=== PATIENT | male | born 1955 | race American Indian/Alaskan Native ===

== ENCOUNTER 2024-08-01 15:32 | Emergency (ER) | payer MEDICARE, MEDICAID, SELFPAY ==
--- NOTE | 2024-08-01 15:38 | EDNOTE_ITS ---
ED General RME/HPI General Chief complaint: General Adult/Misc Complain Stated complaint: CATHETER ISSUES Time Seen by Provider: 08/01/24 15:37 Arrival date/time: 08/01/24 15:32 CC: Clogged Arevalo catheter onset yesterday, patient has no sensation, patient presents the ER via EMS who reports stable vital signs from assisted care facility for catheter not draining. Patient has no specific complaints Related Data Home Medications ?Medication ?Instructions ?Recorded ?Confirmed tamsulosin 0.4 mg capsule 0.4 mg PO QDAY 12/28/20 03/15/24 atorvastatin 10 mg tablet 1 tab PO HS 03/14/22 03/15/24 oxybutynin chloride 5 mg tablet 5 mg PO QDAY 12/10/22 03/15/24 ascorbic acid (vitamin C) 500 mg 500 mg PO QDAY 07/02/23 03/15/24 tablet bisacodyl 10 mg rectal suppository 10 mg NJ QDAY PRN Constipation 07/02/23 03/15/24 (Dulcolax (bisacodyl)) hydrocodone 10 mg-acetaminophen 1 tab PO Q8H PRN Pain (Scale Score 07/02/23 03/15/24 325 mg tablet 4-6) ibuprofen 200 mg tablet 200 mg PO Q6H PRN Pain (Scale 07/02/23 03/15/24 Score 1-3) sodium phosphates 19 gram-7 118 ml NJ QDAY PRN Constipation 07/02/23 03/15/24 gram/118 mL enema (Fleet Enema) Previous Rx's ?Medication ?Instructions ?Recorded ciprofloxacin HCl 500 mg tablet 500 mg PO BID #14 tabs 01/03/24 (Cipro) sulfamethoxazole 800 1 tab PO BID 7 days #14 tabs 08/01/24 mg-trimethoprim 160 mg tablet (Bactrim DS) Allergies Allergy/AdvReac Type Severity Reaction Status Date / Time No Known Allergies Allergy Verified 03/15/24 10:00 Review of Systems Review of Systems Narrative Review of Systems: GEN: No fever, no chills, no weight loss EYES: No discharge, no visual changes, no pain HEENT: No ear pain, no congestion, no sore throat PULM: No shortness of breath, no cough, no congestion CV: No chest pain, no dyspnea on exertion, no palpitations GI: No nausea, no vomiting, no diarrhea, no pain, no constipation : No frequency, no urgency, no dysuria MUSC/SKEL: No joint pain, no back pain SKIN: No rash PSYCH: No hallucinations, no depression HEME/LYMPH: No easy bleeding or bruising tendencies NEURO: No weakness, no headache Past Medical History Past Medical History NEUROLOGIC: Positive Cerebrovascular Accident; Negative Neurological Disorders or Seizures CARDIAC: Positive Cardiac Disorders, Peripheral Vascular Disease and Hypertension; Negative Congestive Heart Failure RESPIRATORY: Negative Chronic Obstructive Pulmonary Disease (COPD) or Asthma GASTROINTESTINAL: Negative Gastrointestinal Disorders or Hepatitis GENITOURINARY: Positive Genitourinary Disorders, Renal Disease and Benign Prostatic Hyperplasia MUSCULOSKELETAL: Positive Musculoskeletal Disorders; Negative Rheumatoid Arthritis, Gout or Osteomyelitis ENT: Negative Cataracts ENDOCRINE: Negative Diabetes Mellitus Type 1 or Diabetes Mellitus Type 2 HEMATOLOGIC: Negative Blood Disorders or Sickle Cell Disease OTHER HISTORY: Positive Hospitalization and Falls; Negative Autoimmune Disease, Shingles, Blood Transfusions, Anesthesia Reactions, MRSA, Human Immunodeficiency Virus (HIV), Measles or Cancer Family History FAMILY HISTORY: Negative Family Psychiatric Problems, Family Respiratory Disorders, Family Cardiac Disorders, Family Gastrointestinal Problems, Family Cancer, Family Surgery or Family Anesthesia Reaction Surgical History SURGICAL: Negative Cardiac Surgery, Endocrine Surgery, Thyroidectomy, Ear Surgery or Abdominal Surgery Social History SMOKING STATUS: Never smoker SECOND HAND EXPOSURE: No SUBSTANCE USE: marijuana ED Exam Narrative Physical exam: [General: Deconditioned but not in any acute distress Head normocephalic HEENT: Within acceptable limits Neck is supple nontender Chest equal chest rise nontender to palpation Respiratory: Clear to auscultation no wheezes crackles or rubs CV: Rate rhythm is regular no murmurs rubs or clicks Abdomen is distended secondary to body habitus soft nontender no masses positive bowel sounds all 4 quadrants Back: No CVA tenderness no spinous process tenderness from cervical spine thoracic and lumbar spine Skin: Intact no petechiae rash induration ulceration or crepitus Extremities: Moving all extremity against resistance cap refill less than 2 seconds neurosensory intact Neuro: Awake alert oriented x3 Glascow coma 15 no focal deficits] Course Course Course Narrative: Review of old urine culture and sensitivity, the most recent, shows that it is Proteus Mirabelli, is a bacterium and it is sensitive to ceftriaxone and Bactrim. Quality Measures none Orders Category Date Time Status Arevalo [Urinary Catheter] Care 08/01/24 15:37 Completed Urinalysis Stat Lab 08/01/24 18:42 Completed Urine Culture Stat Lab 08/01/24 18:42 Received cefTRIAXone [Rocephin] 1,000 mg Med 08/01/24 19:33 Discontinued Lidocaine 1% 20 ml [Xylocaine 1% 20 ML] 2.1 ml IM X1 Vital Signs Vital signs: Vital Signs Temperature 98.4 F 08/01/24 15:59 Pulse Rate 55 L 08/01/24 15:59 Respiratory Rate 18 08/01/24 15:59 Blood Pressure 110/67 08/01/24 15:59 Pulse Oximetry (%) 96 08/01/24 15:59 Oxygen Delivery Method Room Air 08/01/24 15:59 [facility] Patient data External records reviewed:: [facility] previous records and EMS form Clinical information provided by:: patient and EMS Social determinants that could affect healthcare access:: none Patient has the following chronic illnesses:: Paraplegia How is presenting disease/condition affected by chronic disease/condition?: uneffected by Evaluation data The following diagnostics were reviewed and interpreted by me:: lab results Lab and/or radiology exams considered but not ordered:: Urine is positive for UTI Interpretation Summary: UTI Arevalo change Medications Medications considered but not ordered:: Negative Medication administrations:: Medication Administration History Discontinued Medications Ceftriaxone Sodium 1,000 mg/ (Lidocaine HCl 2.1 ml) 0 mg IM X1 ONE Stop: 08/01/24 19:34 Last Admin: 08/01/24 20:42 Dose: 1,000 mg Documented By: DB None Consultations Consultation(s) initiated? (list below): No Diagnosis Differential Diagnosis ED Complaint MDM: UTI Arevalo change Arevalo obstruction Most likely diagnosis given after review of the tests above:: UTI Arevalo change Admission Indicated Admission indicated?: not indicated Explain why admission is indicated or not indicated:: Stable for discharge Admission Request Was there a request for admission?: No Disposition Plan Disposition Plan: Discharge Discharge Attestation Discharge Attestation: The patient and all family members were given an opportunity to ask questions and understood the discharge instructions. Discharge instructions specifically effects, indications for sooner follow up or return to the emergency department, and the expected course of current diagnosis. Patient condition: Stable Medical Decision Making Differential Diagnosis Differential Diagnosis: UTI Arevalo change Arevalo obstruction Lab Data Labs: Lab Results 08/01/24 Range/Units 18:42 Ur Collection Type Catheter Urine Color Yellow (Lt Yel-Yel) Urine Clarity Turbid A (Clear/Hazy) Urine pH 7.5 H (5.0-7.0) Ur Specific [place] 1.019 (1.001-1.035) Urine Protein 3+ A (Neg - Trace) Urine Glucose (UA) Negative (Negative) Urine Ketones Negative (Negative) Urine Blood 2+ A (Negative) Urine Nitrite Positive (Negative) Urine Bilirubin Negative (Negative) Urine Urobilinogen (Auto) Negative (0.0-1.0) mg/dL Ur Leukocyte Esterase Positive (Negative) Urine RBC 175 H (0-3) /hpf Urine WBC 631 H (0-5) /hpf Ur Squamous Epith Cells 5 (0-5) /hpf Urine Bacteria 3+ A (None) Urine Yeast (Budding) Present A (None) Discharge Plan Plan Patient Disposition: HOME (Self Care) Patient condition on transfer: Stable Prescriptions/Referrals Prescriptions/Med Rec: New sulfamethoxazole-trimethoprim [Bactrim DS] 800-160 mg tablet 1 tab PO BID 7 Days Qty: 14 0RF No Action tamsulosin 0.4 mg Capsule 0.4 mg PO QDAY atorvastatin 10 mg tablet 1 tab PO HS Patient Comments: TAKE 1 TABLET BY MOUTH EVERYDAY AT BEDTIME oxybutynin chloride 5 mg Tablet 5 mg PO QDAY hydrocodone-acetaminophen 10-325 mg Tablet 1 tab PO Q8H PRN (Reason: Pain (Scale Score 4-6)) ascorbic acid (vitamin C) 500 mg Tablet 500 mg PO QDAY bisacodyl [Dulcolax (bisacodyl)] 10 mg Suppository 10 mg NJ QDAY PRN (Reason: Constipation) Fleet Enema 19-7 gram/118 mL Enema 118 ml NJ QDAY PRN (Reason: Constipation) ibuprofen 200 mg Tablet 200 mg PO Q6H PRN (Reason: Pain (Scale Score 1-3)) ciprofloxacin HCl [Cipro] 500 mg tablet 500 mg PO BID Qty: 14 0RF Referrals: No Primary/Family,Physician [Primary Care Provider] - In 1 week Problem List Clinical Impression: Urinary tract infection, Obstructed Arevalo catheter Patient/Caregiver Discharge Instructions Education Materials: ED Bladder Infection, Male (Adult) Additional Instructions: Take the medications until complete and return the emergency room if there is worsening of symptoms. Print Language: Macedonian Stand Alone Forms: [employer] Patient Portal Info Letter MD Attestation MD Attestation The patient was seen by the midlevel practitioner. I, the co-signing physician, was present during the entire ER visit. While I did not physically examine the patient, I was available for consultation as needed.
[2024-08-01 15:59] VITALS: BP 110/67; PULSE 55; PULSE 78; RESP 18; RESP 20; TEMP 36.9; O2SAT 96; O2SAT 98; BMI 26.7
[2024-08-01 18:04] VITALS: BP 109/62; PULSE 49; RESP 13; TEMP 36.6; O2SAT 97
[2024-08-01 18:57] LABS: Collection Type, Urine Catheter
[2024-08-01 19:13] LABS: Bacteria,Urine 3+; Bilirubin,Urine Negative (Negative); Blood,Urine 2+ (Negative); Budding Yeast,Urine Present; Glucose, Urine Negative (Negative); Ketones,Urine Negative (Negative); Leukocyte Esterase,Urine Positive (Negative); Nitrite,Urine Positive (Negative); PH,Urine 7.5 (5.0-7.0); Protein,Urine 3+ (Neg - Trace); RBC,Urine 175 /hpf (0-3); Specific Gravity,Urine 1.019 (1.001-1.035); Squamous Epithelial Cell,Urine 5 /hpf (0-5); Urobilinogen,Urine Negative mg/dL (0.0-1.0); WBC,Urine 631 /hpf (0-5)
[2024-08-01 19:17] LABS: Clarity,Urine Turbid (Clear/Hazy); Color,Urine Yellow (Lt Yel-Yel)
[2024-08-01] MEDS: cefTRIAXone 1,000 MG, LIDOCAINE 1% 20 ML 2.1 ML IM (20:42)
--- NOTE | 2024-08-01 20:53 | PC.NURSE ---
Called [facility] and spoke to Maegan SAUCEDO, to whom i gave full report
== END 2024-08-01 21:15 | disposition home or self-care (01) ==
PROVIDERS: Registered Nurse General Practice; Emergency Provider Emergency Medicine
DX: T83.091A Other mechanical complication of indwelling urethral catheter, initial encounter (principal); N39.0 Urinary tract infection, site not specified
CPT/HCPCS: 51702; 81001; 87077; 87086; 87186; 96372; 99283; J0696; J3490

== ENCOUNTER 2024-09-14 07:58 | Emergency (ER) | payer MEDICARE, MEDICAID, SELFPAY ==
[2024-09-14 08:23] VITALS: PULSE 79; RESP 16; O2SAT 98; BMI 28.3
--- NOTE | 2024-09-14 08:36 | PD.EDADULT ---
ED General RME/HPI General Chief complaint: General Adult/Misc Complain Stated complaint: CATHETER CHANGE Time Seen by Provider: 09/14/24 08:31 Arrival date/time: 09/14/24 07:58 RME / HPI RME / HPI narrative: DR. FREEMAN MAIN ED EVALUATION: 69 year old male presents to the Emergency Department [facility] from [facility] with complaint of catheter leaking. Otherwise denies any other symptoms. Related Data Home Medications ?Medication ?Instructions ?Recorded ?Confirmed tamsulosin 0.4 mg capsule 0.4 mg PO QDAY 12/28/20 03/15/24 atorvastatin 10 mg tablet 1 tab PO HS 03/14/22 03/15/24 oxybutynin chloride 5 mg tablet 5 mg PO QDAY 12/10/22 03/15/24 ascorbic acid (vitamin C) 500 mg 500 mg PO QDAY 07/02/23 03/15/24 tablet bisacodyl 10 mg rectal suppository 10 mg [place] QDAY PRN Constipation 07/02/23 03/15/24 (Dulcolax (bisacodyl)) hydrocodone 10 mg-acetaminophen 1 tab PO Q8H PRN Pain (Scale Score 07/02/23 03/15/24 325 mg tablet 4-6) ibuprofen 200 mg tablet 200 mg PO Q6H PRN Pain (Scale 07/02/23 03/15/24 Score 1-3) sodium phosphates 19 gram-7 118 ml MI QDAY PRN Constipation 07/02/23 03/15/24 gram/118 mL enema (Fleet Enema) Previous Rx's ?Medication ?Instructions ?Recorded ciprofloxacin HCl 500 mg tablet 500 mg PO BID #14 tabs 01/03/24 (Cipro) cephalexin 500 mg capsule 500 mg PO QID #28 caps 09/14/24 Allergies Allergy/AdvReac Type Severity Reaction Status Date / Time No Known Allergies Allergy Verified 03/15/24 10:00 Review of Systems Review of Systems Systems Reviewed: All systems reviewed, normal except as documented Narrative Review of Systems: GEN: No fever, no chills, no weight loss EYES: No discharge, no visual changes, no pain HEENT: No ear pain, no congestion, no sore throat PULM: No shortness of breath, no cough, no congestion CV: No chest pain, no dyspnea on exertion, no palpitations GI: No nausea, no vomiting, no diarrhea, no pain, no constipation : No frequency, no urgency and no dysuria MUSC/SKEL: No joint pain, no back pain SKIN: No rash PSYCH: No hallucinations, no depression HEME/LYMPH: No easy bleeding or bruising tendencies NEURO: No weakness, no headache Past Medical History Past Medical History NEUROLOGIC: Positive Cerebrovascular Accident; Negative Neurological Disorders or Seizures CARDIAC: Positive Cardiac Disorders, Peripheral Vascular Disease and Hypertension; Negative Congestive Heart Failure RESPIRATORY: Negative Chronic Obstructive Pulmonary Disease (COPD) or Asthma GASTROINTESTINAL: Negative Gastrointestinal Disorders or Hepatitis GENITOURINARY: Positive Genitourinary Disorders, Renal Disease and Benign Prostatic Hyperplasia MUSCULOSKELETAL: Positive Musculoskeletal Disorders; Negative Rheumatoid Arthritis, Gout or Osteomyelitis ENT: Negative Cataracts ENDOCRINE: Negative Diabetes Mellitus Type 1 or Diabetes Mellitus Type 2 HEMATOLOGIC: Negative Blood Disorders or Sickle Cell Disease OTHER HISTORY: Positive Hospitalization and Falls; Negative Autoimmune Disease, Shingles, Blood Transfusions, Anesthesia Reactions, MRSA, Human Immunodeficiency Virus (HIV), Measles or Cancer Family History FAMILY HISTORY: Negative Family Psychiatric Problems, Family Respiratory Disorders, Family Cardiac Disorders, Family Gastrointestinal Problems, Family Cancer, Family Surgery or Family Anesthesia Reaction Surgical History SURGICAL: Negative Cardiac Surgery, Endocrine Surgery, Thyroidectomy, Ear Surgery or Abdominal Surgery Social History SMOKING STATUS: Never smoker SECOND HAND EXPOSURE: No SUBSTANCE USE: marijuana ED Exam Narrative Physical exam: GENERAL APPEARANCE: alert and oriented x 4, well-developed, well-nourished, no acute distress VITALS: All vitals were reviewed and the pulse ox is 98% on room air, which is normal according to my interpretation. HEENT: Normocephalic, atraumatic; pupils equal, round, reactive to light; EOMI; mucous membranes pink, moist; oropharynx clear NECK: Supple LUNGS: CTABL; no wheezes, no rales, no rhonchi HEART: Regular rate, regular rhythm; normal S1, S2; no murmurs ABDOMEN: non distended; normal BS; soft, no tenderness, no guarding, no rebound; no masses, no organomegaly, no hernia BACK: no CVA tenderness EXTREMITIES: atraumatic; no edema NEUROLOGIC: at baseline PSYCHIATRIC: at baseline SKIN: warm, dry, normal color; no rashes Course Quality Measures none Orders Category Date Time Status Arevalo [Urinary Catheter, Remove] ONCE Care 09/14/24 08:48 Completed Arevalo [Urinary Catheter] QS Care 09/14/24 08:48 Active UA, C/S IF [Urinalysis, C/S if Indicated] Stat Lab 09/14/24 09:00 Completed Urine Culture Stat Lab 09/14/24 09:00 Received cephALEXin [Keflex] Med 09/14/24 11:30 Discontinued 500 mg PO X1 ONE Vital Signs Vital signs: Vital Signs Temperature 98.4 F 09/14/24 08:50 Pulse Rate 57 L 09/14/24 08:50 Respiratory Rate 16 09/14/24 08:50 Blood Pressure 144/94 H 09/14/24 08:50 Pulse Oximetry (%) 97 09/14/24 08:50 Oxygen Delivery Method Room Air 09/14/24 08:50 [facility] Patient data External records reviewed:: [facility] previous records (Reviewed last ED visit dated 08/01/24, discharged with the following: Obstructed Arevalo catheter.) Clinical information provided by:: patient and EMS Social determinants that could affect healthcare access:: housing Patient has the following chronic illnesses:: Paraplegia How is presenting disease/condition affected by chronic disease/condition?: uneffected by Evaluation data The following diagnostics were reviewed and interpreted by me:: lab results Lab and/or radiology exams considered but not ordered:: none Interpretation Summary: UTI Medications Medications considered but not ordered:: none Medication administrations:: Medication Administration History Discontinued Medications Cephalexin HCl (Cephalexin 250 Mg Capsule) 500 mg PO X1 ONE Stop: 09/14/24 11:31 Last Admin: 09/14/24 12:44 Dose: 500 mg Documented By: SELYWN see above Consultations Consultation(s) initiated? (list below): No Diagnosis Differential Diagnosis ED Complaint MDM: UTI, pylonephritis, complication of Arevalo catheter, Arevalo catheter obstruct Most likely diagnosis given after review of the tests above:: Complication of Arevalo catheter UTI Admission Indicated Admission indicated?: not indicated Explain why admission is indicated or not indicated:: Patient has no emergent abnormalities on his studies and can be managed on an outpatient basis. Admission Request Was there a request for admission?: No Disposition Plan Disposition Plan: Discharge Discharge Attestation Discharge Attestation: The patient and all family members were given an opportunity to ask questions and understood the discharge instructions. Discharge instructions specifically effects, indications for sooner follow up or return to the emergency department, and the expected course of current diagnosis. Patient condition: Stable Medical Decision Making Differential Diagnosis Differential Diagnosis: UTI, pylonephritis, complication of Arevalo catheter, Arevalo catheter obstruct Lab Data Labs: Lab Results 09/14/24 Range/Units 09:00 Ur Collection Type Catheter Urine Color Lt-Yellow (Lt Yel-Yel) Urine Clarity Cloudy A (Clear/Hazy) Urine pH 7.5 H (5.0-7.0) Ur Specific [place] 1.012 (1.001-1.035) Urine Protein 2+ A (Neg - Trace) Urine Glucose (UA) Negative (Negative) Urine Ketones Negative (Negative) Urine Blood 3+ A (Negative) Urine Nitrite Positive (Negative) Urine Bilirubin Negative (Negative) Urine Urobilinogen (Auto) Negative (0.0-1.0) mg/dL Ur Leukocyte Esterase Positive (Negative) Urine RBC 291 H (0-3) /hpf Urine WBC 574 H (0-5) /hpf Ur Squamous Epith Cells 5 (0-5) /hpf Urine Bacteria 3+ A (None) Ur Culture Indicated? Yes Discharge Plan Plan Patient Disposition: Xfer Skilled Nsg Fac (SNF) Prescriptions/Referrals Prescriptions/Med Rec: New cephalexin 500 mg capsule 500 mg PO QID Qty: 28 0RF No Action tamsulosin 0.4 mg Capsule 0.4 mg PO QDAY atorvastatin 10 mg tablet 1 tab PO HS Patient Comments: TAKE 1 TABLET BY MOUTH EVERYDAY AT BEDTIME oxybutynin chloride 5 mg Tablet 5 mg PO QDAY hydrocodone-acetaminophen 10-325 mg Tablet 1 tab PO Q8H PRN (Reason: Pain (Scale Score 4-6)) ascorbic acid (vitamin C) 500 mg Tablet 500 mg PO QDAY bisacodyl [Dulcolax (bisacodyl)] 10 mg Suppository 10 mg MI QDAY PRN (Reason: Constipation) Fleet Enema 19-7 gram/118 mL Enema 118 ml MI QDAY PRN (Reason: Constipation) ibuprofen 200 mg Tablet 200 mg PO Q6H PRN (Reason: Pain (Scale Score 1-3)) ciprofloxacin HCl [Cipro] 500 mg tablet 500 mg PO BID Qty: 14 0RF Problem List Clinical Impression: Complication of Arevalo catheter, UTI (urinary tract infection) Patient/Caregiver Discharge Instructions Education Materials: Urinary Tract Infections in Men, ED Arevalo Catheter, Care Print Language: [place]araguan Stand Alone Forms: [employer] Patient Portal Info Letter
[2024-09-14 08:50] VITALS: BP 144/94; PULSE 57; RESP 16; TEMP 36.9; O2SAT 97
[2024-09-14 09:18] LABS: Collection Type, Urine Catheter
[2024-09-14 09:29] LABS: Bacteria,Urine 3+; Bilirubin,Urine Negative (Negative); Blood,Urine 3+ (Negative); Glucose, Urine Negative (Negative); Ketones,Urine Negative (Negative); Leukocyte Esterase,Urine Positive (Negative); Nitrite,Urine Positive (Negative); PH,Urine 7.5 (5.0-7.0); Protein,Urine 2+ (Neg - Trace); RBC,Urine 291 /hpf (0-3); Specific Gravity,Urine 1.012 (1.001-1.035); Squamous Epithelial Cell,Urine 5 /hpf (0-5); Urobilinogen,Urine Negative mg/dL (0.0-1.0); WBC,Urine 574 /hpf (0-5)
[2024-09-14 09:30] LABS: Clarity,Urine Cloudy (Clear/Hazy); Color,Urine Lt-Yellow (Lt Yel-Yel); Culture Indicated,Urine Yes
[2024-09-14 11:03] VITALS: BP 130/75; PULSE 70; RESP 18; TEMP 36.7; O2SAT 98
--- NOTE | 2024-09-14 12:05 | PC.CC ---
ASElisa Watson was consulted by frog farmer Kristina for transportation back to [facility] for patient. Patient confirmed information on facesheet. ASW arranged transportation with [facility] and [facility].
[2024-09-14] MEDS: cephALEXin 250 MG CAPSULE 500 MG PO (12:44)
[2024-09-14 12:46] VITALS: BP 150/87; PULSE 60; RESP 18; O2SAT 97
--- NOTE | 2024-09-14 12:57 | PC.NURSE ---
TELEPHONE REPORT CALLED TO DON AT [facility] AT THIS TIME, PATIENT PENDING TRANSPORTATION BACK TO NURSING FACILITY.
[2024-09-14 14:33] VITALS: BP 142/83; PULSE 57; RESP 17; TEMP 36.6; O2SAT 98
[2024-09-14 16:50] VITALS: BP 127/96; PULSE 88; RESP 16; O2SAT 97
== END 2024-09-14 16:51 | disposition skilled nursing facility (03) ==
LOC: SERX 18:30
PROVIDERS: Emergency Provider Emergency Medicine
DX: T83.038A Leakage of other urinary catheter, initial encounter (principal); N39.0 Urinary tract infection, site not specified; Y84.6 Urinary catheterization as the cause of abnormal reaction of the patient, or of later complication, without mention of misadventure at the time of the procedure
CPT/HCPCS: 51702; 81001; 87077; 87086; 87186; 99283; A9270

== ENCOUNTER 2024-10-24 22:20 | Emergency (ER) | payer MEDICARE, MEDICAID, SELFPAY ==
[2024-10-24 22:27] VITALS: PULSE 96; RESP 18; O2SAT 98; BMI 27.4
[2024-10-24 22:30] VITALS: BP 133/88; PULSE 94; RESP 18; TEMP 38.3; O2SAT 98
[2024-10-24 22:52] LABS: Collection Type, Urine Catheter
[2024-10-24 23:08] LABS: Bilirubin,Urine Negative (Negative); Blood,Urine 3+ (Negative); Budding Yeast,Urine Present; Glucose, Urine Negative (Negative); Ketones,Urine Negative (Negative); Leukocyte Esterase,Urine Positive (Negative); Nitrite,Urine Positive (Negative); Protein,Urine 2+ (Neg - Trace); RBC,Urine 566 /hpf (0-3); Specific Gravity,Urine 1.023 (1.001-1.035); Squamous Epithelial Cell,Urine 26 /hpf (0-5); Urobilinogen,Urine Negative mg/dL (0.0-1.0); WBC,Urine 553 /hpf (0-5)
[2024-10-24 23:09] LABS: Clarity,Urine Turbid (Clear/Hazy); Color,Urine Yellow (Lt Yel-Yel)
--- NOTE | 2024-10-24 23:15 | EKG_ITS ---
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
--- NOTE | 2024-10-24 23:15 | XR_ITS ---
Examination: AP chest single view Technique one AP portable semiupright chest single view Exam date and time: October 24, 2024 11:40 PM Comparison October 28, 2021 Indications: Sepsis alert today Findings: Normal heart size No pneumonia or pulmonary edema Prominent osteopenia The patient's head overlies the right chest Impression: No pneumonia identified
--- NOTE | 2024-10-24 23:17 | EDNOTE_ITS ---
ED Male Genitalurinary RME/HPI General Chief complaint: Urogenital-Male Stated complaint: ABD PAIN Time Seen by Provider: 10/24/24 22:46 Arrival date/time: 10/24/24 22:20 RME / HPI RME / HPI Narrative: Dr. Dejesus?s Main ED Evaluation: 69yo male LYNDON from [facility] presents to the ED due to his coronel catheter being clogged. Per EMS, patient states his coronel catheter has been clogged since Thursday. Patient states his lower abdomen has been hurting today, so he was sent over for evaluation. He states he has been drinking fluids. He denies any fever, chills, chest pain or any other associated symptoms. No known allergies. PMHx: indwelling coronel catheter, hemiplegia s/p CVA, PVD, seizures Related Data Home Medications ?Medication ?Instructions ?Recorded ?Confirmed tamsulosin 0.4 mg capsule 0.4 mg PO QDAY 12/28/2011/07 atorvastatin 10 mg tablet 1 tab PO HS 03/14/22 4 oxybutynin chloride 5 mg tablet 5 mg PO QDAY 12/10/22 03/15/24 ascorbic acid (vitamin C) 500 mg 500 mg PO QDAY 03/15/24 tablet bisacodyl 10 mg rectal suppository 10 mg KS QDAY PRN C onstipation 07/02/23 03/15/24 (Dulcolax (bisacodyl)) hydrocodone 10 mg-acetaminophen 1 tab PO Q8H PRN Pain (Scale Score 07/02/23 03/15/24 325 mg tablet 4-6) ibuprofen 200 mg tablet 200 mg PO Q6H PRN Pain (Scal e 07/02/23 03/15/24 Score 1-3) sodium phosphates 19 gram-7 118 ml KS QDAY PRN Constip ation 07/02/23 03/15/24 gram/118 mL enema (Fleet Enema) Previous Rx's ?Medication ?Instructions ?Recorded ciprofloxacin HCl 500 mg tablet 500 mg PO BID #14 tabs 01/03/24 (Cipro) cephalexin 500 mg capsule 500 mg PO QID #28 caps 09/14 Allergies Allergy/AdvReac Type Severity Reaction Status Date / Time No Known Allergies Allergy Verified 03/15/24 10:00 Review of Systems Review of Systems Systems Reviewed: All systems reviewed, normal except as documented Past Medical History Past Medical History NEUROLOGIC: Positive Cerebrovascular Accident; Negative Neurological Disorders or Seizures CARDIAC: Positive Cardiac Disorders, Peripheral Vascular Disease and Hypertension; Negative Congestive Heart Failure RESPIRATORY: Negative Chronic Obstructive Pulmonary Disease (COPD) or Asthma GASTROINTESTINAL: Negative Gastrointestinal Disorders or Hepatitis GENITOURINARY: Positive Genitourinary Disorders, Renal Disease and Benign Prostatic Hyperplasia MUSCULOSKELETAL: Positive Musculoskeletal Disorders; Negative Rheumatoid Arthritis, Gout or Osteomyelitis ENT: Negative Cataracts ENDOCRINE: Negative Diabetes Mellitus Type 1 or Diabetes Mellitus Type 2 HEMATOLOGIC: Negative Blood Disorders or Sickle Cell Disease OTHER HISTORY: Positive Hospitalization and Falls; Negative Autoimmune Disease, Shingles, Blood Transfusions, Anesthesia Reactions, MRSA, Human Immunodeficiency Virus (HIV), Measles or Cancer Family History FAMILY HISTORY: Negative Family Psychiatric Problems, Family Respiratory Disorders, Family Cardiac Disorders, Family Gastrointestinal Problems, Family Cancer, Family Surgery or Family Anesthesia Reaction Surgical History SURGICAL: Negative Cardiac Surgery, Endocrine Surgery, Thyroidectomy, Ear Surgery or Abdominal Surgery Social History SMOKING STATUS: Never smoker SECOND HAND EXPOSURE: No SUBSTANCE USE: marijuana ED Exam Narrative Physical exam: GENERAL APPEARANCE: alert and oriented x 4, well-developed, well-nourished, no acute distress VITALS: All vitals were reviewed and the pulse ox is 98% on room air, which is normal according to my interpretation. HEENT: Normocephalic, atraumatic; pupils equal, round, reactive to light; EOMI; mucous membranes pink, moist; oropharynx clear NECK: Supple LUNGS: CTABL; no wheezes, no rales, no rhonchi HEART: Regular rate, regular rhythm; normal S1, S2; no murmurs ABDOMEN: distended; normal BS; firm, no tenderness, no guarding, no rebound; no masses, no organomegaly, no hernia BACK: no CVA tenderness : indwelling coronel catheter in place with a small amount of dark urine EXTREMITIES: atraumatic; no edema; spastic right-sided hemiparalysis NEUROLOGIC: awake; alert and oriented x4; cranial nerves II-XII grossly intact; no focal sensory or motor deficits PSYCHIATRIC: appropriate mood and affect SKIN: warm, dry, normal color; no rashes Course Course Course Narrative: 2317: Sepsis alert initiated. Orders made at this time are congruent with ED Adult Sepsis Order List. Re-evaluation is to be completed. CXR is ordered for determining the etiology of fever. 2331: NS IVF started. Patient is still receiving IVF at the time of admission. Quality Measures none Orders Category Date Time Status Turner Machine Operator STAT Care 10/24/24 23:15 Active Continuous Pulse Oximetry STAT Care 10/24/24 23:15 Completed EKG (ED ONLY) *Do not use* NOW Care 10/24/24 23:15 Completed Coronel [Urinary Catheter] QS Care 10/24/24 22:33 Active Insert IV NOW Care 10/24/24 23:15 Active NPO STAT Care 10/24/24 23:15 Active Strict Intake and Output Routine Care 10/24/24 23:15 Ordered EKG (ED Only) Stat Exams 10/24/24 23:15 Draft XR chest 1V portable Stat Exams 10/24/24 23:15 Completed B-Type Natriuretic Peptide Stat Lab 10/24/24 23:35 Completed Blood Culture (Lab) Stat Lab 10/24/24 23:35 Received CBC Stat Lab 10/24/24 23:35 Completed Comprehensive Metabolic Panel Stat Lab 10/24/24 23:35 Completed LDH (Lactate Dehydrogenase) Stat Lab 10/24/24 23:35 Completed Lactate (Lactic Acid) Stat Lab 10/24/24 23:35 Completed Lipase Stat Lab 10/24/24 23:35 Completed Magnesium Stat Lab 10/24/24 23:35 Completed Partial Thromboplastin Time Stat Lab 10/24/24 23:35 Completed Phosphorous Stat Lab 10/24/24 23:35 Completed Procalcitonin Stat Lab 10/24/24 23:35 Completed Prothrombin Time with INR Stat Lab 10/24/24 23:35 Completed Troponin I Stat Lab 10/24/24 23:35 Completed Urinalysis Stat Lab 10/24/24 22:38 Completed Urine Culture Stat Lab 10/24/24 22:38 Received Sodium Chloride 0.9% 1000 ml [Ns] 1,776 ml Med 10/24/24 23:15 Discontinued IV 1,776 mls/hr cefTRIAXone [Rocephin] 1,000 mg Med 10/24/24 23:15 Discontinued Sodium Chloride 0.9% (P) [Ns 0.9% (P)] 50 ml IV X1 Vital Signs Vital signs: Vital Signs Temperature 100.9 F H 10/24/24 22:30 Pulse Rate 94 10/24/24 22:30 Respiratory Rate 18 10/24/24 22:30 Blood Pressure 133/88 H 10/24/24 22:30 Pulse Oximetry (%) 98 10/24/24 22:30 Oxygen Delivery Method Room Air 10/24/24 22:30 Urogenital - Male MDM Narrative MDM Narrative:: Scribe Attestation: 10/24/24 - Rula Valdes am scribing for and in the presence of Dr. Dejesus. Patient data External records reviewed:: [facility] previous records (Per chart review, patient was seen here on 09/14/24 for complication of coronel catheter.) Clinical information provided by:: patient Social determinants that could affect healthcare access:: housing (SNF resident) Patient has the following chronic illnesses:: indwelling coronel catheter, hemiplegia s/p CVA, PVD, seizures How is presenting disease/condition affected by chronic disease/condition?: caused by Evaluation data The following diagnostics were reviewed and interpreted by me:: lab results, radiology exam(s) and EKG tracing(s) Lab and/or radiology exams considered but not ordered:: none Interpretation Summary: UA is positive for a UTI, CBC is normal, BUN is 26, Lactic Acid is normal, Procalcitonin is normal, according to my interpretation. CXR shows normal cardiac silhouette, normal sharp diaphragmatic edge, bilateral perihilar infiltrates, normal costophrenic angles, tortuous appearing trachea, according to my interpretation. EKG done at 2325, NSR, rate of 96, left axis deviation, no ectopy, no acute ischemia, according to my interpretation. Medications / Prescriptions Medications or Prescriptions considered but not ordered:: none Medication administrations:: Medication Administration History Discontinued Medications Sodium Chloride (Ns) 1,776 mls @ 1,776 mls/hr 30 ml/kg infuse over 60 min (1776 ml) IV .Q1H ONE Stop: 10/25/24 00:14 Last Admin: 10/24/24 23:31 Dose: 1,776 mls/hr Documented By: AIDA Ceftriaxone Sodium 1,000 mg/ (Sodium Chloride) 50 mls @ 100 mls/hr IV X1 ONE Stop: 10/24/24 23:44 Last Infusion: 10/25/24 00:01 Dose: Infused Documented By: Admin: 10/24/24 23:30 Dose: 100 mls/hr Documented By: CB see above Consultations Consultation(s) initiated? (list below): Yes Consultation #1 (Physician, Specialty, Details): Discussed case with [the resident physician, attending Dr. Lubin] from Hospitalist service regarding admission. Discussed patients ED course, exam findings, labs, and radiology results. The Hospitalist will evaluate the patient for admission. Time: 00:44 Consultation #2 (Physician, Specialty, Details): Spoke with Dr. Lubin, our hospitalist, who feels the patient can be discharged on outpatient antibiotics. Time: 01:31 Diagnosis Urogenital Male Differential Diagnosis: urinary tract infection and other (urosepsis, urinary retention, renal failure, septic shock) Most likely diagnosis given after review of the tests above:: see below Admission Indicated Admission indicated?: not indicated Admission Request Was there a request for admission?: No Disposition Plan Disposition Plan: Discharge Discharge Attestation Discharge Attestation: The patient and all family members were given an opportunity to ask questions an d understood the discharge instructions. Discharge instructions specifically effects, indications for sooner follow up or return to the emergency department, and the expected course of current diagnosis. Patient condition: Stable Critical Care Time Critical Care Time Critical Care Time: Yes Total Critical Care Time (min.): 45 Attestation: The high probability of sudden, clinically significant deterioration in the patient?s condition required the highest level of my preparedness to intervene urgently. The services I provided to this patient were to treat and/or prevent clinically significant deterioration. Services included the following: chart data review, reviewing nursing notes and/or old charts, documentation time, trousseau consultant collaboration regarding findings and treatment options, medication orders and management, direct patient care, vital sign assessments and ordering, interpreting and reviewing diagnostic studies and lab tests. Aggregate critical care time includes only time during which I was engaged in work directly related to the patient?s care, as described above, whether at bedside or elsewhere in the Emergency Department. It did not include time spent performing other reported procedures or the services of residents, students, nurses or physician assistants. Discharge Plan Plan Patient Disposition: Admit Acute Care w/in Hospital Prescriptions/Referrals Prescriptions/Med Rec: No Action tamsulosin 0.4 mg Capsule 0.4 mg PO QDAY atorvastatin 10 mg tablet 1 tab PO HS Patient Comments: TAKE 1 TABLET BY MOUTH EVERYDAY AT BEDTIME oxybutynin chloride 5 mg Tablet 5 mg PO QDAY hydrocodone-acetaminophen 10-325 mg Tablet 1 tab PO Q8H PRN (Reason: Pain (Scale Score 4-6)) ascorbic acid (vitamin C) 500 mg Tablet 500 mg PO QDAY bisacodyl [Dulcolax (bisacodyl)] 10 mg Suppository 10 mg KS QDAY PRN (Reason: Constipation) Fleet Enema 19-7 gram/118 mL Enema 118 ml KS QDAY PRN (Reason: Constipation) ibuprofen 200 mg Tablet 200 mg PO Q6H PRN (Reason: Pain (Scale Score 1-3)) ciprofloxacin HCl [Cipro] 500 mg tablet 500 mg PO BID Qty: 14 0RF cephalexin 500 mg capsule 500 mg PO QID Qty: 28 0RF Problem List Clinical Impression: Sepsis, UTI (urinary tract infection), Dehydration Patient/Caregiver Discharge Instructions Print Language: [place] Stand Alone Forms: [employer] Info., Patient Portal Info Letter
[2024-10-24 23:25] VITALS: PULSE 97
[2024-10-24] MEDS: cefTRIAXone 1,000 MG in SODIUM CHLORIDE 0.9% (P) 50 ML 100 MG IV (23:30)
[2024-10-24] MEDS: SODIUM CHLORIDE 0.9% 1000 ML 1,776 ML 1776 ML IV (23:31)
[2024-10-24 23:46] LABS: Basophils # (Auto) 0.1 Thou/mm3 (0.0-0.2); Basophils % (Auto) 1 % (0-2.5); Eosinophils # (Auto) 0.3 Thou/mm3 (0.0-0.5); Eosinophils % (Auto) 3 % (0-10); Hematocrit 38.5 % (41.0-53.0); Hemoglobin 12.7 g/dL (13.5-16.0); Immature Granulocytes % (Auto) 0 % (0-0); Immature Granulocytes Auto 0.03 Thou/mm3 (0.00-0.00); Lactate (Lactic Acid) 1.1 mMol/L (0.4-2.0); Lymphocytes # (Auto) 1.9 Thou/mm3 (1.0-4.8); Lymphocytes % (Auto) 18 % (10-50); Mean Corpuscular Hemoglobin 28.6 pg (25.0-35.0); Mean Corpuscular Volume 87 fL (80-100); Monocytes # (Auto) 0.8 Thou/mm3 (0.0-0.8); Monocytes % (Auto) 7 % (0-12); Neutrophils # (Auto) 7.4 Thou/mm3 (1.8-7.7); Neutrophils % (Auto) 71 % (37-80); Nucleated Red Blood Cell % 0 /100 WBC (0); Platelet Count 216 Thou/mm3 (140-440); RDW Standard Deviation 43.6 fL (35.1-43.9); Red Blood Count 4.44 Miln/mm3 (4.50-5.90); White Blood Count 10.4 Thou/mm3 (3.8-10.6)
[2024-10-25 00:04] LABS: INR 1.1 (0.9-1.3); Partial Thromboplastin Time 29.9 Seconds (22.0-36.0); Prothrombin Time 11.9 Seconds (9.0-12.2)
[2024-10-25 00:08] LABS: B-Type Natriuretic Peptide 30 pg/mL (0-100)
[2024-10-25 00:17] LABS: Alanine Aminotransferase 35 U/L (10-49); Albumin/Globulin Ratio 1.2 (1.2-2.2); Alkaline Phosphatase 138 U/L (46-116); Anion Gap 9 (7-16); Aspartate Amino Transferase 43 U/L (0-34); BUN/Creatinine Ratio 26 Ratio (12-20); Bilirubin,Total 0.5 mg/dL (0.3-1.2); Blood Urea Nitrogen 26 mg/dL (9-23); Calcium 9.2 mg/dL (8.3-10.6); Calcium (Corrected) 9.2 mg/dL (8.5-10.1); Carbon Dioxide 22.5 mMol/L (20.0-31.0); Chloride 113 mMol/L (98-107); Estimated Creatinine Clearance 63.7 mL/min (>60); Globulin 3.3 gm/dL (2.3-3.5); Glucose 117 mg/dL (74-106); LDH (Lactate Dehydrogenase) 208 U/L (120-246); Lipase 36 U/L (12-53); Osmolality,Calculated 292 (275-295); Phosphorous 2.7 mg/dL (2.4-5.1); Potassium 3.6 mMol/L (3.4-5.1); Procalcitonin 0.13 ng/ml (0.0-0.49); Sodium 144 mMol/L (136-145); Total Protein 7.3 gm/dL (5.7-8.2); Troponin I < 0.020 ng/mL (0.0-0.045); eGFR > 60 See Note
--- NOTE | 2024-10-25 01:41 | ESCONSULT_ITS ---
HPI Data of Consult Patient: new to practice Consult date: 10/25/24 Requesting Physician: Anam Dejesus Attending Provider: Blayne Lubin Consult Narrative Reason for consult: Urinary tract infection History of present illness: Mr. Pryor is a 69-year-old male with history of hemiplegia status post CVA, chronically bedbound, hypertension, BPH, hyperlipidemia and peripheral vascular disease who presented to [facility] emergency department on 10/24/2024 with a chief complaint of Arevalo catheter being clogged. Per patient his Arevalo had been clogged at the facility, patient at bedside reported that he is feeling fine, denies any fevers, chills and urinary discomfort. Patient has a chronic indwelling Arevalo catheter for about 2 years. Per patient's chart review patient had multiple ED visits for poor drainage/dislodged Arevalo was discharged on oral antibiotics for management of UTI. Of note patient was admitted and June 2023 for sepsis secondary to pyelonephritis. Patient met SIRS criteria 2/4, tachycardia heart rate more than 90, temp 100.9 on presentation, sepsis alert was called in ED. ED Course: ED Vitals: On presentation BP 106/76, P74, RR 18, temp 98.9, O2 sat 97 on room air ED Labs: ED labs significant for hemoglobin 12.7, RBC 4.44, chloride 113, BUN 26, glucose 117, AST 43, alk phos 138. UA significant for positive nitrite, positive leukocyte esterase, WBC 553, squamous epithelial cells 26, bacteria none ED Imaging:Chest x-ray in ED negative for pneumonia EKG shows sinus rhythm ED Treatment:Patient was given IV ceftriaxone and IV fluids per sepsis protocol cc:: cc: Review of Systems Review of Systems Narrative Review of Systems: ROS: -CONSTITUTIONAL: Denies weight loss, fever and chills. -HEENT: Denies changes in vision and hearing. -RESPIRATORY: Denies SOB and cough. -CV: Denies palpitations and Chest Pain. -GI: Denies abdominal pain, nausea, vomiting,constipation and diarrhea. -: Denies dysuria and urinary frequency. -MSK: Denies myalgia and joint pain. -SKIN: Denies rash and pruritus. -NEUROLOGICAL: Denies headache and syncope. -PSYCHIATRIC: Denies recent changes in mood. Denies anxiety and depression. Past Medical History Past Medical History NEUROLOGIC: Positive Cerebrovascular Accident; Negative Neurological Disorders or Seizures CARDIAC: Positive Cardiac Disorders, Peripheral Vascular Disease and Hypertension; Negative Congestive Heart Failure RESPIRATORY: Negative Chronic Obstructive Pulmonary Disease (COPD) or Asthma GASTROINTESTINAL: Negative Gastrointestinal Disorders or Hepatitis GENITOURINARY: Positive Genitourinary Disorders, Renal Disease and Benign Prostatic Hyperplasia MUSCULOSKELETAL: Positive Musculoskeletal Disorders; Negative Rheumatoid Arthritis, Gout or Osteomyelitis ENT: Negative Cataracts ENDOCRINE: Negative Diabetes Mellitus Type 1 or Diabetes Mellitus Type 2 HEMATOLOGIC: Negative Blood Disorders or Sickle Cell Disease OTHER HISTORY: Positive Hospitalization and Falls; Negative Autoimmune Disease, Shingles, Blood Transfusions, Anesthesia Reactions, MRSA, Human Immunodeficiency Virus (HIV), Measles or Cancer Family History FAMILY HISTORY: Negative Family Psychiatric Problems, Family Respiratory Disorders, Family Cardiac Disorders, Family Gastrointestinal Problems, Family Cancer, Family Surgery or Family Anesthesia Reaction Surgical History SURGICAL: Negative Cardiac Surgery, Endocrine Surgery, Thyroidectomy, Ear Surgery or Abdominal Surgery Social History SMOKING STATUS: Never smoker SECOND HAND EXPOSURE: No SUBSTANCE USE: marijuana Exam Vital Signs Temp Pulse Resp BP Pulse Ox O2 Del Method 100.9 F H 97 18 133/88 H 98 Room Air 10/24/24 22:30 10/24/24 23:25 10/24/24 22:30 10/24/24 22:30 10/24/24 22:30 10/24/24 22:30 Narrative Exam GENERAL: Comfortable adult seen resting comfortably in hospital bed, no acute distress, conversational. HEENT: Normocephalic, atraumatic. Pupils are equal and reactive. Oral mucosa is moist. NECK: Supple, nontender, no JVD CHEST: Symmetrical, atraumatic and with equal expansion ,Nontender on palpation CARDIOVASCULAR: Heart regular rhythm & rate. S1/S2. no murmur or gallop rub or extra beats. LUNGS: Clear to auscultation bilaterally with symmetrical chest rise. No laboring tachypnea or wheezing. No intercostal subcostal retraction. No rales and no rhonchi. ABDOMEN: Soft, flat, nontender to palpation, no guarding or rebound tenderness. Active and normal bowel sounds. SKIN: Warm and dry, no jaundice or rashes noted, foleys catheter in place NEURO: Patient is AO x 3. PSYCHIATRIC: Patient is in normal mood, cooperative, no SI or HI or hallucinations. Results Labs 10/24/24 23:35 10/24/24 23:35 Labs: Short CBC 10/24/24 Range/Units 23:35 WBC 10.4 (3.8-10.6) Thou/mm3 Hgb 12.7 L (13.5-16.0) g/dL Hct 38.5 L (41.0-53.0) % Plt Count 216 (140-440) Thou/mm3 BMP 10/24/24 23:35 Sodium 144 Potassium 3.6 Chloride 113 H Carbon Dioxide 22.5 BUN 26 H Creatinine 1.0 Glucose 117 H Calcium 9.2 Cardiac Enzymes 10/24/24 Range/Units 23:35 Troponin I < 0.020 (0.0-0.045) ng/mL Liver Function 10/24/24 Range/Units 23:35 Total Bilirubin 0.5 (0.3-1.2) mg/dL AST 43 H (0-34) U/L ALT 35 (10-49) U/L Alkaline Phosphatase 138 H (46-116) U/L Albumin 4.0 (3.4-4.8) gm/dL Urine 10/24/24 Range/Units 22:38 Urine Color Yellow (Lt Yel-Yel) Urine Clarity Turbid A (Clear/Hazy) Urine pH 7.0 (5.0-7.0) Ur Specific [place] 1.023 (1.001-1.035) Urine Protein 2+ A (Neg - Trace) Urine Glucose (UA) Negative (Negative) Quality Measures Quality Measures none Advance care planning discussed with:: patient Medications Home Medications and Allergies Home Medications ?Medication ?Instructions ?Recorded ?Confirmed ?Type tamsulosin 0.4 mg capsule 0.4 mg PO QDAY 12/28/20 07/0 11/07 History atorvastatin 10 mg tablet 1 tab PO HS 03/14/22 4 History oxybutynin chloride 5 mg tablet 5 mg PO QDAY 12/10/22 03/15/24 History ascorbic acid (vitamin C) 500 mg 500 mg PO QDAY 03/15/24 History tablet bisacodyl 10 mg rectal suppository 10 mg WI QDAY PRN C onstipation 07/02/23 03/15/24 History (Dulcolax (bisacodyl)) hydrocodone 10 mg-acetaminophen 1 tab PO Q8H PRN Pain (Scale Score 07/02/23 03/15/24 History 325 mg tablet 4-6) ibuprofen 200 mg tablet 200 mg PO Q6H PRN Pain (Scal e 07/02/23 03/15/24 History Score 1-3) sodium phosphates 19 gram-7 118 ml WI QDAY PRN Constip ation 07/02/23 03/15/24 History gram/118 mL enema (Fleet Enema) Allergies Allergy/AdvReac Type Severity Reaction Status Date / Time No Known Allergies Allergy Verified 03/15/24 10:00 Visit Medications Discontinued Medications Sodium Chloride (Ns) 1,776 mls @ 1,776 mls/hr 30 ml/kg infuse over 60 min (1776 ml) IV .Q1H ONE Stop: 10/25/24 00:14 Last Admin: 10/24/24 23:31 Dose: 1,776 mls/hr Ceftriaxone Sodium 1,000 mg/ (Sodium Chloride) 50 mls @ 100 mls/hr IV X1 ONE Stop: 10/24/24 23:44 Last Infusion: 10/25/24 00:01 Dose: Infused Assessment & Plan Plan Assessment and plan: Summary: Mr. Pryor is a 69-year-old male with history of hemiplegia status post CVA, chronically bedbound, hypertension, BPH, hyperlipidemia and peripheral vascular disease who presented to [facility] emergency department on 10/24/2024 with a chief complaint of Arevalo catheter being clogged. Hospitalist team consulted for possible admission for sepsis secondary to UTI. #Urinary tract infection #Dislodged chronic indwelling catheter status post exchange Patient did meet SIRS criteria (HR> 90, Temp > 100.4) on presentation, received fluid resuscitation per sepsis protocol. Patient has mild fever, 100.9, heart rate in 90s, not more than 100. Did improve with fluid resuscitation and IV ceftriaxone. UA significant for positive nitrite, positive leukocyte esterase, WBC 553, squamous epithelial cells 26, bacteria none., Possible contamination of the sample, has high squamous epithelial cells, patient has no suprapubic tenderness on examination, no abdominal discomfort, no costovertebral angle tenderness, denies any urinary discomfort, burning pain, burning sensation, increased frequency. No white cell count on CBC, physical exam benign otherwise. Plan: -Patient's catheter was exchanged in the ED, patient does not meet criteria for inpatient admission, patient's urinary tract infection can be treated outpatient, per review of cultures recommendation is to discharge patient back to facility on Augmentin and follow urine culture and blood culture results outpatient with primary care physician #Neurological deficits status post CVA #Chronically bedbound #Hypertension #Benign prostate hypertrophy #Hyperlipidemia Continue other home medications. Case discussed with Attending Dr. Lubin. Hope Grace PGY1 Disclaimer: This note was dictated by speech recognition. Minor errors in electric blasting cap assembler may be present due to voice recognition software. Attending Provider Attestation/Addendum I have examined the patient, reviewed labs and imaging findings, discussed the case with the resident(s), and reviewed entered orders. I agree with the plan of care as outlined in this note, with these additional summaries/recommendations: Patient is a 69-year-old male with a medical history of CVA, hyperlipidemia, BPH, chronic indwelling Arevalo catheter, and hepatitis C who presented to [facility] emergency department on 10/24/2024 for chief complaint of dislodged Arevalo catheter. Arevalo catheter was exchanged in the emergency room. 1 of 4 SIRS criteria positive with heart rate greater than 90. Patient does have low-grade fever 100.3 that resolved. No leukocytosis present. Procalcitonin within normal limits. No evidence of end organ damage. Urinalysis consistently shows nitrite and leukocyte esterase positive as well as pyuria although no bacteria seen this time. Patient can be discharged home with oral antibiotic and recommend Augmentin. Patient was updated on the plan and in agreement. Please feel free to contact us with any further questions or concerns. Thank you for allowing us to participate in this patient's care. Dr. Lubin
[2024-10-25 01:46] VITALS: BP 133/88; PULSE 68; RESP 18; O2SAT 97
[2024-10-25 02:02] VITALS: BP 106/76; PULSE 74; RESP 18; TEMP 37.2; O2SAT 97
--- NOTE | 2024-10-25 02:43 | PC.NURSE ---
REPORT GIVEN TO DELMY AT [facility]
[2024-10-25 02:44] VITALS: RESP 18
== END 2024-10-25 02:45 | disposition skilled nursing facility (03) ==
LOC: SERX 10-25 02:24
PROVIDERS: Emergency Provider Emergency Medicine; PCP Hospitalist
DX: N39.0 Urinary tract infection, site not specified (principal); T83.021A Displacement of indwelling urethral catheter, initial encounter; E86.0 Dehydration; I69.351 Hemiplegia and hemiparesis following cerebral infarction affecting right dominant side; I73.9 Peripheral vascular disease, unspecified; R56.9 Unspecified convulsions; I10 Essential (primary) hypertension; E78.5 Hyperlipidemia, unspecified; N40.0 Benign prostatic hyperplasia without lower urinary tract symptoms; Z74.01 Bed confinement status; Z79.899 Other long term (current) drug therapy; Y73.2 Prosthetic and other implants, materials and accessory gastroenterology and urology devices associated with adverse incidents; Y92.129 Unspecified place in nursing home as the place of occurrence of the external cause; Y84.6 Urinary catheterization as the cause of abnormal reaction of the patient, or of later complication, without mention of misadventure at the time of the procedure
CPT/HCPCS: 51702; 36415; 71045; 80053; 81001; 83605; 83615; 83690; 83735; 83880; 84100; 84145; 84484; 85025; 85610; 85730; 87040; 87077; 87086; 87186; 93005; 96361; 96365; 99291; J0696; J7030; J7050

== ENCOUNTER 2024-10-30 16:24 | Emergency (ER) | payer MEDICARE, MEDICAID, SELFPAY ==
[2024-10-30 16:27] VITALS: BP 128/78; PULSE 106; RESP 17; TEMP 37.7; O2SAT 95
[2024-10-30 16:29] VITALS: PULSE 95; RESP 18; O2SAT 97; BMI 25.0
--- NOTE | 2024-10-30 16:34 | EDNOTE_ITS ---
ED General RME/HPI General Chief complaint: Nausea/Vomiting/Diarrhea Stated complaint: VOMITING Time Seen by Provider: 10/30/24 16:33 Arrival date/time: 10/30/24 16:24 CC: Nausea vomiting HPI patient presents to the ER via EMS report from [facility] where the patient resides at [facility], the patient started vomiting at 7 AM this morning and continued vomit all day. When asked the patient states that he ate too many peanut butter M&Ms almost a whole bag and that he had done this before. Patient denies any diarrhea. EMS report heart rate of 95, was given 1 round of 4 mg of Zofran with minimal effect. At the time of the exam the patient has no active vomiting. Related Data Home Medications ?Medication ?Instructions ?Recorded ?Confirmed tamsulosin 0.4 mg capsule 0.4 mg PO QDAY 12/28/2011/07 atorvastatin 10 mg tablet 1 tab PO HS 03/14/22 4 oxybutynin chloride 5 mg tablet 5 mg PO QDAY 12/10/22 03/15/24 ascorbic acid (vitamin C) 500 mg 500 mg PO QDAY 03/15/24 tablet bisacodyl 10 mg rectal suppository 10 mg AR QDAY PRN C onstipation 07/02/23 03/15/24 (Dulcolax (bisacodyl)) hydrocodone 10 mg-acetaminophen 1 tab PO Q8H PRN Pain (Scale Score 07/02/23 03/15/24 325 mg tablet 4-6) ibuprofen 200 mg tablet 200 mg PO Q6H PRN Pain (Scal e 07/02/23 03/15/24 Score 1-3) sodium phosphates 19 gram-7 118 ml AR QDAY PRN Constip ation 07/02/23 03/15/24 gram/118 mL enema (Fleet Enema) Previous Rx's ?Medication ?Instructions ?Recorded ciprofloxacin HCl 500 mg tablet 500 mg PO BID #14 tabs 01/03/24 (Cipro) cephalexin 500 mg capsule 500 mg PO QID #28 caps 09/14 doxycycline monohydrate 100 mg 100 mg PO BID Urinary t ract 10/25/24 capsule infection 10 days #20 caps ondansetron 4 mg disintegrating 4 mg PO Q8H #10 tabs 0 10/30/24 tablet Allergies Allergy/AdvReac Type Severity Reaction Status Date / Time No Known Allergies Allergy Verified 03/15/24 10:00 Review of Systems Review of Systems Narrative Review of Systems: GEN: No fever, no chills, no weight loss EYES: No discharge, no visual changes, no pain HEENT: No ear pain, no congestion, no sore throat PULM: No shortness of breath, no cough, no congestion CV: No chest pain, no dyspnea on exertion, no palpitations GI: + nausea, + vomiting, no diarrhea, no pain, no constipation : No frequency, no urgency, no dysuria MUSC/SKEL: No joint pain, no back pain SKIN: No rash PSYCH: No hallucinations, no depression HEME/LYMPH: No easy bleeding or bruising tendencies NEURO: No weakness, no headache Past Medical History Past Medical History NEUROLOGIC: Positive Cerebrovascular Accident; Negative Neurological Disorders or Seizures CARDIAC: Positive Cardiac Disorders, Peripheral Vascular Disease and Hypertension; Negative Congestive Heart Failure RESPIRATORY: Negative Chronic Obstructive Pulmonary Disease (COPD) or Asthma GASTROINTESTINAL: Negative Gastrointestinal Disorders or Hepatitis GENITOURINARY: Positive Genitourinary Disorders, Renal Disease and Benign Prostatic Hyperplasia MUSCULOSKELETAL: Positive Musculoskeletal Disorders; Negative Rheumatoid Arthritis, Gout or Osteomyelitis ENT: Negative Cataracts ENDOCRINE: Negative Diabetes Mellitus Type 1 or Diabetes Mellitus Type 2 HEMATOLOGIC: Negative Blood Disorders or Sickle Cell Disease OTHER HISTORY: Positive Hospitalization and Falls; Negative Autoimmune Disease, Shingles, Blood Transfusions, Anesthesia Reactions, MRSA, Human Immunodeficiency Virus (HIV), Measles or Cancer Family History FAMILY HISTORY: Negative Family Psychiatric Problems, Family Respiratory Disorders, Family Cardiac Disorders, Family Gastrointestinal Problems, Family Cancer, Family Surgery or Family Anesthesia Reaction Surgical History SURGICAL: Negative Cardiac Surgery, Endocrine Surgery, Thyroidectomy, Ear Surgery or Abdominal Surgery Social History SMOKING STATUS: Former smoker SECOND HAND EXPOSURE: No SUBSTANCE USE: marijuana ED Exam Narrative Physical exam: [General: Appears not in any acute distress Head normocephalic HEENT: Within acceptable limits Neck is supple nontender Chest equal chest rise nontender to palpation Respiratory: Clear to auscultation no wheezes crackles or rubs CV: Rate rhythm is regular no murmurs rubs or clicks Abdomen is soft nontender no masses positive bowel sounds all 4 quadrants Back: No CVA tenderness no spinous process tenderness from cervical spine thoracic and lumbar spine Skin: Intact no petechiae rash induration ulceration or crepitus Extremities: 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 He is requesting water and is tolerating it without complication. Quality Measures VTE prophylaxis Orders Category Date Time Status CBC Stat Lab 10/30/24 16:48 Completed CMP [Comprehensive Metabolic Panel] Stat Lab 10/30/24 16:48 Completed Urinalysis Stat Lab 10/30/24 16:34 Completed Vital Signs Vital signs: Vital Signs Temperature 99.9 F 10/30/24 16:27 Pulse Rate 106 H 10/30/24 16:27 Respiratory Rate 17 10/30/24 16:27 Blood Pressure 128/78 10/30/24 16:27 Pulse Oximetry (%) 95 10/30/24 16:27 Oxygen Delivery Method Room Air 10/30/24 16:27 [facility] Patient data External records reviewed:: [facility] previous records and EMS form Clinical information provided by:: patient and EMS Social determinants that could affect healthcare access:: none Patient has the following chronic illnesses:: Hemiaplasia How is presenting disease/condition affected by chronic disease/condition?: c aused by Evaluation data The following diagnostics were reviewed and interpreted by me:: other (specify) Lab and/or radiology exams considered but not ordered:: CBC shows a mild leukocytosis of 12.8 H&H of 12.8 and 39.1 platelets at 169 CMP shows no acute finding requires emergent or immediate intervention urine is positive for WBCs and bacteria but not as significant as prior urines I do not feel urinary tract infection is a source of this as the patient has a longstanding indwelling catheter. Patient will be discharged home with nausea vomiting nausea vomiting Interpretation Summary: Nausea vomiting Medications Medications considered but not ordered:: None Medication administrations:: None Consultations Consultation(s) initiated? (list below): No Diagnosis Differential Diagnosis ED Complaint MDM: Nausea vomiting UTI electrolyte imbalances renal failure Most likely diagnosis given after review of the tests above:: Nausea vomiting Admission Indicated Admission indicated?: not indicated Explain why admission is indicated or not indicated:: Stable for discharge Admission Request Was there a request for admission?: No Disposition Plan Disposition Plan: Discharge Discharge Attestation Discharge Attestation: The patient and all family members were given an opportunity to ask questions and understood the discharge instructions. Discharge instructions specifically effects, indications for sooner follow up or return to the emergency department, and the expected course of current diagnosis. Patient condition: Stable Medical Decision Making Differential Diagnosis Differential Diagnosis: Nausea vomiting UTI electrolyte imbalances renal failure Lab Data 10/30/24 16:48 10/30/24 16:48 Labs: Lab Results 10/30/24 10/30/24 Range/Units 16:34 16:48 WBC 12.8 H (3.8-10.6) Thou/mm3 RBC 4.47 L (4.50-5.90) Miln/mm3 Hgb 12.8 L (13.5-16.0) g/dL Hct 39.1 L (41.0-53.0) % MCV 88 (80-100) fL MCH 28.6 (25.0-35.0) pg MCHC 32.7 (31.0-37.0) g/dl RDW Std Deviation 42.7 (35.1-43.9) fL Plt Count 169 D (140-440) Thou/mm3 Neut % (Auto) 83 H (37-80) % Lymph % (Auto) 12 (10-50) % [place] % (Auto) 5 (0-12) % Eos % (Auto) 0 (0-10) % Baso % (Auto) 0 (0-2.5) % Neut # (Auto) 10.6 H (1.8-7.7) Thou/mm3 Lymph # (Auto) 1.5 (1.0-4.8) Thou/mm3 [place] # (Auto) 0.6 (0.0-0.8) Thou/mm3 Eos # (Auto) 0.0 (0.0-0.5) Thou/mm3 Baso # (Auto) 0.1 (0.0-0.2) Thou/mm3 Immature Gran # (Auto) 0.05 H (0.00-0.00) Thou/mm3 Absolute Nucleated RBC 0.00 (0.00-0.00) Thou/mm3 Immature Gran % 0 (0-0) % Nucleated RBC % 0 (0) /100 WBC Sodium 145 (136-145) mMol/L Potassium 4.0 (3.4-5.1) mMol/L Chloride 110 H (98-107) mMol/L Carbon Dioxide 23.6 (20.0-31.0) mMol/L Anion Gap 11 (7-16) BUN 31 H (9-23) mg/dL Creatinine 0.9 (0.6-1.3) mg/dL Estim Creat Clear Calc 69.9 (>60) mL/min eGFR > 60 (60 - ) See Note BUN/Creatinine Ratio 34 H (12-20) Ratio Glucose 114 H (74-106) mg/dL Calculated Osmolality 296 H (275-295) Calcium 9.0 (8.3-10.6) mg/dL Corrected Calcium 9.1 (8.5-10.1) mg/dL Total Bilirubin 0.5 (0.3-1.2) mg/dL AST 37 H (0-34) U/L ALT 33 (10-49) U/L Alkaline Phosphatase 153 H (46-116) U/L Total Protein 7.1 (5.7-8.2) gm/dL Albumin 3.9 (3.4-4.8) gm/dL Globulin 3.2 (2.3-3.5) gm/dL Albumin/Globulin Ratio 1.2 (1.2-2.2) Ur Collection Type Clean Catch Urine Color Lt-Yellow (Lt Yel-Yel) Urine Clarity Hazy (Clear/Hazy) Urine pH 6.5 (5.0-7.0) Ur Specific [place] 1.030 (1.001-1.035) Urine Protein 1+ A (Neg - Trace) Urine Glucose (UA) Negative (Negative) Urine Ketones 2+ A (Negative) Urine Blood Trace (Negative) Urine Nitrite Negative (Negative) Urine Bilirubin Negative (Negative) Urine Urobilinogen (Auto) Negative (0.0-1.0) mg/dL Ur Leukocyte Esterase Positive (Negative) Urine RBC 12 H (0-3) /hpf Urine WBC 34 H (0-5) /hpf Ur Squamous Epith Cells 9 H (0-5) /hpf Urine Bacteria Rare (None) Discharge Plan Plan Patient Disposition: HOME (Self Care) Patient condition on transfer: Stable Prescriptions/Referrals Prescriptions/Med Rec: New ondansetron 4 mg tablet,disintegrating 4 mg PO Q8H Qty: 10 0RF No Action tamsulosin 0.4 mg Capsule 0.4 mg PO QDAY atorvastatin 10 mg tablet 1 tab PO HS Patient Comments: TAKE 1 TABLET BY MOUTH EVERYDAY AT BEDTIME oxybutynin chloride 5 mg Tablet 5 mg PO QDAY hydrocodone-acetaminophen 10-325 mg Tablet 1 tab PO Q8H PRN (Reason: Pain (Scale Score 4-6)) ascorbic acid (vitamin C) 500 mg Tablet 500 mg PO QDAY bisacodyl [Dulcolax (bisacodyl)] 10 mg Suppository 10 mg AR QDAY PRN (Reason: Constipation) Fleet Enema 19-7 gram/118 mL Enema 118 ml AR QDAY PRN (Reason: Constipation) ibuprofen 200 mg Tablet 200 mg PO Q6H PRN (Reason: Pain (Scale Score 1-3)) ciprofloxacin HCl [Cipro] 500 mg tablet 500 mg PO BID Qty: 14 0RF cephalexin 500 mg capsule 500 mg PO QID Qty: 28 0RF doxycycline monohydrate 100 mg capsule 100 mg PO BID 10 Days Qty: 20 0RF Referrals: No Primary/Family,Physician [Primary Care Provider] - In 1 week Problem List Clinical Impression: Nausea & vomiting Patient/Caregiver Discharge Instructions Education Materials: ED Vomiting and Diarrhea ... Additional Instructions: Avoid the candies that you ate so much of. Always consider eating smaller quantities. Print Language: Malian Stand Alone Forms: [employer] Info., Patient Portal Info Letter, Work/School Release PA/RECREATION SUPERINTENDENT Supervising Physician PA/RECREATION SUPERINTENDENT Supervising Physician: Steven Omalley ENP
[2024-10-30 16:58] VITALS: BP 135/99; PULSE 108; RESP 18; TEMP 37.9; O2SAT 95
[2024-10-30 17:05] LABS: Basophils # (Auto) 0.1 Thou/mm3 (0.0-0.2); Basophils % (Auto) 0 % (0-2.5); Eosinophils % (Auto) 0 % (0-10); Hematocrit 39.1 % (41.0-53.0); Hemoglobin 12.8 g/dL (13.5-16.0); Immature Granulocytes % (Auto) 0 % (0-0); Immature Granulocytes Auto 0.05 Thou/mm3 (0.00-0.00); Lymphocytes # (Auto) 1.5 Thou/mm3 (1.0-4.8); Lymphocytes % (Auto) 12 % (10-50); Mean Corpuscular HGB Conc 32.7 g/dl (31.0-37.0); Mean Corpuscular Hemoglobin 28.6 pg (25.0-35.0); Mean Corpuscular Volume 88 fL (80-100); Monocytes # (Auto) 0.6 Thou/mm3 (0.0-0.8); Monocytes % (Auto) 5 % (0-12); Neutrophils # (Auto) 10.6 Thou/mm3 (1.8-7.7); Neutrophils % (Auto) 83 % (37-80); Nucleated Red Blood Cell % 0 /100 WBC (0); Platelet Count 169 Thou/mm3 (140-440); RDW Standard Deviation 42.7 fL (35.1-43.9); Red Blood Count 4.47 Miln/mm3 (4.50-5.90); White Blood Count 12.8 Thou/mm3 (3.8-10.6)
[2024-10-30 17:23] LABS: Bacteria,Urine Rare; Bilirubin,Urine Negative (Negative); Blood,Urine Trace (Negative); Collection Type, Urine Clean Catch; Color,Urine Lt-Yellow (Lt Yel-Yel); Glucose, Urine Negative (Negative); Ketones,Urine 2+ (Negative); Leukocyte Esterase,Urine Positive (Negative); Nitrite,Urine Negative (Negative); PH,Urine 6.5 (5.0-7.0); Protein,Urine 1+ (Neg - Trace); RBC,Urine 12 /hpf (0-3); Squamous Epithelial Cell,Urine 9 /hpf (0-5); Urobilinogen,Urine Negative mg/dL (0.0-1.0); WBC,Urine 34 /hpf (0-5)
[2024-10-30 17:23] LABS: Alanine Aminotransferase 33 U/L (10-49); Albumin, Serum 3.9 gm/dL (3.4-4.8); Albumin/Globulin Ratio 1.2 (1.2-2.2); Alkaline Phosphatase 153 U/L (46-116); Anion Gap 11 (7-16); Aspartate Amino Transferase 37 U/L (0-34); BUN/Creatinine Ratio 34 Ratio (12-20); Bilirubin,Total 0.5 mg/dL (0.3-1.2); Blood Urea Nitrogen 31 mg/dL (9-23); Calcium (Corrected) 9.1 mg/dL (8.5-10.1); Carbon Dioxide 23.6 mMol/L (20.0-31.0); Chloride 110 mMol/L (98-107); Creatinine (Component) 0.9 mg/dL (0.6-1.3); Estimated Creatinine Clearance 69.9 mL/min (>60); Globulin 3.2 gm/dL (2.3-3.5); Glucose 114 mg/dL (74-106); Osmolality,Calculated 296 (275-295); Sodium 145 mMol/L (136-145); Total Protein 7.1 gm/dL (5.7-8.2); eGFR > 60 See Note
[2024-10-30 17:40] LABS: Clarity,Urine Hazy (Clear/Hazy)
[2024-10-30 19:19] VITALS: BP 145/96; PULSE 93; RESP 18; O2SAT 93
[2024-10-30 20:45] VITALS: RESP 18
== END 2024-10-30 20:47 | disposition home or self-care (01) ==
PROVIDERS: Registered Nurse General Practice; Emergency Provider Emergency Medicine
DX: R11.2 Nausea with vomiting, unspecified (principal); R19.7 Diarrhea, unspecified
CPT/HCPCS: 36415; 80053; 81001; 85025; 99283

== ENCOUNTER 2024-11-20 07:43 | Emergency (ER) | payer MEDICARE, MEDICAID, SELFPAY ==
[2024-11-20 07:53] VITALS: BP 110/69; PULSE 72; PULSE 76; RESP 12; RESP 18; TEMP 37.2; O2SAT 94; O2SAT 96; BMI 30.7
--- NOTE | 2024-11-20 08:19 | PD.EDMALE ---
ED Male Genitalurinary RME/HPI General Chief complaint: Urogenital-Male Stated complaint: CATHETER PROBLEMS Time Seen by Provider: 11/20/24 07:45 Arrival date/time: 11/20/24 07:43 RME / HPI RME / HPI Narrative: DR. ALBRECHT MAIN ED EVALUATION: 69 year old male with past medical history significant for CVA, hyperlipidemia, hypertension, neuropathy, hepatitis C, and seizures presents to the Emergency Department [facility] from [facility] with complaints of Arevalo catheter blockage. Patient had diffuse mild abdominal pain from feeling like his Arevalo catheter is plugged up. Per EMS, patient had an output of 1350 ml yesterday, last time staff emptied it out and now only 750 ml noted in the Arevalo catheter bag. Related Data Home Medications ?Medication ?Instructions ?Recorded ?Confirmed tamsulosin 0.4 mg capsule 0.4 mg PO QDAY 12/28/20 03/15/24 atorvastatin 10 mg tablet 1 tab PO HS 03/14/22 03/15/24 oxybutynin chloride 5 mg tablet 5 mg PO QDAY 12/10/22 03/15/24 ascorbic acid (vitamin C) 500 mg 500 mg PO QDAY 07/02/23 03/15/24 tablet bisacodyl 10 mg rectal suppository 10 mg DE QDAY PRN Constipation 07/02/23 03/15/24 (Dulcolax (bisacodyl)) hydrocodone 10 mg-acetaminophen 1 tab PO Q8H PRN Pain (Scale Score 07/02/23 03/15/24 325 mg tablet 4-6) ibuprofen 200 mg tablet 200 mg PO Q6H PRN Pain (Scale 07/02/23 03/15/24 Score 1-3) sodium phosphates 19 gram-7 118 ml DE QDAY PRN Constipation 07/02/23 03/15/24 gram/118 mL enema (Fleet Enema) Previous Rx's ?Medication ?Instructions ?Recorded ciprofloxacin HCl 500 mg tablet 500 mg PO BID #14 tabs 01/03/24 (Cipro) cephalexin 500 mg capsule 500 mg PO QID #28 caps 09/14/24 ondansetron 4 mg disintegrating 4 mg PO Q8H #10 tabs 10/30/24 tablet cefdinir 300 mg capsule 300 mg PO BID #20 caps 11/20/24 Allergies Allergy/AdvReac Type Severity Reaction Status Date / Time No Known Allergies Allergy Verified 03/15/24 10:00 Review of Systems Review of Systems Systems Reviewed: All systems reviewed, normal except as documented Narrative Review of Systems: GEN: No fever, no chills, no weight loss EYES: No discharge, no visual changes, no pain HEENT: No ear pain, no congestion, no sore throat PULM: No shortness of breath, no cough, no congestion CV: No chest pain, no dyspnea on exertion, no palpitations GI: No nausea, no vomiting, no diarrhea, + diffuse mild abdominal pain (Arevalo catheter plugged see HPI), no constipation : No frequency, no dysuria MUSC/SKEL: No joint pain, no back pain SKIN: No rash PSYCH: No hallucinations, no depression HEME/LYMPH: No easy bleeding or bruising tendencies NEURO: No weakness, no headache Past Medical History Past Medical History NEUROLOGIC: Positive Cerebrovascular Accident; Negative Neurological Disorders or Seizures CARDIAC: Positive Cardiac Disorders, Peripheral Vascular Disease, Hypercholesterolemia and Hypertension; Negative Congestive Heart Failure RESPIRATORY: Negative Chronic Obstructive Pulmonary Disease (COPD) or Asthma GASTROINTESTINAL: Negative Gastrointestinal Disorders or Hepatitis GENITOURINARY: Positive Genitourinary Disorders, Renal Disease and Benign Prostatic Hyperplasia MUSCULOSKELETAL: Positive Musculoskeletal Disorders; Negative Rheumatoid Arthritis, Gout or Osteomyelitis ENT: Negative Cataracts ENDOCRINE: Negative Diabetes Mellitus Type 1 or Diabetes Mellitus Type 2 HEMATOLOGIC: Negative Blood Disorders or Sickle Cell Disease OTHER HISTORY: Positive Hospitalization and Falls Social History SMOKING STATUS: Never smoker SECOND HAND EXPOSURE: No SUBSTANCE USE: marijuana ALCOHOL: Never ED Exam Narrative Physical exam: GENERAL APPEARANCE: alert and oriented x 4, well-developed, well-nourished, no acute distress VITALS: All vitals were reviewed and the pulse ox is 95% on room air, which is normal according to my interpretation. HEENT: Normocephalic, atraumatic; pupils equal, round, reactive to light; EOMI; mucous membranes pink, moist; oropharynx clear NECK: Supple LUNGS: CTABL; no wheezes, no rales, no rhonchi HEART: Regular rate, regular rhythm; normal S1, S2; no murmurs ABDOMEN: non distended; normal BS; soft, no tenderness, no guarding, no rebound; no masses, no organomegaly, no hernia BACK: no CVA tenderness EXTREMITIES: atraumatic; no edema NEUROLOGIC: awake; alert and oriented x4; cranial nerves II-XII grossly intact; no focal sensory or motor deficits PSYCHIATRIC: appropriate mood and affect SKIN: warm, dry, normal color; no rashes Course Quality Measures none Orders Category Date Time Status Arevalo [Urinary Catheter, Remove] ONCE Care 11/20/24 09:36 Completed Arevalo [Urinary Catheter] QS Care 11/20/24 09:37 Active Arevalo to [place] Routine Care 11/20/24 09:36 Ordered UA, C/S IF [Urinalysis, C/S if Indicated] Stat Lab 11/20/24 09:31 Completed Urine Culture Stat Lab 11/20/24 09:31 Received Reevaluation(s) Reevaluation #1: Patient remains clinically stable throughout the emergency department visit. Re-assessment at the time of disposition demonstrates that the patient is in no acute distress. states he is feeling better. Strict return precautions were outlined. Patient was discharged in stable condition. Time: 10:04 Vital Signs Vital signs: Vital Signs Temperature 98.9 F 11/20/24 07:53 Pulse Rate 76 11/20/24 07:53 Respiratory Rate 12 11/20/24 07:53 Blood Pressure 110/69 11/20/24 07:53 Pulse Oximetry (%) 94 L 11/20/24 07:53 Oxygen Delivery Method Room Air 11/20/24 07:53 Urogenital - Male MDM Narrative MDM Narrative:: IDiamond am scribing for and in the presence of Dr. Albrecht. Patient data External records reviewed:: EMS form and [facility] records Clinical information provided by:: patient and EMS Social determinants that could affect healthcare access:: housing ([facility]) Patient has the following chronic illnesses:: CVA, hyperlipidemia, hypertension, neuropathy, hepatitis C, and seizures How is presenting disease/condition affected by chronic disease/condition?: exacerbated by Evaluation data The following diagnostics were reviewed and interpreted by me:: lab results Lab and/or radiology exams considered but not ordered:: none Interpretation Summary: UTI Medications / Prescriptions Medications or Prescriptions considered but not ordered:: none Medication administrations:: none Consultations Consultation(s) initiated? (list below): No Diagnosis Urogenital Male Differential Diagnosis: urinary tract infection, acute retention of urine and other (blocked Arevalo catheter, UTI due to urinary indwelling Arevalo catheter) Most likely diagnosis given after review of the tests above:: Complication, blocked Arevalo catheter UTI due to urinary indwelling Arevalo catheter Admission Indicated Admission indicated?: not indicated Admission Request Was there a request for admission?: No Disposition Plan Disposition Plan: Discharge Discharge Attestation Discharge Attestation: The patient and all family members were given an opportunity to ask questions and understood the discharge instructions. Discharge instructions specifically effects, indications for sooner follow up or return to the emergency department, and the expected course of current diagnosis. Patient condition: Stable Discharge Plan Plan Patient Disposition: HOME (Self Care) Prescriptions/Referrals Prescriptions/Med Rec: New cefdinir 300 mg capsule 300 mg PO BID Qty: 20 0RF No Action tamsulosin 0.4 mg Capsule 0.4 mg PO QDAY atorvastatin 10 mg tablet 1 tab PO HS Patient Comments: TAKE 1 TABLET BY MOUTH EVERYDAY AT BEDTIME oxybutynin chloride 5 mg Tablet 5 mg PO QDAY hydrocodone-acetaminophen 10-325 mg Tablet 1 tab PO Q8H PRN (Reason: Pain (Scale Score 4-6)) ascorbic acid (vitamin C) 500 mg Tablet 500 mg PO QDAY bisacodyl [Dulcolax (bisacodyl)] 10 mg Suppository 10 mg DE QDAY PRN (Reason: Constipation) Fleet Enema 19-7 gram/118 mL Enema 118 ml DE QDAY PRN (Reason: Constipation) ibuprofen 200 mg Tablet 200 mg PO Q6H PRN (Reason: Pain (Scale Score 1-3)) ciprofloxacin HCl [Cipro] 500 mg tablet 500 mg PO BID Qty: 14 0RF ondansetron 4 mg tablet,disintegrating 4 mg PO Q8H Qty: 10 0RF cephalexin 500 mg capsule 500 mg PO QID Qty: 28 0RF Referrals: Thang Zarate MD [Primary Care Provider] - In 1 week Problem List Clinical Impression: Complication, blocked Arevalo catheter, UTI (urinary tract infection) due to urinary indwelling Arevalo catheter Patient/Caregiver Discharge Instructions Education Materials: Catheter-Linked Urinary Tract ... Print Language: Kinyarwanda Stand Alone Forms: [employer] Info., Patient Portal Info Letter
[2024-11-20 09:55] LABS: Collection Type, Urine Catheter; Squamous Epithelial Cell,Urine 0 /hpf (0-5)
[2024-11-20 09:58] VITALS: BP 129/78; PULSE 67; RESP 21; TEMP 36.8; O2SAT 95
[2024-11-20 10:10] LABS: Amorphous Crystals,Urine Present (Absent); Bacteria,Urine 4+; Bilirubin,Urine Negative (Negative); Blood,Urine 1+ (Negative); Color,Urine Orange (Lt Yel-Yel); Glucose, Urine Negative (Negative); Ketones,Urine Negative (Negative); Leukocyte Esterase,Urine Positive (Negative); Nitrite,Urine Positive (Negative); Protein,Urine 2+ (Neg - Trace); RBC,Urine 38 /hpf (0-3); Specific Gravity,Urine 1.016 (1.001-1.035); Urobilinogen,Urine Negative mg/dL (0.0-1.0); WBC,Urine 1135 /hpf (0-5)
[2024-11-20 10:26] LABS: Clarity,Urine Turbid (Clear/Hazy); Culture Indicated,Urine Yes
--- NOTE | 2024-11-20 10:55 | PC.NURSE ---
SPOKE TO PAIGE SAUCEDO FROM [facility] FOR SBAR REPORT; PAIGE SAUCEDO INFORMED THAT [facility] ED [employer]ER TO SET UP TRANSPORTATION FOR PT BACK TO [facility].
--- NOTE | 2024-11-20 11:00 | PC.CC ---
ASWElisa was consulted by facing baster Kathy for transportation back to [facility]. ASW attempted to make multiple calls for [facility] with no response. ASW obtained an GINA from transfer RN Casimiro. ASW arranged transportation with [facility] back to [facility].
[2024-11-20 11:02] VITALS: BP 129/72; PULSE 67; RESP 19; TEMP 36.8; O2SAT 97
[2024-11-20 12:35] VITALS: BP 125/76; PULSE 68; RESP 12; TEMP 36.7; O2SAT 96
[2024-11-20 13:17] VITALS: BP 118/77; PULSE 52; RESP 13; TEMP 36.6; O2SAT 96
== END 2024-11-20 13:38 | disposition home or self-care (01) ==
PROVIDERS: Emergency Provider Emergency Medicine; PCP Hospitalist
DX: T83.511A Infection and inflammatory reaction due to indwelling urethral catheter, initial encounter (principal); E78.5 Hyperlipidemia, unspecified; I10 Essential (primary) hypertension
CPT/HCPCS: 51702; 81001; 87077; 87086; 87186; 99283

== ENCOUNTER 2025-01-15 10:44 | Emergency (ER) | payer MEDICARE, MEDICAID, SELFPAY ==
[2025-01-15 10:55] VITALS: PULSE 64; RESP 18; O2SAT 97; BMI 24.0
--- NOTE | 2025-01-15 11:01 | PC.NURSE ---
BIBA due f/c leaking, supra pubic catheter dislodged yesterday at [facility]. Patient is A&O X4 denies pain at this time. Patient has appointment with his urologist tomorrow per patient and EMS. HERON Omalley at bedside assessing patient at this time.
[2025-01-15 11:05] VITALS: BP 112/66; PULSE 58; RESP 18; TEMP 37.1; O2SAT 95
--- NOTE | 2025-01-15 11:08 | PD.EDADULT ---
ED General RME/HPI General Chief complaint: Urogenital-Male Stated complaint: CATHETER PROBLEMS Time Seen by Provider: 01/15/25 11:01 Arrival date/time: 01/15/25 10:44 CC: Suprapubic catheter dislodged, leaking Arevalo catheter HPI patient presents to the ER via EMS who reports stable vital signs with the 2 complaints listed. 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 Patient is awake alert oriented nontoxic-appearing not in any acute distress. He is deconditioned, but clean. Related Data Home Medications ?Medication ?Instructions ?Recorded ?Confirmed tamsulosin 0.4 mg capsule 0.4 mg PO QDAY 12/28/20 03/15/24 atorvastatin 10 mg tablet 1 tab PO HS 03/14/22 03/15/24 oxybutynin chloride 5 mg tablet 5 mg PO QDAY 12/10/22 03/15/24 ascorbic acid (vitamin C) 500 mg 500 mg PO QDAY 07/02/23 03/15/24 tablet bisacodyl 10 mg rectal suppository 10 mg [place] QDAY PRN Constipation 07/02/23 03/15/24 (Dulcolax (bisacodyl)) hydrocodone 10 mg-acetaminophen 1 tab PO Q8H PRN Pain (Scale Score 07/02/23 03/15/24 325 mg tablet 4-6) ibuprofen 200 mg tablet 200 mg PO Q6H PRN Pain (Scale 07/02/23 03/15/24 Score 1-3) sodium phosphates 19 gram-7 118 ml AK QDAY PRN Constipation 07/02/23 03/15/24 gram/118 mL enema (Fleet Enema) Previous Rx's ?Medication ?Instructions ?Recorded ciprofloxacin HCl 500 mg tablet 500 mg PO BID #14 tabs 01/03/24 (Cipro) cephalexin 500 mg capsule 500 mg PO QID #28 caps 09/14/24 ondansetron 4 mg disintegrating 4 mg PO Q8H #10 tabs 10/30/24 tablet cefdinir 300 mg capsule 300 mg PO BID #20 caps 11/20/24 ciprofloxacin HCl 500 mg tablet 500 mg PO BID #14 tabs 05/04/25 (Cipro) Allergies Allergy/AdvReac Type Severity Reaction Status Date / Time No Known Allergies Allergy Verified 03/15/24 10:00 Review of Systems Review of Systems Narrative Review of Systems: GEN: No fever, no chills, no weight loss EYES: No discharge, no visual changes, no pain HEENT: No ear pain, no congestion, no sore throat PULM: No shortness of breath, no cough, no congestion CV: No chest pain, no dyspnea on exertion, no palpitations GI: No nausea, no vomiting, no diarrhea, no pain, no constipation : No frequency, no urgency, no dysuria MUSC/SKEL: No joint pain, no back pain SKIN: No rash PSYCH: No hallucinations, no depression HEME/LYMPH: No easy bleeding or bruising tendencies NEURO: No weakness, no headache Past Medical History Past Medical History NEUROLOGIC: Positive Cerebrovascular Accident; Negative Neurological Disorders or Seizures CARDIAC: Positive Cardiac Disorders, Peripheral Vascular Disease, Hypercholesterolemia and Hypertension; Negative Congestive Heart Failure RESPIRATORY: Negative Chronic Obstructive Pulmonary Disease (COPD) or Asthma GASTROINTESTINAL: Negative Gastrointestinal Disorders or Hepatitis GENITOURINARY: Positive Genitourinary Disorders, Renal Disease and Benign Prostatic Hyperplasia MUSCULOSKELETAL: Positive Musculoskeletal Disorders; Negative Rheumatoid Arthritis, Gout or Osteomyelitis ENT: Negative Cataracts ENDOCRINE: Negative Diabetes Mellitus Type 1 or Diabetes Mellitus Type 2 HEMATOLOGIC: Negative Blood Disorders or Sickle Cell Disease OTHER HISTORY: Positive Hospitalization and Falls; Negative Autoimmune Disease, Shingles, Blood Transfusions, Anesthesia Reactions, MRSA, Human Immunodeficiency Virus (HIV), Measles or Cancer Family History FAMILY HISTORY: Negative Family Psychiatric Problems, Family Respiratory Disorders, Family Cardiac Disorders, Family Gastrointestinal Problems, Family Cancer, Family Surgery or Family Anesthesia Reaction Surgical History SURGICAL: Negative Cardiac Surgery, Endocrine Surgery, Thyroidectomy, Ear Surgery or Abdominal Surgery Social History SMOKING STATUS: Never smoker SECOND HAND EXPOSURE: No SUBSTANCE USE: marijuana ED Exam Narrative Physical exam: [General: Appears not in any acute distress Head normocephalic HEENT: Within acceptable limits Neck is supple nontender Chest equal chest rise nontender to palpation Respiratory: Clear to auscultation no wheezes crackles or rubs CV: Rate rhythm is regular no murmurs rubs or clicks Abdomen is soft, nontender, low center suprapubic catheter site stoma is closed, sutures are still protruding from the skin. No surrounding erythema or edema. No oozing of exudate urine or bleeding. : Penis: The posterior region of the penis is completely open as the ureter has been eroded open clear down to the base of the penis. Patient now has a stoma at the base of the penis there is no surrounding erythema edema, the posterior surface of this penis is nonerythematous nonedematous. Scrotum is normal in appearance testes are distended. Back: No CVA tenderness no spinous process tenderness from cervical spine thoracic and lumbar spine Skin: See ostomy site description above. Otherwise skin is intact no petechiae rash induration ulceration or crepitus Extremities: Lower extremities and the right upper extremity contracted and deconditioned. Cap refill in the digits less than 2 seconds gross motor movement of the left upper extremity. Neuro: Awake alert oriented x2, person and place, Glascow coma 15 no focal deficits] Course Quality Measures none Orders Category Date Time Status CBC Stat Lab 01/15/25 12:14 Completed CMP [Comprehensive Metabolic Panel] Stat Lab 01/15/25 12:14 Completed Urinalysis, C/S if Indicated Stat Lab 01/15/25 11:40 Completed Urine Culture Stat Lab 01/15/25 11:40 Received 400 mg IV @ 200 MLS/HR(200ml) Med 01/15/25 13:49 Ordered CIPROFLOXACIN/D5w 400 MG IVPB [Cipro Ivpb] 400 mg in 200 ml IV X1 cefTRIAXone/D5w 1gm IV premix [Rocephin/D5w 1gm IV Med 01/15/25 13:47 Discontinued premix] 50 ml IV X1 Vital Signs Vital signs: Vital Signs Temperature 98.7 F 01/15/25 11:05 Pulse Rate 58 L 01/15/25 11:05 Respiratory Rate 18 01/15/25 11:05 Blood Pressure 112/66 01/15/25 11:05 Pulse Oximetry (%) 95 01/15/25 11:05 Oxygen Delivery Method Room Air 01/15/25 11:05 Procedures -ED Procedure Comment The Arevalo replacement, the Arevalo last placed a #18 [place] was promptly removed, immediately an 18 was reinserted without complication. Cloudy foul-smelling urine was immediately drained. Patient tolerated the procedure well. Discharge Plan Plan Patient Disposition: HOME (Self Care) Patient condition on transfer: Stable Prescriptions/Referrals Prescriptions/Med Rec: New ciprofloxacin HCl [Cipro] 500 mg tablet 500 mg PO BID Qty: 14 0RF No Action tamsulosin 0.4 mg Capsule 0.4 mg PO QDAY atorvastatin 10 mg tablet 1 tab PO HS Patient Comments: TAKE 1 TABLET BY MOUTH EVERYDAY AT BEDTIME oxybutynin chloride 5 mg Tablet 5 mg PO QDAY hydrocodone-acetaminophen 10-325 mg Tablet 1 tab PO Q8H PRN (Reason: Pain (Scale Score 4-6)) ascorbic acid (vitamin C) 500 mg Tablet 500 mg PO QDAY bisacodyl [Dulcolax (bisacodyl)] 10 mg Suppository 10 mg AK QDAY PRN (Reason: Constipation) Fleet Enema 19-7 gram/118 mL Enema 118 ml AK QDAY PRN (Reason: Constipation) ibuprofen 200 mg Tablet 200 mg PO Q6H PRN (Reason: Pain (Scale Score 1-3)) ciprofloxacin HCl [Cipro] 500 mg tablet 500 mg PO BID Qty: 14 0RF ondansetron 4 mg tablet,disintegrating 4 mg PO Q8H Qty: 10 0RF cephalexin 500 mg capsule 500 mg PO QID Qty: 28 0RF cefdinir 300 mg capsule 300 mg PO BID Qty: 20 0RF Referrals: No Primary/Family,Physician [Primary Care Provider] - In 1 week Problem List Clinical Impression: UTI (urinary tract infection) Patient/Caregiver Discharge Instructions Education Materials: ED Bladder Infection, Male (Adult) Additional Instructions: Take the medications as prescribed. Watch the suprapubic catheter stoma for infection. Follow-up with urology if there is worsening of symptoms return the emergency room immediately for further evaluation. Print Language: Belgian Stand Alone Forms: [employer] Award Info., Patient Portal Info Letter PA/REIMBURSEMENT COUNSELOR Supervising Physician PA/REIMBURSEMENT COUNSELOR Supervising Physician: Steven Omalley ENP [facility] Clinical Information Provided by: patient and EMS Medical Records reviewed [facility] and EMS Medical Records additional comments: Review the medical record show the patient had a blocked Arevalo catheter and was replaced on 11/20/2024. At that time the patient voided 1300 cc urine was positive for UTI and the patient was discharged home. There is no record of the suprapubic catheter I am not sure where this was placed. When asked the patient states he was either in [place] or [place]. Labs Lab(s) Interpretation(s): CBC shows no leukocytosis and anemia of 11.1 and 35.2 respectively for hemoglobin and hematocrit. CMP shows no significant electrolyte imbalances renal impairment transaminitis or T. bili elevation Urine is turbid 3+ blood positive leukocyte Estrace WBCs at 1438 3+ bacteria. Imaging Imaging Interpretation(s): No imaging review of the microbiology shows that the urine last time was positive for Pseudomonas, patient started on Cipro which it is susceptible to. Medication Administration(s) Medication Administration History Discontinued Medications Ceftriaxone Sodium/Dextrose (Rocephin/D5w 1gm Iv Premix) 50 mls @ 100 mls/hr IV X1 ONE Stop: 01/15/25 14:16
[2025-01-15 12:23] LABS: Collection Type, Urine Catheter; Squamous Epithelial Cell,Urine 0 /hpf (0-5)
[2025-01-15 12:41] LABS: Basophils % (Auto) 1 % (0-2.5); Eosinophils # (Auto) 0.4 Thou/mm3 (0.0-0.5); Eosinophils % (Auto) 6 % (0-10); Hematocrit 35.2 % (41.0-53.0); Hemoglobin 11.1 g/dL (13.5-16.0); Immature Granulocytes % (Auto) 0 % (0-0); Immature Granulocytes Auto 0.02 Thou/mm3 (0.00-0.00); Lymphocytes # (Auto) 1.9 Thou/mm3 (1.0-4.8); Lymphocytes % (Auto) 30 % (10-50); Mean Corpuscular HGB Conc 31.5 g/dl (31.0-37.0); Mean Corpuscular Hemoglobin 27.1 pg (25.0-35.0); Mean Corpuscular Volume 86 fL (80-100); Monocytes # (Auto) 0.5 Thou/mm3 (0.0-0.8); Monocytes % (Auto) 8 % (0-12); Neutrophils # (Auto) 3.5 Thou/mm3 (1.8-7.7); Neutrophils % (Auto) 55 % (37-80); Nucleated Red Blood Cell % 0 /100 WBC (0); Platelet Count 220 Thou/mm3 (140-440); RDW Standard Deviation 44.4 fL (35.1-43.9); Red Blood Count 4.09 Miln/mm3 (4.50-5.90); White Blood Count 6.4 Thou/mm3 (3.8-10.6)
[2025-01-15 12:42] LABS: Alanine Aminotransferase 28 U/L (10-49); Albumin, Serum 3.5 gm/dL (3.4-4.8); Albumin/Globulin Ratio 1.3 (1.2-2.2); Alkaline Phosphatase 146 U/L (46-116); Anion Gap 9 (7-16); Aspartate Amino Transferase 40 U/L (0-34); BUN/Creatinine Ratio 21 Ratio (12-20); Bilirubin,Total 0.3 mg/dL (0.3-1.2); Blood Urea Nitrogen 17 mg/dL (9-23); Calcium 8.1 mg/dL (8.3-10.6); Calcium (Corrected) 8.5 mg/dL (8.5-10.1); Carbon Dioxide 23.6 mMol/L (20.0-31.0); Chloride 112 mMol/L (98-107); Creatinine (Component) 0.8 mg/dL (0.6-1.3); Globulin 2.7 gm/dL (2.3-3.5); Glucose 104 mg/dL (74-106); Osmolality,Calculated 290 (275-295); Potassium 3.5 mMol/L (3.4-5.1); Sodium 145 mMol/L (136-145); Total Protein 6.2 gm/dL (5.7-8.2); eGFR > 60 See Note
[2025-01-15 13:02] LABS: Bacteria,Urine 3+; Bilirubin,Urine Negative (Negative); Blood,Urine 3+ (Negative); Glucose, Urine Negative (Negative); Ketones,Urine Negative (Negative); Leukocyte Esterase,Urine Positive (Negative); Nitrite,Urine Negative (Negative); Protein,Urine 2+ (Neg - Trace); RBC,Urine 595 /hpf (0-3); Specific Gravity,Urine 1.013 (1.001-1.035); Urobilinogen,Urine Negative mg/dL (0.0-1.0); WBC,Urine 1438 /hpf (0-5)
[2025-01-15 13:20] LABS: Clarity,Urine Turbid (Clear/Hazy); Color,Urine Yellow (Lt Yel-Yel); Culture Indicated,Urine Yes
[2025-01-15 15:06] VITALS: BP 120/66; PULSE 50; RESP 18; TEMP 36.9; O2SAT 96
[2025-01-15] MEDS: CIPROFLOXACIN HCL 250 MG TABLET 500 MG PO (16:01)
--- NOTE | 2025-01-15 17:30 | PC.CC ---
[employer] coordinated transport for Pt. GINA was received by Juventino Mathew. Real confirmation of ETA for 1914.
[2025-01-15 18:00] VITALS: BP 120/74; PULSE 57; RESP 18; TEMP 36.7; O2SAT 97
[2025-01-15 18:40] VITALS: BP 123/79; PULSE 54; RESP 16; TEMP 37.1; O2SAT 95
== END 2025-01-15 18:44 | disposition home or self-care (01) ==
PROVIDERS: Registered Nurse General Practice; Emergency Provider Emergency Medicine
DX: N39.0 Urinary tract infection, site not specified (principal); I69.359 Hemiplegia and hemiparesis following cerebral infarction affecting unspecified side
CPT/HCPCS: 51702; 36415; 80053; 81001; 85025; 87077; 87086; 87186; 99283; A9270

== ENCOUNTER 2025-01-25 21:29 | Emergency (ER) | payer MEDICARE, MEDICAID, SELFPAY ==
[2025-01-25 21:39] VITALS: BP 116/74; PULSE 61; RESP 18; TEMP 36.8; O2SAT 98
--- NOTE | 2025-01-25 21:44 | PD.EDMALE ---
ED Male Genitalurinary RME/HPI General Chief complaint: General Adult/Misc Complain Stated complaint: GARAY ISSUES Time Seen by Provider: 01/25/25 21:41 Arrival date/time: 01/25/25 21:29 RME / HPI RME / HPI Narrative: The patient is a 69-year-old male with significant past medical history of hemiplegia s/p CVA, hypertension, BPH, hyperlipidemia and peripheral vascular disease presented to ED on 01/25/2025 after being clogged Garay catheter. EMS also reported that in his facility, he was unable to pass urine via Garay catheter, but there was a leak beside Garay catheter. Patient reported doing well, and denied any complaints. He denied any headache, lightheadedness, sore throat, chest pain abdominal pain, any changes in bowel habit or leg swelling. He denied any fever, chills, nausea or vomiting. Related Data Home Medications ?Medication ?Instructions ?Recorded ?Confirmed tamsulosin 0.4 mg capsule 0.4 mg PO QDAY 12/28/20 03/15/24 atorvastatin 10 mg tablet 1 tab PO HS 03/14/22 03/15/24 oxybutynin chloride 5 mg tablet 5 mg PO QDAY 12/10/22 03/15/24 ascorbic acid (vitamin C) 500 mg 500 mg PO QDAY 07/02/23 03/15/24 tablet bisacodyl 10 mg rectal suppository 10 mg [place] QDAY PRN Constipation 07/02/23 03/15/24 (Dulcolax (bisacodyl)) hydrocodone 10 mg-acetaminophen 1 tab PO Q8H PRN Pain (Scale Score 07/02/23 03/15/24 325 mg tablet 4-6) ibuprofen 200 mg tablet 200 mg PO Q6H PRN Pain (Scale 07/02/23 03/15/24 Score 1-3) sodium phosphates 19 gram-7 118 ml [place] QDAY PRN Constipation 07/02/23 03/15/24 gram/118 mL enema (Fleet Enema) Previous Rx's ?Medication ?Instructions ?Recorded ciprofloxacin HCl 500 mg tablet 500 mg PO BID #14 tabs 01/03/24 (Cipro) cephalexin 500 mg capsule 500 mg PO QID #28 caps 09/14/24 ondansetron 4 mg disintegrating 4 mg PO Q8H #10 tabs 10/30/24 tablet cefdinir 300 mg capsule 300 mg PO BID #20 caps 11/20/24 ciprofloxacin HCl 500 mg tablet 500 mg PO BID #14 tabs 01/15/25 (Cipro) Allergies Allergy/AdvReac Type Severity Reaction Status Date / Time No Known Allergies Allergy Verified 03/15/24 10:00 Review of Systems Review of Systems Systems Reviewed: All systems reviewed, normal except as documented Past Medical History Past Medical History NEUROLOGIC: Positive Cerebrovascular Accident; Negative Neurological Disorders or Seizures CARDIAC: Positive Cardiac Disorders, Peripheral Vascular Disease, Hypercholesterolemia and Hypertension; Negative Congestive Heart Failure RESPIRATORY: Negative Chronic Obstructive Pulmonary Disease (COPD) or Asthma GASTROINTESTINAL: Negative Gastrointestinal Disorders or Hepatitis GENITOURINARY: Positive Genitourinary Disorders, Renal Disease and Benign Prostatic Hyperplasia MUSCULOSKELETAL: Positive Musculoskeletal Disorders; Negative Rheumatoid Arthritis, Gout or Osteomyelitis ENT: Negative Cataracts ENDOCRINE: Negative Diabetes Mellitus Type 1 or Diabetes Mellitus Type 2 HEMATOLOGIC: Negative Blood Disorders or Sickle Cell Disease OTHER HISTORY: Positive Hospitalization and Falls; Negative Autoimmune Disease, Shingles, Blood Transfusions, Anesthesia Reactions, MRSA, Human Immunodeficiency Virus (HIV), Measles or Cancer Family History FAMILY HISTORY: Negative Family Psychiatric Problems, Family Respiratory Disorders, Family Cardiac Disorders, Family Gastrointestinal Problems, Family Cancer, Family Surgery or Family Anesthesia Reaction Surgical History SURGICAL: Negative Cardiac Surgery, Endocrine Surgery, Thyroidectomy, Ear Surgery or Abdominal Surgery Social History SMOKING STATUS: Never smoker SECOND HAND EXPOSURE: No SUBSTANCE USE: marijuana ED Exam Narrative Physical exam: General: No acute distress, Alert and Oriented x 3 HEENT: Moist mucous membranes, oropharynx clear Neck: Supple, No masses, No JVD CVS: S1S2 Regular rate and rhythm, No murmurs, rubs or gallops Lungs: Clear to auscultation with no accessory use, no wheeze no rhonchi Abd: Soft, mildly distended and tender over lower quadrant, +BS, no organomegaly Ext: No edema, warm and well perfused Skin: No rash Psych: Appropriate mood and affect Course Quality Measures none Orders Category Date Time Status Bladder Scan NEEDED Care 01/25/25 21:43 Active Garay [Urinary Catheter, Remove] ONCE Care 01/25/25 22:24 Completed Garay [Urinary Catheter] QS Care 01/25/25 22:25 Active US bladder Stat Exams 01/25/25 21:51 Completed CBC Stat Lab 01/25/25 21:59 Completed CMP [Comprehensive Metabolic Panel] Stat Lab 01/25/25 21:59 Completed CRP [C-Reactive Protein] Stat Lab 01/25/25 21:59 Completed ESR [Sed Rate (ESR)] Stat Lab 01/25/25 21:59 Completed Procalcitonin Stat Lab 01/25/25 21:59 Completed UA [Urinalysis] Stat Lab 01/25/25 22:38 Completed Vital Signs Vital signs: Vital Signs Temperature 98.2 F 01/25/25 21:39 Pulse Rate 61 01/25/25 21:39 Respiratory Rate 18 01/25/25 21:39 Blood Pressure 116/74 01/25/25 21:39 Pulse Oximetry (%) 98 01/25/25 21:39 Urogenital - Male MDM Narrative MDM Narrative:: The patient is a 69-year-old male with significant past medical history of hemiplegia s/p CVA, hypertension, BPH, hyperlipidemia and peripheral vascular disease presented to ED on 01/25/2025 after being clogged Garay catheter. EMS also reported that in his facility, he was unable to pass urine via Garay catheter, but there was a leak beside Garay catheter. However, patient denied any urinary frequency, urgency or pain with patient reported doing well, and denied any complaints. He denied any headache, lightheadedness, sore throat, chest pain abdominal pain, any changes in bowel habit or leg swelling. He denied any fever, chills, nausea or vomiting. His vitals BP 116/74, temperature 98.2, pulse 61, RR 18, saturating 98% on room air. Labs revealed white count 7.3, hemoglobin 11.7, ESR 33, chemistry panel revealed chloride 110, AST 45 ALT 188, Pro-Scout 0.06. US bladder revealed marked prostate to megaly with prostate size 8.1 x 6.0 x 6.9 cm with irregular counter. UA revealed turbid urine, RBCs 63, WBC 242 with no bacteria. Patient's Garay catheter was removed and was found to have clogged with crystals; and placed a new Garay catheter. Patient data External records reviewed:: [facility] previous records Clinical information provided by:: patient and EMS Social determinants that could affect healthcare access:: none Patient has the following chronic illnesses:: See above How is presenting disease/condition affected by chronic disease/condition?: caused by Evaluation data The following diagnostics were reviewed and interpreted by me:: lab results and radiology exam(s) Lab and/or radiology exams considered but not ordered:: None Interpretation Summary: See above Medications / Prescriptions Medications or Prescriptions considered but not ordered:: None Medication administrations:: None Consultations Consultation(s) initiated? (list below): No Diagnosis Urogenital Male Differential Diagnosis: urinary tract infection, urethritis, prostatitis and acute retention of urine Most likely diagnosis given after review of the tests above:: Urinary retention 2/2 clogged Garay catheter Admission Indicated Admission indicated?: not indicated Admission Request Was there a request for admission?: No Disposition Plan Disposition Plan: Discharge Discharge Attestation Discharge Attestation: The patient and all family members were given an opportunity to ask questions and understood the discharge instructions. Discharge instructions specifically effects, indications for sooner follow up or return to the emergency department, and the expected course of current diagnosis. Patient condition: Stable Discharge Plan Plan Patient Disposition: Xfer Skilled Nsg Fac (SNF) Prescriptions/Referrals Prescriptions/Med Rec: No Action tamsulosin 0.4 mg Capsule 0.4 mg PO QDAY atorvastatin 10 mg tablet 1 tab PO HS Patient Comments: TAKE 1 TABLET BY MOUTH EVERYDAY AT BEDTIME oxybutynin chloride 5 mg Tablet 5 mg PO QDAY hydrocodone-acetaminophen 10-325 mg Tablet 1 tab PO Q8H PRN (Reason: Pain (Scale Score 4-6)) ascorbic acid (vitamin C) 500 mg Tablet 500 mg PO QDAY bisacodyl [Dulcolax (bisacodyl)] 10 mg Suppository 10 mg [place] QDAY PRN (Reason: Constipation) Fleet Enema 19-7 gram/118 mL Enema 118 ml [place] QDAY PRN (Reason: Constipation) ibuprofen 200 mg Tablet 200 mg PO Q6H PRN (Reason: Pain (Scale Score 1-3)) ciprofloxacin HCl [Cipro] 500 mg tablet 500 mg PO BID Qty: 14 0RF ondansetron 4 mg tablet,disintegrating 4 mg PO Q8H Qty: 10 0RF ciprofloxacin HCl [Cipro] 500 mg tablet 500 mg PO BID Qty: 14 0RF cephalexin 500 mg capsule 500 mg PO QID Qty: 28 0RF cefdinir 300 mg capsule 300 mg PO BID Qty: 20 0RF Referrals: No Primary/Family,Physician [Primary Care Provider] - In 1 week Problem List Clinical Impression: Chronic indwelling Garay catheter, Obstruction of urinary catheter Patient/Caregiver Discharge Instructions Discharge Activity: activity as tolerated Education Materials: ED Garay Catheter, Care Additional Instructions: You were discharged to your facility by Dr. Ferguson with following recommendations: Please follow-up with your PCP within 1 week of discharge Your Garay catheter was replaced by new Garay catheter -Recommended to get biweekly flushing of Garay catheter with normal saline. Continue taking all other medicines as prescribed -Recommended to return back to emergency department if your symptoms persists or worsens Print Language: [place] Island[place] Stand Alone Forms: [employer] Info., Patient Portal Info Letter
--- NOTE | 2025-01-25 21:51 | XR_ITS ---
Examination: Urinary bladder sonography TECHNIQUE: [place] scale sonographic images urinary bladder. Examination time: January 25, 2025 10:44 PM INDICATIONS: Urinary obstruction this week difficulty inserting urinary Arevalo catheter FINDINGS: Prostate 8.1 x 6.0 x 6.9 cm with irregular contour Prostate is indenting urinary bladder versus mass in the base of the bladder 4.6 x 2.8 cm IMPRESSION: Marked prostatomegaly Recommend CT scan abdomen and pelvis including delayed bladder images post intravenous contrast to exclude bladder mass
[2025-01-25 22:10] LABS: Basophils # (Auto) 0.1 Thou/mm3 (0.0-0.2); Basophils % (Auto) 1 % (0-2.5); Eosinophils # (Auto) 0.5 Thou/mm3 (0.0-0.5); Eosinophils % (Auto) 7 % (0-10); Hematocrit 36.5 % (41.0-53.0); Hemoglobin 11.7 g/dL (13.5-16.0); Immature Granulocytes % (Auto) 0 % (0-0); Immature Granulocytes Auto 0.02 Thou/mm3 (0.00-0.00); Lymphocytes # (Auto) 2.8 Thou/mm3 (1.0-4.8); Lymphocytes % (Auto) 39 % (10-50); Mean Corpuscular HGB Conc 32.1 g/dl (31.0-37.0); Mean Corpuscular Hemoglobin 27.5 pg (25.0-35.0); Mean Corpuscular Volume 86 fL (80-100); Monocytes # (Auto) 0.5 Thou/mm3 (0.0-0.8); Monocytes % (Auto) 6 % (0-12); Neutrophils # (Auto) 3.5 Thou/mm3 (1.8-7.7); Neutrophils % (Auto) 47 % (37-80); Nucleated Red Blood Cell % 0 /100 WBC (0); Platelet Count 218 Thou/mm3 (140-440); RDW Standard Deviation 44.8 fL (35.1-43.9); Red Blood Count 4.26 Miln/mm3 (4.50-5.90); White Blood Count 7.3 Thou/mm3 (3.8-10.6)
[2025-01-25 22:27] LABS: Sed Rate (ESR) 33 mm/hr (0-20)
[2025-01-25 22:31] LABS: Alanine Aminotransferase 39 U/L (10-49); Albumin, Serum 3.5 gm/dL (3.4-4.8); Albumin/Globulin Ratio 1.2 (1.2-2.2); Alkaline Phosphatase 188 U/L (46-116); Anion Gap 8 (7-16); Aspartate Amino Transferase 45 U/L (0-34); BUN/Creatinine Ratio 16 Ratio (12-20); Bilirubin,Total 0.3 mg/dL (0.3-1.2); Blood Urea Nitrogen 16 mg/dL (9-23); C-Reactive Protein 0.5 mg/dL (0.0-0.9); Calcium 8.5 mg/dL (8.3-10.6); Calcium (Corrected) 8.9 mg/dL (8.5-10.1); Carbon Dioxide 25.2 mMol/L (20.0-31.0); Chloride 110 mMol/L (98-107); Glucose 103 mg/dL (74-106); Osmolality,Calculated 286 (275-295); Potassium 3.9 mMol/L (3.4-5.1); Procalcitonin 0.06 ng/ml (0.0-0.49); Sodium 143 mMol/L (136-145); Total Protein 6.5 gm/dL (5.7-8.2); eGFR > 60 See Note
[2025-01-25 22:40] VITALS: BP 136/86; PULSE 68; RESP 18; O2SAT 97
[2025-01-25 22:53] VITALS: PULSE 76; RESP 18; O2SAT 97
[2025-01-25 23:00] VITALS: BP 108/76; PULSE 67; RESP 16; O2SAT 97
[2025-01-25 23:14] LABS: Collection Type, Urine Catheter
[2025-01-25 23:49] LABS: Bilirubin,Urine Negative (Negative); Blood,Urine 3+ (Negative); Clarity,Urine Turbid (Clear/Hazy); Color,Urine Yellow (Lt Yel-Yel); Glucose, Urine Negative (Negative); Ketones,Urine Negative (Negative); Leukocyte Esterase,Urine Positive (Negative); Nitrite,Urine Negative (Negative); PH,Urine 6.5 (5.0-7.0); Protein,Urine Trace (Neg - Trace); RBC,Urine 63 /hpf (0-3); Squamous Epithelial Cell,Urine 1 /hpf (0-5); Urobilinogen,Urine Negative mg/dL (0.0-1.0); WBC,Urine 242 /hpf (0-5)
[2025-01-26 00:01] VITALS: BP 125/94; PULSE 70; RESP 16; O2SAT 96
--- NOTE | 2025-01-26 00:36 | PC.NURSE ---
GARAY CATH IS PATENT. URINE OUTPUT 400CC
[2025-01-26 01:00] VITALS: BP 121/89; O2SAT 84
[2025-01-26 01:50] VITALS: BP 133/78; PULSE 80; RESP 16; TEMP 36.7; O2SAT 96
== END 2025-01-26 02:05 | disposition skilled nursing facility (03) ==
PROVIDERS: Emergency Provider Student in an Organized Health Care Education/Training Program
DX: T83.091A Other mechanical complication of indwelling urethral catheter, initial encounter (principal); I69.359 Hemiplegia and hemiparesis following cerebral infarction affecting unspecified side; E78.5 Hyperlipidemia, unspecified; I10 Essential (primary) hypertension; I73.9 Peripheral vascular disease, unspecified
CPT/HCPCS: 51702; 36415; 76857; 80053; 81001; 84145; 85025; 85652; 86140; 99284

== ENCOUNTER 2025-02-07 10:05 | Emergency (ER) | payer MEDICARE, MEDICAID, SELFPAY ==
[2025-02-07] VITALS (20 sets, daily range): BP systolic 106–145; BP diastolic 68–89; PULSE 47–79; RESP 13–21; TEMP 36.6–36.9; O2SAT 96–100; BMI 28.3
--- NOTE | 2025-02-07 12:07 | PD.EDADULT ---
ED General RME/HPI General Chief complaint: Urogenital-Male Stated complaint: CATHETER PROBLEMS Time Seen by Provider: 02/07/25 10:56 Arrival date/time: 02/07/25 10:05 RME / HPI RME / HPI narrative: DR. FREEMAN MAIN ED EVALUATION: 69 year old male presents to the Emergency Department [facility] with complaint of Arevalo catheter not draining well onset yesterday. Other than that, the patient is asymptomatic. PMHx: Hemiplegia s/p CVA, hypertension, BPH, hyperlipidemia and peripheral vascular disease, Arevalo catheter in place with frequent visits for clogged Arevalo catheter. Social Hx: Marijuana use. No tobacco or alcohol use. Related Data Home Medications ?Medication ?Instructions ?Recorded ?Confirmed tamsulosin 0.4 mg capsule 0.4 mg PO QDAY 12/28/20 03/15/24 atorvastatin 10 mg tablet 1 tab PO HS 03/14/22 03/15/24 oxybutynin chloride 5 mg tablet 5 mg PO QDAY 12/10/22 03/15/24 ascorbic acid (vitamin C) 500 mg 500 mg PO QDAY 07/02/23 03/15/24 tablet bisacodyl 10 mg rectal suppository 10 mg AL QDAY PRN Constipation 07/02/23 03/15/24 (Dulcolax (bisacodyl)) hydrocodone 10 mg-acetaminophen 1 tab PO Q8H PRN Pain (Scale Score 07/02/23 03/15/24 325 mg tablet 4-6) ibuprofen 200 mg tablet 200 mg PO Q6H PRN Pain (Scale 07/02/23 03/15/24 Score 1-3) sodium phosphates 19 gram-7 118 ml AL QDAY PRN Constipation 07/02/23 03/15/24 gram/118 mL enema (Fleet Enema) Previous Rx's ?Medication ?Instructions ?Recorded ciprofloxacin HCl 500 mg tablet 500 mg PO BID #14 tabs 01/03/24 (Cipro) cephalexin 500 mg capsule 500 mg PO QID #28 caps 09/14/24 ondansetron 4 mg disintegrating 4 mg PO Q8H #10 tabs 10/30/24 tablet cefdinir 300 mg capsule 300 mg PO BID #20 caps 11/20/24 ciprofloxacin HCl 500 mg tablet 500 mg PO BID #14 tabs 05/04/25 (Cipro) Allergies Allergy/AdvReac Type Severity Reaction Status Date / Time No Known Allergies Allergy Verified 03/15/24 10:00 Review of Systems Review of Systems Systems Reviewed: All systems reviewed, normal except as documented Narrative Review of Systems: GEN: No fever, no chills, no weight loss EYES: No discharge, no visual changes, no pain HEENT: No ear pain, no congestion, no sore throat PULM: No shortness of breath, no cough, no congestion CV: No chest pain, no dyspnea on exertion, no palpitations GI: No nausea, no vomiting, no diarrhea, no pain, no constipation : No frequency, no urgency and no dysuria MUSC/SKEL: No joint pain, no back pain SKIN: No rash PSYCH: No hallucinations, no depression HEME/LYMPH: No easy bleeding or bruising tendencies NEURO: No weakness, no headache Past Medical History Past Medical History NEUROLOGIC: Positive Cerebrovascular Accident CARDIAC: Positive Peripheral Vascular Disease, Hypercholesterolemia and Hypertension GENITOURINARY: Positive Genitourinary Disorders, Renal Disease and Benign Prostatic Hyperplasia MUSCULOSKELETAL: Positive Musculoskeletal Disorders OTHER HISTORY: Positive Hospitalization and Falls Social History SMOKING STATUS: Former smoker SECOND HAND EXPOSURE: No SUBSTANCE USE: marijuana ALCOHOL: Never ED Exam Narrative Physical exam: GENERAL APPEARANCE: alert and oriented x 4, well-developed, well-nourished, no acute distress VITALS: All vitals were reviewed and the pulse ox is 96% on room air, which is normal according to my interpretation. HEENT: Normocephalic, atraumatic; pupils equal, round, reactive to light; EOMI; mucous membranes pink, moist; oropharynx clear NECK: Supple LUNGS: CTABL; no wheezes, no rales, no rhonchi HEART: Regular rate, regular rhythm; normal S1, S2; no murmurs ABDOMEN: non distended; normal BS; soft, no tenderness, no guarding, no rebound; no masses, no organomegaly, no hernia BACK: no CVA tenderness EXTREMITIES: atraumatic; no edema NEUROLOGIC: awake; alert and oriented x4; cranial nerves II-XII grossly intact; no focal sensory or motor deficits PSYCHIATRIC: appropriate mood and affect SKIN: warm, dry, normal color; no rashes Course Quality Measures none Reevaluation(s) Reevaluation #1: Patient had his Arevalo changed and states he is better. Asymptomatic. His new Arevalo is draining well. Patient will be discharged home. Time: 12:07 Vital Signs Vital signs: Vital Signs Pulse Rate 64 02/07/25 10:18 Respiratory Rate 16 02/07/25 10:18 Pulse Oximetry (%) 97 02/07/25 10:18 Discharge Plan Plan Patient Disposition: Xfer Skilled Nsg Fac (SNF) Discharge Disposition comment: [facility] Prescriptions/Referrals Prescriptions/Med Rec: No Action tamsulosin 0.4 mg Capsule 0.4 mg PO QDAY atorvastatin 10 mg tablet 1 tab PO HS Patient Comments: TAKE 1 TABLET BY MOUTH EVERYDAY AT BEDTIME oxybutynin chloride 5 mg Tablet 5 mg PO QDAY hydrocodone-acetaminophen 10-325 mg Tablet 1 tab PO Q8H PRN (Reason: Pain (Scale Score 4-6)) ascorbic acid (vitamin C) 500 mg Tablet 500 mg PO QDAY bisacodyl [Dulcolax (bisacodyl)] 10 mg Suppository 10 mg AL QDAY PRN (Reason: Constipation) Fleet Enema 19-7 gram/118 mL Enema 118 ml AL QDAY PRN (Reason: Constipation) ibuprofen 200 mg Tablet 200 mg PO Q6H PRN (Reason: Pain (Scale Score 1-3)) ciprofloxacin HCl [Cipro] 500 mg tablet 500 mg PO BID Qty: 14 0RF ondansetron 4 mg tablet,disintegrating 4 mg PO Q8H Qty: 10 0RF ciprofloxacin HCl [Cipro] 500 mg tablet 500 mg PO BID Qty: 14 0RF cephalexin 500 mg capsule 500 mg PO QID Qty: 28 0RF cefdinir 300 mg capsule 300 mg PO BID Qty: 20 0RF Referrals: No Primary/Family,Physician [Primary Care Provider] - In 1 week Problem List Clinical Impression: Complication, blocked Arevalo catheter Patient/Caregiver Discharge Instructions Education Materials: ED Arevalo Catheter, Care Print Language: Slovenian Stand Alone Forms: [employer] Info., Patient Portal Info Letter MDM Narrative [facility] hospital course: Diamond Valdes am scribing for and in the presence of Dr. Freeman. Clinical Information Provided by patient and EMS Medical Records Reviewed EMS Meds/Rx Considered, not Ordered None Labs/Rad/Tests considered, not Ordered None Chronic Illness/Social Conditions Add or document further as needed: PMHx: Hemiplegia s/p CVA, hypertension, BPH, hyperlipidemia and peripheral vascular disease, Arevalo catheter in place with frequent visits for clogged Arevalo catheter. Social Hx: Marijuana use. EKG EKG not done Lab Interpretation Labs: none Imaging Imaging interpretation: none Medication Administration(s) none Diagnosis Differential diagnosis: blocked Arevalo catheter, UTI due to urinary indwelling Arevalo catheter Most likely dx, and/or detailed dx discussion: Complication, blocked Arevalo catheter Dispositon Disposition: Discharge Home
--- NOTE | 2025-02-07 14:04 | PC.CC ---
Addendum entered by Lily Chen 02/07/25 16:12: ASW contacted [employer] [facility] and no p/u ETA has been assigned. If pt is still here after 0, call [email or web address] . [phone] and provide them with Trip Reservation #[id number] and ask for an p/u ETA. ASW contacted [employer] and asked if they have received the request from [employer] and Gema confirmed that they have not received a call yet. Addendum entered by Lily Chen 02/07/25 16:09: [email or web address] Trip Reservation #[id number]. [phone] Original Note: BRIAN Chen called [employer] [facility] to arrange transportation for this pt, as RN stated the pt was ready for d/c and needed transportation.
== END 2025-02-07 17:29 | disposition skilled nursing facility (03) ==
PROVIDERS: Emergency Provider Emergency Medicine
DX: T83.091A Other mechanical complication of indwelling urethral catheter, initial encounter (principal); Y73.8 Miscellaneous gastroenterology and urology devices associated with adverse incidents, not elsewhere classified; E78.5 Hyperlipidemia, unspecified; Z86.73 Personal history of transient ischemic attack (TIA), and cerebral infarction without residual deficits; I73.9 Peripheral vascular disease, unspecified; I10 Essential (primary) hypertension
CPT/HCPCS: 51702; 99283

== ENCOUNTER 2025-02-13 23:20 | Emergency (ER) | payer MEDICARE, MEDICAID, SELFPAY ==
[2025-02-13 23:24] VITALS: PULSE 64; RESP 20; BMI 27.4
[2025-02-13 23:30] VITALS: BP 109/67; PULSE 59; RESP 18; TEMP 36.7; O2SAT 98
--- NOTE | 2025-02-13 23:41 | EDNOTE_ITS ---
ED Male Genitalurinary RME/HPI General Chief complaint: Urogenital-Male Stated complaint: BLOOD IN CORONEL Time Seen by Provider: 02/13/25 23:34 Arrival date/time: 02/13/25 23:20 RME / HPI RME / HPI Narrative: Dr. Dejesus?s Main ED Evaluation: 59yo male with a history of CVA with right-sided hemiplegia, BPH, indwelling coronel catheter BIBA from [facility] presents to the ED for a chief complaint of hematuria. Patient states he does not know when he started having hematuria, but reports [facility] staff were concerned, so they sent him over for evaluation. Patient denies any fever, chills, nausea, vomiting, sweating, abdominal pain, back pain or any other associated symptoms. NKA. Related Data Home Medications ?Medication ?Instructions ?Recorded ?Confirmed tamsulosin 0.4 mg capsule 0.4 mg PO QDAY 12/28/2011/07 atorvastatin 10 mg tablet 1 tab PO HS 03/14/22 4 oxybutynin chloride 5 mg tablet 5 mg PO QDAY 12/10/22 03/15/24 ascorbic acid (vitamin C) 500 mg 500 mg PO QDAY 03/15/24 tablet bisacodyl 10 mg rectal suppository 10 mg MA QDAY PRN C onstipation 07/02/23 03/15/24 (Dulcolax (bisacodyl)) hydrocodone 10 mg-acetaminophen 1 tab PO Q8H PRN Pain (Scale Score 07/02/23 03/15/24 325 mg tablet 4-6) ibuprofen 200 mg tablet 200 mg PO Q6H PRN Pain (Scal e 07/02/23 03/15/24 Score 1-3) sodium phosphates 19 gram-7 118 ml MA QDAY PRN Constip ation 07/02/23 03/15/24 gram/118 mL enema (Fleet Enema) Previous Rx's ?Medication ?Instructions ?Recorded ciprofloxacin HCl 500 mg tablet 500 mg PO BID #14 tabs 01/03/24 (Cipro) cephalexin 500 mg capsule 500 mg PO QID #28 caps 09/14 ondansetron 4 mg disintegrating 4 mg PO Q8H #10 tabs 0 10/30/24 tablet cefdinir 300 mg capsule 300 mg PO BID #20 caps 11/20 ciprofloxacin HCl 500 mg tablet 500 mg PO BID #14 tabs 01/15/25 (Cipro) cefuroxime axetil 500 mg tablet 500 mg PO BID Urinary tract 02/14/25 infection 7 days #14 tabs Allergies Allergy/AdvReac Type Severity Reaction Status Date / Time No Known Allergies Allergy Verified 03/15/24 10:00 Review of Systems Review of Systems Systems Reviewed: All systems reviewed, normal except as documented Past Medical History Past Medical History NEUROLOGIC: Positive Cerebrovascular Accident; Negative Neurological Disorders or Seizures CARDIAC: Positive Cardiac Disorders, Peripheral Vascular Disease, Hypercholesterolemia and Hypertension; Negative Congestive Heart Failure RESPIRATORY: Negative Chronic Obstructive Pulmonary Disease (COPD) or Asthma GASTROINTESTINAL: Negative Gastrointestinal Disorders or Hepatitis GENITOURINARY: Positive Genitourinary Disorders, Renal Disease and Benign Prostatic Hyperplasia MUSCULOSKELETAL: Positive Musculoskeletal Disorders; Negative Rheumatoid Arthritis, Gout or Osteomyelitis ENT: Negative Cataracts ENDOCRINE: Negative Diabetes Mellitus Type 1 or Diabetes Mellitus Type 2 HEMATOLOGIC: Negative Blood Disorders or Sickle Cell Disease OTHER HISTORY: Positive Hospitalization and Falls; Negative Autoimmune Disease, Shingles, Blood Transfusions, Anesthesia Reactions, MRSA, Human Immunodeficiency Virus (HIV), Measles or Cancer Family History FAMILY HISTORY: Negative Family Psychiatric Problems, Family Respiratory Disorders, Family Cardiac Disorders, Family Gastrointestinal Problems, Family Cancer, Family Surgery or Family Anesthesia Reaction Surgical History SURGICAL: Negative Cardiac Surgery, Endocrine Surgery, Thyroidectomy, Ear Surgery or Abdominal Surgery Social History SMOKING STATUS: Never smoker SECOND HAND EXPOSURE: No SUBSTANCE USE: marijuana ED Exam Narrative Physical exam: GENERAL APPEARANCE: alert and oriented x 4, well-developed, well-nourished, no acute distress VITALS: All vitals were reviewed and the pulse ox is 98% on room air, which is normal according to my interpretation. HEENT: Normocephalic, atraumatic; pupils equal, round, reactive to light; EOMI; mucous membranes pink, moist; oropharynx clear NECK: Supple LUNGS: CTABL; no wheezes, no rales, no rhonchi HEART: Regular rate, regular rhythm; normal S1, S2; no murmurs ABDOMEN: non distended; normal BS; soft, no tenderness, no guarding, no rebound; no masses, no organomegaly, no hernia BACK: no CVA tenderness : coronel catheter in place with dark sediment noted EXTREMITIES: spastic paralysis of the right upper and lower extremities; atraumatic; no edema NEUROLOGIC: awake; alert and oriented x4; cranial nerves II-XII grossly intact PSYCHIATRIC: appropriate mood and affect SKIN: warm, dry, normal color; no rashes Course Quality Measures none Orders Category Date Time Status Urinalysis Stat Lab 02/14/25 00:45 Completed cefTRIAXone [Rocephin] 1,000 mg Med 02/14/25 01:15 Ordered Lidocaine 1% 20 ml [Xylocaine 1% 20 ML] 2.1 ml IM X1 Vital Signs Vital signs: Vital Signs Temperature 98.1 F 02/13/25 23:30 Pulse Rate 59 L 02/13/25 23:30 Respiratory Rate 18 02/13/25 23:30 Blood Pressure 109/67 02/13/25 23:30 Pulse Oximetry (%) 98 02/13/25 23:30 Oxygen Delivery Method Room Air 02/13/25 23:30 Urogenital - Male MDM Narrative MDM Narrative:: Scribe Attestation: 02/13/25 - Rula Valdes am scribing for and in the presence of Dr. Dejesus. Patient data External records reviewed:: [facility] [place] previous records (Per chart review, patient was seen here on 02/07/25 for a blocked coronel catheter.) Clinical information provided by:: patient Social determinants that could affect healthcare access:: housing (SNF resident) Patient has the following chronic illnesses:: HTN, HLD, BPH How is presenting disease/condition affected by chronic disease/condition?: caused by Evaluation data The following diagnostics were reviewed and interpreted by me:: lab results Lab and/or radiology exams considered but not ordered:: none Interpretation Summary: UA is positive for a UTI. Medications / Prescriptions Medications or Prescriptions considered but not ordered:: none Medication administrations:: Medication Administration History Ceftriaxone Sodium 1,000 mg/ (Lidocaine HCl 2.1 ml) 0 mg IM X1 ONE Stop: 02/14/25 01:16 see above Consultations Consultation(s) initiated? (list below): No Diagnosis Urogenital Male Differential Diagnosis: urinary tract infection and other (sepsis, severe sepsis, septic shock, pyelonephritis) Most likely diagnosis given after review of the tests above:: UTI Admission Indicated Admission indicated?: not indicated Explain why admission is indicated or not indicated:: Patient does not meet SIRS criteria and is stable for outpatient antibiotic management. Admission Request Was there a request for admission?: No Disposition Plan Disposition Plan: Discharge Discharge Attestation Discharge Attestation: The patient and all family members were given an opportunity to ask questions and understood the discharge instructions. Discharge instructions specifically effects, indications for sooner follow up or return to the emergency department, and the expected course of current diagnosis. Patient condition: Stable Discharge Plan Plan Patient Disposition: Xfer Skilled Nsg Fac (SNF) Discharge Disposition comment: Stable for discharge to the SNF Patient condition on transfer: Stable Prescriptions/Referrals Prescriptions/Med Rec: New cefuroxime axetil 500 mg tablet 500 mg PO BID 7 Days Qty: 14 0RF No Action tamsulosin 0.4 mg Capsule 0.4 mg PO QDAY atorvastatin 10 mg tablet 1 tab PO HS Patient Comments: TAKE 1 TABLET BY MOUTH EVERYDAY AT BEDTIME oxybutynin chloride 5 mg Tablet 5 mg PO QDAY hydrocodone-acetaminophen 10-325 mg Tablet 1 tab PO Q8H PRN (Reason: Pain (Scale Score 4-6)) ascorbic acid (vitamin C) 500 mg Tablet 500 mg PO QDAY bisacodyl [Dulcolax (bisacodyl)] 10 mg Suppository 10 mg MA QDAY PRN (Reason: Constipation) Fleet Enema 19-7 gram/118 mL Enema 118 ml MA QDAY PRN (Reason: Constipation) ibuprofen 200 mg Tablet 200 mg PO Q6H PRN (Reason: Pain (Scale Score 1-3)) ciprofloxacin HCl [Cipro] 500 mg tablet 500 mg PO BID Qty: 14 0RF ondansetron 4 mg tablet,disintegrating 4 mg PO Q8H Qty: 10 0RF ciprofloxacin HCl [Cipro] 500 mg tablet 500 mg PO BID Qty: 14 0RF cephalexin 500 mg capsule 500 mg PO QID Qty: 28 0RF cefdinir 300 mg capsule 300 mg PO BID Qty: 20 0RF Referrals: [facility] [Provider Group] - In 1 week Problem List Clinical Impression: Urinary tract infectious disease Patient/Caregiver Discharge Instructions Discharge Activity: activity as tolerated Education Materials: ED Bladder Infection, Male (Adult) Additional Instructions: Please return to the emergency department if you have any worsening or any further medical problems we will help you. Otherwise you should follow-up with your primary care doctor or in the family [facility] care clinic within the next several days I have written a prescription for an antibiotic called cefuroxime. You should take 1 tab twice per day for the full 7 days. If you develop back pain, chills, shakes, sweats or fevers please return to the ER right away Print Language: Sierra Leonean Stand Alone Forms: [employer] Info., Patient Portal Info Letter
[2025-02-14 00:51] LABS: Collection Type, Urine Catheter
[2025-02-14 00:54] LABS: Bilirubin,Urine Negative (Negative); Blood,Urine 3+ (Negative); Clarity,Urine Clear (Clear/Hazy); Color,Urine Yellow (Lt Yel-Yel); Glucose, Urine Negative (Negative); Ketones,Urine Trace (Negative); Leukocyte Esterase,Urine 3+ (Negative); Nitrite,Urine Positive (Negative); Protein,Urine 2+ (Neg - Trace); Specific Gravity,Urine 1.015 (1.001-1.035)
[2025-02-14 01:00] LABS: Bacteria,Urine 4+; RBC,Urine 10 /hpf (0-3); Squamous Epithelial Cell,Urine 5 /hpf (0-5); WBC,Urine 20 /hpf (0-5)
[2025-02-14 01:01] LABS: Calcium Oxalate Crystals,Urine 2+; Granular Casts,Urine 5 /hpf (0-1); Uric Acid Crystals,Urine 1+
[2025-02-14] MEDS: cefTRIAXone 1,000 MG, LIDOCAINE 1% 20 ML 2.1 ML IM (02:37)
== END 2025-02-14 02:46 | disposition skilled nursing facility (03) ==
PROVIDERS: Emergency Provider Emergency Medicine
DX: N39.0 Urinary tract infection, site not specified (principal); N40.0 Benign prostatic hyperplasia without lower urinary tract symptoms; I69.351 Hemiplegia and hemiparesis following cerebral infarction affecting right dominant side
CPT/HCPCS: 81001; 96372; 99283; J0696; J3490

== ENCOUNTER 2025-02-16 15:20 | Emergency (ER) | payer MEDICARE, MEDICAID, SELFPAY ==
[2025-02-16 15:28] VITALS: BP 109/85; PULSE 116; PULSE 124; RESP 12; RESP 17; TEMP 37.8; O2SAT 92; O2SAT 98; BMI 27.1
--- NOTE | 2025-02-16 15:50 | PD.EDADULT ---
ED General RME/HPI General Chief complaint: Seizure Stated complaint: SEIZURE Time Seen by Provider: 02/16/25 15:46 Arrival date/time: 02/16/25 15:20 RME / HPI RME / HPI narrative: DR. SALDAÑA MAIN ED EVALUATION: 69 year old male with past medical history significant for seizures on Keppra 750 mg and hyperlipidemia presents to the Emergency Department [facility] from [facility] with complaint of seizure activity lasting 4 minutes. Patient still seems postictal here but denies any pain. No further history. Related Data Home Medications ?Medication ?Instructions ?Recorded ?Confirmed tamsulosin 0.4 mg capsule 0.4 mg PO QDAY 12/28/20 03/15/24 atorvastatin 10 mg tablet 1 tab PO HS 03/14/22 03/15/24 oxybutynin chloride 5 mg tablet 5 mg PO QDAY 12/10/22 03/15/24 ascorbic acid (vitamin C) 500 mg 500 mg PO QDAY 07/02/23 03/15/24 tablet bisacodyl 10 mg rectal suppository 10 mg ID QDAY PRN Constipation 07/02/23 03/15/24 (Dulcolax (bisacodyl)) hydrocodone 10 mg-acetaminophen 1 tab PO Q8H PRN Pain (Scale Score 07/02/23 03/15/24 325 mg tablet 4-6) ibuprofen 200 mg tablet 200 mg PO Q6H PRN Pain (Scale 07/02/23 03/15/24 Score 1-3) sodium phosphates 19 gram-7 118 ml ID QDAY PRN Constipation 07/02/23 03/15/24 gram/118 mL enema (Fleet Enema) Previous Rx's ?Medication ?Instructions ?Recorded ciprofloxacin HCl 500 mg tablet 500 mg PO BID #14 tabs 01/03/24 (Cipro) cephalexin 500 mg capsule 500 mg PO QID #28 caps 09/14/24 ondansetron 4 mg disintegrating 4 mg PO Q8H #10 tabs 10/30/24 tablet cefdinir 300 mg capsule 300 mg PO BID #20 caps 11/20/24 ciprofloxacin HCl 500 mg tablet 500 mg PO BID #14 tabs 01/15/25 (Cipro) cefuroxime axetil 500 mg tablet 500 mg PO BID Urinary tract 02/14/25 infection 7 days #14 tabs Allergies Allergy/AdvReac Type Severity Reaction Status Date / Time No Known Allergies Allergy Verified 03/15/24 10:00 Review of Systems Review of Systems Systems Reviewed: All systems reviewed, normal except as documented Past Medical History Past Medical History NEUROLOGIC: Positive Cerebrovascular Accident and Seizures CARDIAC: Positive Cardiac Disorders, Peripheral Vascular Disease, Hypercholesterolemia and Hypertension GASTROINTESTINAL: Positive Hepatitis GENITOURINARY: Positive Genitourinary Disorders and Benign Prostatic Hyperplasia MUSCULOSKELETAL: Positive Musculoskeletal Disorders OTHER HISTORY: Positive Hospitalization and Falls Social History SMOKING STATUS: Never smoker SECOND HAND EXPOSURE: No SUBSTANCE USE: marijuana ALCOHOL: Never ED Exam Narrative Physical exam: GENERAL APPEARANCE: Appears to have a focal seizure, he is fixated to the left, tracks to the right and is tonic, not able to respond HEENT: NC, AT. MMM. EOMI, clear conjunctiva, oropharynx clear. NECK: Supple without lymphadenopathy. No stiffness or restricted ROM. HEART: Normal rate and regular rhythm, normal S1/S1, no m/r/g LUNGS: CTAB, moving air well. No crackles or wheezes are heard. ABDOMEN: Soft, nontender, nondistended with good bowel sounds heard. BACK: No midline C/T/L spine pain or deformity, No CVAT, no obvious deformity. EXTREMITIES: Without cyanosis, clubbing or edema. MUSCULOSKELETAL: no deformity; no chest tenderness NEUROLOGICAL: Appears to have a focal seizure, not able to respond; not able to spontaneously move 4 extremities Skin: Warm and dry without any rash. Course Quality Measures none Orders Category Date Time Status Bedside Blood Glucose NOW Care 02/16/25 15:51 Active Bedside COVID-19 Antigen Test NOW Care 02/16/25 18:32 Active Bedside Influenza A&B Antigen Test NOW Care 02/16/25 18:32 Active EKG (ED ONLY) *Do not use* NOW Care 02/16/25 15:51 Completed Referral - [employer]or Stat Cons 02/16/25 18:[address] head/brain wo con Stat Exams 02/16/25 16:34 Completed EKG (ED Only) Stat Exams 02/16/25 15:51 Draft XR chest 1V Stat Exams 02/16/25 15:51 Completed Blood Culture (Lab) Stat Lab 02/16/25 18:31 Ordered C-Reactive Protein Stat Lab 02/16/25 17:14 Results CBC Stat Lab 02/16/25 15:54 Results CMP [Comprehensive Metabolic Panel] Stat Lab 02/16/25 17:14 Results Free T4 (Free Thyroxine) Stat Lab 02/16/25 17:14 Results Lactate (Lactic Acid) Stat Lab 02/16/25 15:54 Results Magnesium Stat Lab 02/16/25 17:14 Results Partial Thromboplastin Time Stat Lab 02/16/25 15:54 Completed Procalcitonin Stat Lab 02/16/25 17:14 Results Prothrombin Time with INR Stat Lab 02/16/25 15:54 Completed Sed Rate (ESR) Stat Lab 02/16/25 15:54 Results Thyroid Stimulating Hormone Stat Lab 02/16/25 17:14 Results Troponin I Stat Lab 02/16/25 17:14 Results Urinalysis Stat Lab 02/16/25 17:44 Completed Acetaminophen Ivpb [Ofirmev Inj] Med 02/16/25 18:27 Discontinued 1,000 mg in 100 ml IV X1 Dexamethasone Inj [Decadron Inj] Med 02/16/25 18:08 Discontinued 10 mg IVP X1 ONE Ketorolac Inj [Toradol Inj] Med 02/16/25 18:27 Discontinued 30 mg IVP X1 ONE LORazepam [Ativan Inj] Med 02/16/25 15:50 Discontinued 2 mg IVP X1 ONE LORazepam [Ativan Inj] Med 02/16/25 16:34 Discontinued 2 mg IVP X1 ONE Lacosamide Ivp [Vimpat IVP] Med 02/16/25 18:26 Discontinued 200 mg IVP X1 ONE Sodium Chloride 0.9% 1000 ml [Ns] 1,000 ml Med 02/16/25 15:50 Discontinued IV 999 mls/hr cefTRIAXone/D5w 1gm IV premix [Rocephin/D5w 1gm IV Med 02/16/25 18:30 Active premix] 1 gm in 50 ml IV X1 levETIRAcetam INJ [Keppra Inj] Med 02/16/25 15:50 Discontinued 1,500 mg IVP X1 ONE Vital Signs Vital signs: Vital Signs Temperature 100.1 F 02/16/25 15:28 Pulse Rate 116 H 02/16/25 15:28 Respiratory Rate 12 02/16/25 15:28 Blood Pressure 109/85 H 02/16/25 15:28 Pulse Oximetry (%) 92 L 02/16/25 15:28 Oxygen Delivery Method Room Air 02/16/25 15:28 Discharge Plan Prescriptions/Referrals Prescriptions/Med Rec: No Action tamsulosin 0.4 mg Capsule 0.4 mg PO QDAY atorvastatin 10 mg tablet 1 tab PO HS Patient Comments: TAKE 1 TABLET BY MOUTH EVERYDAY AT BEDTIME oxybutynin chloride 5 mg Tablet 5 mg PO QDAY hydrocodone-acetaminophen 10-325 mg Tablet 1 tab PO Q8H PRN (Reason: Pain (Scale Score 4-6)) ascorbic acid (vitamin C) 500 mg Tablet 500 mg PO QDAY bisacodyl [Dulcolax (bisacodyl)] 10 mg Suppository 10 mg ID QDAY PRN (Reason: Constipation) Fleet Enema 19-7 gram/118 mL Enema 118 ml ID QDAY PRN (Reason: Constipation) ibuprofen 200 mg Tablet 200 mg PO Q6H PRN (Reason: Pain (Scale Score 1-3)) ciprofloxacin HCl [Cipro] 500 mg tablet 500 mg PO BID Qty: 14 0RF ondansetron 4 mg tablet,disintegrating 4 mg PO Q8H Qty: 10 0RF ciprofloxacin HCl [Cipro] 500 mg tablet 500 mg PO BID Qty: 14 0RF cefuroxime axetil 500 mg tablet 500 mg PO BID 7 Days Qty: 14 0RF cephalexin 500 mg capsule 500 mg PO QID Qty: 28 0RF cefdinir 300 mg capsule 300 mg PO BID Qty: 20 0RF Referrals: No Primary/Family,Physician [Primary Care Provider] - In 1 week Problem List Clinical Impression: Focal and partial seizures, Brain mass, Cerebral edema Patient/Caregiver Discharge Instructions Print Language: [place] [facility] Narrative Sign out note: Mr. Pryor presents to the emergency department with persistent focal partial seizures. Laboratory testing for secondary causes of seizure such as electrolyte abnormalities and hyponatremia was otherwise unremarkable. She did require quite aggressive seizure management control and continued focal seizure-like activities that appeared to be different from his baseline. Due to this change in baseline CT scan of the head was done which now shows a right frontal lesion with surrounding edema and midline shift. He was started on high-dose IV Decadron. Case was signed over to oncoming provider pending transfer to neurosurgery for further treatment, management, and stabilization [facility] hospital course: Diamond Valdes am scribing for and in the presence of Dr. Saldaña. Clinical Information Provided by EMS Medical Records Reviewed EMS and [facility] Meds/Rx Considered, not Ordered None Labs/Rad/Tests considered, not Ordered None Chronic Illness/Social Conditions Add or document further as needed: Seizures on Keppra 750 mg and hyperlipidemia EKG Interpretation EKG #1: Date/time of EK02/16/25 1605 hours EKG interpretation: sinus tachycardia, rate 111, normal intervals, normal axis, no acute ST-T wave changes. Imaging Radiology reports / interpretation(s): Procedure(s): XR chest 1V Accession Number(s): [id number] cc: Radhames Saldaña MD; Philippe Benjamin MD; NO PRIMARY/FAMILY,PHYSICIAN~ Examination: AP chest single view Technique one AP portable upright chest single view Date and time: February 16, 2025 1614 hours INDICATIONS: Seizure weakness today. FINDINGS: Normal heart size. Ectatic thoracic aorta. No aspiration pneumonia. Moderate osteopenia. IMPRESSION: Negative for aspiration pneumonia Dictated By: Philippe Benjamin MD Procedure(s): CT head/brain wo con Accession Number(s): [id number] cc: Radhames Saldaña MD; Philippe Benjamin MD; NO PRIMARY/FAMILY,PHYSICIAN~ Examination: CT brain head without contrast. 2-D sagittal coronal reconstructions Date and time of exam:February 16, 2025, 1705 hours INDICATIONS: Seizure today CTDI: vol (mGy):51.1 DLP: (mGycm):1095 Technique: Multiple CT axial sections of the brain have been obtained, 5 mm slice thickness. Contrast has not been administered. 2-D sagittal, coronal reconstructions have been obtained Low dose protocols were performed. One or more of the following dose reduction techniques were used; automated exposure control, adjustment of the mA and/or KV according to patient size, use of iterative reconstruction technique. 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 Dictated By: Philippe Benjamin MD Medication Administration(s) Medication Administration History Ceftriaxone Sodium/Dextrose (Rocephin/D5w 1gm Iv Premix) 1 gm in 50 mls @ 100 mls/hr IV X1 ONE Stop: 02/16/25 18:59 Discontinued Medications Dexamethasone Sodium Phosphate (Dexamethasone Sod Phos Inj 10 Mg/Ml Vial) 10 mg IVP X1 ONE Stop: 02/16/25 18:09 Last Admin: 02/16/25 18:22 Dose: 10 mg Documented By: Sodium Chloride (Ns) 1,000 mls @ 999 mls/hr IV .Q1H1M ONE Stop: 02/16/25 16:50 Last Infusion: 02/16/25 17:05 Dose: Infused Documented By: Admin: 02/16/25 16:01 Dose: 999 mls/hr Documented By: Acetaminophen (Ofirmev Inj) 1,000 mg in 100 mls @ 250 mls/hr IV X1 ONE Stop: 02/16/25 18:50 Last Admin: 02/16/25 18:51 Dose: 250 mls/hr Documented By: Ketorolac Tromethamine (Ketorolac Inj 30 Mg/Ml Vial) 30 mg IVP X1 ONE Stop: 02/16/25 18:28 Last Admin: 02/16/25 18:44 Dose: 30 mg Documented By: SM Lacosamide (Lacosamide Inj 200 Mg/20 Ml Vial) 200 mg IVP X1 ONE Stop: 02/16/25 18:27 Last Admin: 02/16/25 18:46 Dose: 200 mg Documented By: SM Levetiracetam (Levetiracetam Inj 100 Mg/Ml Vial 5ml) 1,500 mg IVP X1 ONE Stop: 02/16/25 15:51 Last Admin: 02/16/25 15:58 Dose: 1,500 mg Documented By: GM Lorazepam (Lorazepam 2 Mg/Ml Vial) 2 mg IVP X1 ONE Stop: 02/16/25 15:51 Last Admin: 02/16/25 15:56 Dose: 2 mg Documented By: GM Lorazepam (Lorazepam 2 Mg/Ml Vial) 2 mg IVP X1 ONE Stop: 02/16/25 16:35 Diagnosis Differential diagnosis: seizure, sepsis, dehydration Most likely dx, and/or detailed dx discussion: Focal seizure Dispositon Disposition: other (Signed out pending transfer) Disposition comments: 1800: Patient was signed out to Dr. Mosqueda. Past medical, surgical, social and family history reviewed. Vitals and home medications reviewed. Results and treatment plan discussed. They will assume the care of the patient at this time and will follow the patient, pending transfer.
--- NOTE | 2025-02-16 15:51 | EKG_ITS ---
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
[2025-02-16] MEDS: LORazepam 2 MG/ML VIAL IVP (15:56)
[2025-02-16] MEDS: levETIRAcetam INJ 100 MG/ML VIAL 5ML 1500 MG IVP (15:58)
[2025-02-16] MEDS: SODIUM CHLORIDE 0.9% 1000 ML 1,000 ML 999 ML IV (16:01)
[2025-02-16 16:05] LABS: Lactate (Lactic Acid) 3.1 mMol/L (0.4-2.0)
[2025-02-16 16:16] LABS: Basophils % (Auto) 0 % (0-2.5); Eosinophils # (Auto) 0.2 Thou/mm3 (0.0-0.5); Eosinophils % (Auto) 3 % (0-10); Hematocrit 41.7 % (41.0-53.0); Hemoglobin 13.6 g/dL (13.5-16.0); Immature Granulocytes % (Auto) 1 % (0-0); Immature Granulocytes Auto 0.03 Thou/mm3 (0.00-0.00); Lymphocytes # (Auto) 1.6 Thou/mm3 (1.0-4.8); Lymphocytes % (Auto) 26 % (10-50); Mean Corpuscular HGB Conc 32.6 g/dl (31.0-37.0); Mean Corpuscular Hemoglobin 26.8 pg (25.0-35.0); Mean Corpuscular Volume 82 fL (80-100); Monocytes # (Auto) 0.4 Thou/mm3 (0.0-0.8); Monocytes % (Auto) 6 % (0-12); Neutrophils # (Auto) 4.1 Thou/mm3 (1.8-7.7); Neutrophils % (Auto) 65 % (37-80); Nucleated Red Blood Cell % 0 /100 WBC (0); Platelet Count 219 Thou/mm3 (140-440); RDW Standard Deviation 45.5 fL (35.1-43.9); Red Blood Count 5.08 Miln/mm3 (4.50-5.90); White Blood Count 6.3 Thou/mm3 (3.8-10.6)
[2025-02-16 16:24] LABS: INR 1.1 (0.9-1.3); Partial Thromboplastin Time 22.2 Seconds (22.0-36.0); Prothrombin Time 11.8 Seconds (9.0-12.2)
--- NOTE | 2025-02-16 16:34 | XR_ITS ---
Examination: CT brain head without contrast. 2-D sagittal coronal reconstructions Date and time of exam:February 16, 2025, 1705 hours INDICATIONS: Seizure today CTDI: vol (mGy):51.1 DLP: (mGycm):1095 Technique: Multiple CT axial sections of the brain have been obtained, 5 mm slice thickness. Contrast has not been administered. 2-D sagittal, coronal reconstructions have been obtained Low dose protocols were performed. One or more of the following dose reduction techniques were used; automated exposure control, adjustment of the mA and/or KV according to patient size, use of iterative reconstruction technique. 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
[2025-02-16 16:57] VITALS: BP 121/74; PULSE 110; RESP 17; TEMP 37.8; O2SAT 98
--- NOTE | 2025-02-16 17:02 | PC.NURSE ---
RN CLARIFIED WITH DR. SALDAÑA THAT PT ALREADY HAS AN EXISTING GARAY IF OK FOR RN TO COLLECT URINE SAMPLES FROM EXISTING GARAY; PER DR. SALDAÑA, OK TO GET URINE SAMPLE FROM EXISTING GARAY; LET URINE FLOW FOR A LITTLE BIT THEN GRAB THE URINE SAMPLE FROM THE TUBING.
[2025-02-16 17:13] VITALS: PULSE 111; RESP 19; RESP 92; O2SAT 97
[2025-02-16 17:50] LABS: Collection Type, Urine Catheter
[2025-02-16 18:00] LABS: Bacteria,Urine 1+; Bilirubin,Urine Negative (Negative); Blood,Urine Negative (Negative); Clarity,Urine Hazy (Clear/Hazy); Color,Urine Yellow (Lt Yel-Yel); Glucose, Urine Negative (Negative); Ketones,Urine Negative (Negative); Leukocyte Esterase,Urine Positive (Negative); Nitrite,Urine Negative (Negative); PH,Urine 6.5 (5.0-7.0); Protein,Urine Negative (Neg - Trace); RBC,Urine 7 /hpf (0-3); Specific Gravity,Urine 1.021 (1.001-1.035); Squamous Epithelial Cell,Urine 6 /hpf (0-5); Urobilinogen,Urine Negative mg/dL (0.0-1.0); WBC,Urine 43 /hpf (0-5)
[2025-02-16 18:02] LABS: Alanine Aminotransferase 50 U/L (10-49); Albumin, Serum 3.7 gm/dL (3.4-4.8); Albumin/Globulin Ratio 1.2 (1.2-2.2); Alkaline Phosphatase 197 U/L (46-116); Anion Gap 14 (7-16); Aspartate Amino Transferase 60 U/L (0-34); BUN/Creatinine Ratio 14 Ratio (12-20); Bilirubin,Total 0.4 mg/dL (0.3-1.2); Blood Urea Nitrogen 14 mg/dL (9-23); Calcium 8.1 mg/dL (8.3-10.6); Calcium (Corrected) 8.3 mg/dL (8.5-10.1); Carbon Dioxide 20.4 mMol/L (20.0-31.0); Chloride 109 mMol/L (98-107); Estimated Creatinine Clearance 63.3 mL/min (>60); Globulin 3.1 gm/dL (2.3-3.5); Glucose 113 mg/dL (74-106); Osmolality,Calculated 286 (275-295); Potassium 4.2 mMol/L (3.4-5.1); Procalcitonin 0.07 ng/ml (0.0-0.49); Sodium 143 mMol/L (136-145); Total Protein 6.8 gm/dL (5.7-8.2); Troponin I < 0.002 ng/mL (0.0-0.045); eGFR > 60 See Note
--- NOTE | 2025-02-16 18:13 | PD.EDADDENDU ---
Emergency Room Addendum <Rula Pollack - Last Filed: 02/16/25 19:57> Addendum Narrative: I took over the care from Dr. Osman at 6 PM on 02/16/2025, see his notes for complete H&P and ED course. I was asked to take over this patient pending transfer to a higher [id number]. At 194, I discussed this case with Dr. Torres, neurosurgeon from [facility]. About the presentation and exam and diagnostics and treatments here. And need of further care in the hospital. Will accept the patient. <Milton Mosqueda MD - Last Filed: 02/16/25 20:07> Addendum Narrative: I took over the care from Dr. Osman at 6 PM on 02/16/2025, see his notes for complete H&P and ED course. At 1948, I discussed this case with Dr. Torres, neurosurgeon from [facility]. About the presentation and exam and diagnostics and treatments here. And need of further care there. Will accept the patient. Milton Mosqueda MD
[2025-02-16] MEDS: DEXAMETHASONE SOD PHOS INJ 10 MG/ML VIAL IVP (18:22)
--- NOTE | 2025-02-16 18:23 | PC.CC ---
Addendum entered by Debbi Vasquez RN 02/16/25 19:08: 1900 spoke to Lisa at [facility]. She requested to speak with Dr. Mosqueda, conference call connected. [facility] then connected Dr. So neuro-surgery on the line for peer to peer with Dr. Mosqueda. Dr. So declined the pt saying pt needs HLOC. Addendum entered by Debbi Vasquez RN 02/16/25 18:55: [address] [facility] via [employer]. Addendum entered by Debbi Vasquez RN 02/16/25 18:54: 1853 Clinicals sent to [facility] and [facility]. Addendum entered by Debbi Vasquez RN 02/16/25 18:48: 1842 spoke to Shena at [facility], gave verbal clinicals. She stated she will call back after checking beds. Original Note: 1824 Called [facility] and initiated the transfer request. 1823 faxed face sheet to [facility]. [address] Mosqueda, pt needs to be transferred for brain tumor mass with significant mass effect, need neuro-surgery services.
[2025-02-16 18:24] VITALS: BP 134/92; PULSE 115; RESP 18; TEMP 38.4; O2SAT 99
--- NOTE | 2025-02-16 18:27 | PC.NURSE ---
DR. MCCORMICK MADE AWARE PT'S TEMP 101.1 ORALLY AT THIS TIME; PER DR. MCCORMICK, WILL PUT ORDERS IN.
[2025-02-16] MEDS: KETOROLAC INJ 30 MG/ML VIAL IVP (18:44)
[2025-02-16] MEDS: LACOSAMIDE INJ 200 MG/20 ML VIAL IVP (18:46)
[2025-02-16] MEDS: ACETAMINOPHEN IVPB 1,000 MG/100 ML VIAL 250 MG IV (18:51)
[2025-02-16 19:04] LABS: Reflex Lactate? Y
[2025-02-16 19:11] LABS: C-Reactive Protein 1.2 mg/dL (0.0-0.9); Free T4 (Free Thyroxine) 1.21 ng/dL (0.89-1.76); Magnesium 1.8 mg/dL (1.6-2.6); Thyroid Stimulating Hormone 3.46 uIU/mL (0.55-4.78)
[2025-02-16 19:13] LABS: Sed Rate (ESR) 55 mm/hr (0-20)
[2025-02-16 19:35] LABS: Lactic Acid, 3 HR 2.1 mMol/L (0.4-2.0)
[2025-02-16] MEDS: cefTRIAXone/D5w 1gm IV premix 1 GM/50 ML BAG IV (19:45)
--- NOTE | 2025-02-16 19:57 | PC.NURSE ---
ACCEPTED [facility] ED TO ED BY MD CLANCY AT 1955.
--- NOTE | 2025-02-16 20:14 | PC.NURSE ---
THIS [facility] ATTEMPTED TO CALL [facility] TO NOTIFY THEM PT WAS BEING TRANSFERRED BUT PHONE AT FACILITY KEPT RINGING NO ANSWER MACHINE NO RESPONSE FROM STAFF
[2025-02-16 20:30] VITALS: BP 134/90; PULSE 91; RESP 17; TEMP 37.2; O2SAT 100
[2025-02-16] MEDS: SODIUM CHLORIDE 0.9% IV (20:44)
[2025-02-16] MEDS: DEXAMETHASONE IV (20:44)
[2025-02-16] MEDS: Mannitol Inj 20% IVPB 250 ML 500 ML IV (21:07)
[2025-02-16 21:28] VITALS: BP 132/97; PULSE 88; RESP 17; TEMP 37.2; O2SAT 99
--- NOTE | 2025-02-16 21:35 | PC.NURSE ---
Pt did not received full dose of IV Mannitol, IV pump continuously alarming for unknown occlusion. Replaced IV tubing, IV pump, changed micro filter, and flushed IV lines multiple times; however, IV pump still alarming for occlusion. Dr. Mosqueda made aware [facility] already here to transfer pt and Mannitol has not been infused completely. Per Dr. Mosqueda, ok if pt does not received full dose of Mannitol; it's more important that pt is transferred joann.
--- NOTE | 2025-02-16 21:40 | PC.NURSE ---
[facility] here to transfer pt to [place]; report given to ANASTASIA Dewey Report given to MADY Byrd at [facility].
== END 2025-02-16 21:39 | disposition short-term general hospital (02) ==
PROVIDERS: Emergency Medicine; Emergency Provider Emergency Medicine
DX: G93.89 Other specified disorders of brain (principal); G93.6 Cerebral edema; R56.9 Unspecified convulsions; R53.1 Weakness; E78.00 Pure hypercholesterolemia, unspecified; I10 Essential (primary) hypertension; Z75.1 Person awaiting admission to adequate facility elsewhere
CPT/HCPCS: 36415; 70450; 71045; 80053; 81001; 83605; 83735; 84145; 84439; 84443; 84484; 85025; 85610; 85652; 85730; 86140; 87040; 87400; 87811; 93005; 96361; 96365; 96367; 96375; 99285; C9254; J0131; J0696; J1100; J1885; J1953; J2060; J3490; J7030; J7050

== ENCOUNTER 2025-03-18 10:07 | Inpatient (IN) | payer MEDICARE, MEDICAID, SELFPAY ==
[2025-03-18] VITALS (10 sets, daily range): BP systolic 93–121; BP diastolic 64–81; PULSE 86–115; RESP 16–23; TEMP 37–38.9; O2SAT 95–99; BMI 27.4
--- NOTE | 2025-03-18 10:28 | EKG_ITS ---
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
--- NOTE | 2025-03-18 10:33 | XR_ITS ---
Examination: AP chest single view Technique one AP portable supine chest single view Date and time: March 18, 2025, 1112 hrs. Comparison February 16, 2025 Indications: Chest pain fever beginning 2 days ago. Findings: Mild enlargement cardiac contour. Mild vascular congestion. Air bronchograms left base retrocardiac suspicious for early left base pneumonia Impression: Suspicious for early left base pneumonia
--- NOTE | 2025-03-18 10:44 | PD.EDFEVER ---
ED Fever RME/HPI General Chief Complaint: Fever Stated Complaint: ALTERED Time Seen by Provider: 03/18/25 10:34 Arrival date/time: 03/18/25 10:07 RME / HPI RME / HPI Narrative: DR. MCCORMICK MAIN ED EVALUATION: This section includes all my notes and documentations, including HPI, PE, and ED course.? Milton Mccormick MD HPI: 69 year old male with past medical history for seizures on Keppra 750 mg and hyperlipidemia coming from jail with increased lethargy and subjective fever for the past several days. 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 No other complaints. ROS: All negative except as documented in HPI. Physical Exam: General: Lethargic. Fever noted. Eyes:? Conjunctivae and lids clear. ENT:? No nasal congestion.? ? Neck:? Supple. Heart: Sinus tachycardia noted. Lungs:? No respiratory distress.? Good air movement.? No severe rhonchi, wheezing, rales.? Abdomen:? Soft and nontender.? Skin:? Warm and dry.? I reviewed all diagnostic test results. My interpretation of the EKG is: Sinus tachycardia (111 bpm) with nonspecific ST-T changes. My interpretation of the chest x-ray is infiltrates. Blood and urine tests and COVID/influenza pending. At this point, diagnoses include sepsis. Treatment here included IV fluid, Tylenol, Toradol, and Rocephin. At 12:30 PM, the care of the patient was transferred to Dr. Alexandre. Milton Mccormick MD Related Data Home Medications ?Medication ?Instructions ?Recorded ?Confirmed tamsulosin 0.4 mg capsule 0.4 mg PO QDAY 12/28/20 03/15/24 atorvastatin 10 mg tablet 1 tab PO HS 03/14/22 03/15/24 oxybutynin chloride 5 mg tablet 5 mg PO QDAY 12/10/22 03/15/24 ascorbic acid (vitamin C) 500 mg 500 mg PO QDAY 07/02/23 03/15/24 tablet bisacodyl 10 mg rectal suppository 10 mg OK QDAY PRN Constipation 07/02/23 03/15/24 (Dulcolax (bisacodyl)) hydrocodone 10 mg-acetaminophen 1 tab PO Q8H PRN Pain (Scale Score 07/02/23 03/15/24 325 mg tablet 4-6) ibuprofen 200 mg tablet 200 mg PO Q6H PRN Pain (Scale 07/02/23 03/15/24 Score 1-3) sodium phosphates 19 gram-7 118 ml OK QDAY PRN Constipation 07/02/23 03/15/24 gram/118 mL enema (Fleet Enema) Previous Rx's ?Medication ?Instructions ?Recorded ciprofloxacin HCl 500 mg tablet 500 mg PO BID #14 tabs 01/03/24 (Cipro) cephalexin 500 mg capsule 500 mg PO QID #28 caps 09/14/24 ondansetron 4 mg disintegrating 4 mg PO Q8H #10 tabs 10/30/24 tablet cefdinir 300 mg capsule 300 mg PO BID #20 caps 11/20/24 ciprofloxacin HCl 500 mg tablet 500 mg PO BID #14 tabs 01/15/25 (Cipro) Allergies Allergy/AdvReac Type Severity Reaction Status Date / Time No Known Allergies Allergy Verified 03/15/24 10:00 Course Quality Measures none Orders Category Date Time Status Bedside Blood Glucose NOW Care 03/18/25 10:59 Active Bedside COVID-19 Antigen Test NOW Care 03/18/25 10:31 Active Bedside Influenza A&B Antigen Test NOW Care 03/18/25 10:31 Active EKG (ED ONLY) *Do not use* NOW Care 03/18/25 10:28 Completed Saline [Insert IV] NOW Care 03/18/25 10:31 Active EKG (ED Only) Stat Exams 03/18/25 10:28 Draft XR chest 1V portable Stat Exams 03/18/25 10:33 Completed Bilirubin,Direct Stat Lab 03/18/25 10:50 Completed Blood Culture (Lab) Stat Lab 03/18/25 10:51 Received CBC Stat Lab 03/18/25 10:50 Completed CMP [Comprehensive Metabolic Panel] Stat Lab 03/18/25 10:50 Completed CRP [C-Reactive Protein] Stat Lab 03/18/25 10:50 Completed ESR [Sed Rate (ESR)] Stat Lab 03/18/25 10:50 Completed Free T4 (Free Thyroxine) Stat Lab 03/18/25 10:50 Completed Lactate (Lactic Acid) Stat Lab 03/18/25 10:50 Completed Magnesium Stat Lab 03/18/25 10:50 Completed Procalcitonin Stat Lab 03/18/25 10:50 Completed TSH [Thyroid Stimulating Hormone] Stat Lab 03/18/25 10:50 Completed Troponin I Stat Lab 03/18/25 10:50 Completed UA, C/S IF [Urinalysis, C/S if Indicated] Stat Lab 03/18/25 11:58 Received VBG [Venous Blood Gas] Stat Lab 03/18/25 10:50 Completed Acetaminophen Ivpb [Ofirmev Inj] Med 03/18/25 10:31 Discontinued 1,000 mg in 100 ml IV X1 Ketorolac Inj [Toradol Inj] Med 03/18/25 10:31 Discontinued 15 mg IVP X1 ONE Ondansetron Inj [Zofran Inj] Med 03/18/25 10:31 Discontinued 4 mg IVP X1 ONE Sodium Chloride 0.9% 1000 ml [Ns] 1,000 ml Med 03/18/25 10:31 Discontinued IV 999 mls/hr Sodium Chloride 0.9% 1000 ml [Ns] 1,000 ml Med 03/18/25 10:44 Discontinued IV 999 mls/hr cefTRIAXone/D5w 1gm IV premix [Rocephin/D5w 1gm IV Med 03/18/25 10:31 Discontinued premix] 1 gm in 50 ml IV X1 Vital Signs Vital signs: Vital Signs Temperature 102.1 F H 03/18/25 10:26 Pulse Rate 115 H 03/18/25 10:26 Respiratory Rate 18 03/18/25 10:26 Blood Pressure 121/81 03/18/25 10:26 Pulse Oximetry (%) 99 03/18/25 10:26 Oxygen Delivery Method Room Air 03/18/25 10:26 Fever MDM Narrative MDM Narrative:: I, Diamond Judge am scribing for and in the presence of Dr. Mccormick. 69 year old male with past medical history for seizures on Keppra 750 mg and hyperlipidemia coming from jail with increased lethargy and subjective fever for the past several days. 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 No other complaints. Patient data External records reviewed:: [facility] previous records and EMS form Clinical information provided by:: patient and EMS Social determinants that could affect healthcare access:: other (specify) (Former smoker.) Patient has the following chronic illnesses:: Seizures on Keppra 750 mg and hyperlipidemia How is presenting disease/condition affected by chronic disease/condition?: exacerbated by Evaluation data The following diagnostics were reviewed and interpreted by me:: lab results, radiology exam(s) and EKG tracing(s) (My interpretation of the EKG is: Sinus tachycardia (111 bpm) with nonspecific ST-T changes. Milton Mccormick MD) Lab and/or radiology exams considered but not ordered:: none Interpretation Summary: I reviewed all diagnostic test results. My interpretation of the EKG is: Sinus tachycardia (111 bpm) with nonspecific ST-T changes. My interpretation of the chest x-ray is infiltrates. Medications / Prescriptions Medications or Prescriptions considered but not ordered:: none Medication administrations:: Medication Administration History Discontinued Medications Acetaminophen (Ofirmev Inj) 1,000 mg in 100 mls @ 250 mls/hr IV X1 ONE Stop: 03/18/25 10:54 Last Infusion: 03/18/25 11:42 Dose: Infused Documented By: Admin: 03/18/25 11:18 Dose: 250 mls/hr Documented By: JUDY Ceftriaxone Sodium/Dextrose (Rocephin/D5w 1gm Iv Premix) 1 gm in 50 mls @ 100 mls/hr IV X1 ONE Stop: 03/18/25 11:00 Last Infusion: 03/18/25 11:48 Dose: Infused Documented By: Admin: 03/18/25 11:18 Dose: 100 mls/hr Documented By: JUDY Sodium Chloride (Ns) 1,000 mls @ 999 mls/hr IV .Q1H1M ONE Stop: 03/18/25 11:31 Last Admin: 03/18/25 11:18 Dose: 999 mls/hr Documented By: JUDY Sodium Chloride (Ns) 1,000 mls @ 999 mls/hr IV .Q1H1M ONE Stop: 03/18/25 11:44 Last Admin: 03/18/25 11:58 Dose: 999 mls/hr Documented By: JEWEL Ketorolac Tromethamine (Ketorolac Inj 30 Mg/Ml Vial) 15 mg IVP X1 ONE Stop: 03/18/25 10:32 Last Admin: 03/18/25 11:18 Dose: 15 mg Documented By: JUDY Ondansetron HCl (Ondansetron Inj 2 Mg/Ml Inj 2 Ml) 4 mg IVP X1 ONE; Protocol Stop: 03/18/25 10:32 Last Admin: 03/18/25 11:17 Dose: 4 mg Documented By: JUDY Treatment here included IV fluid, Tylenol, Toradol, and Rocephin. Consultations Consultation(s) initiated? (list below): No Diagnosis Fever Differential Diagnosis: cellulitis, fever of unknown origin, gastroenteritis, community acquired pneumonia, pyelonephritis, viral infection, sepsis and influenza Most likely diagnosis given after review of the tests above:: Sepsis Admission Indicated Admission indicated?: not indicated Explain why admission is indicated or not indicated:: Complete diagnostics pending. Admission Request Was there a request for admission?: No Disposition Plan Disposition Plan: other (specify) (At 12:30 PM, the care of the patient was transferred to Dr. Alexandre.) Discharge Plan Prescriptions/Referrals Prescriptions/Med Rec: No Action tamsulosin 0.4 mg Capsule 0.4 mg PO QDAY atorvastatin 10 mg tablet 1 tab PO HS Patient Comments: TAKE 1 TABLET BY MOUTH EVERYDAY AT BEDTIME oxybutynin chloride 5 mg Tablet 5 mg PO QDAY hydrocodone-acetaminophen 10-325 mg Tablet 1 tab PO Q8H PRN (Reason: Pain (Scale Score 4-6)) ascorbic acid (vitamin C) 500 mg Tablet 500 mg PO QDAY bisacodyl [Dulcolax (bisacodyl)] 10 mg Suppository 10 mg OK QDAY PRN (Reason: Constipation) Fleet Enema 19-7 gram/118 mL Enema 118 ml OK QDAY PRN (Reason: Constipation) ibuprofen 200 mg Tablet 200 mg PO Q6H PRN (Reason: Pain (Scale Score 1-3)) ciprofloxacin HCl [Cipro] 500 mg tablet 500 mg PO BID Qty: 14 0RF ondansetron 4 mg tablet,disintegrating 4 mg PO Q8H Qty: 10 0RF ciprofloxacin HCl [Cipro] 500 mg tablet 500 mg PO BID Qty: 14 0RF cephalexin 500 mg capsule 500 mg PO QID Qty: 28 0RF cefdinir 300 mg capsule 300 mg PO BID Qty: 20 0RF Referrals: Trigleth,Jerrod, PA-C [Primary Care Provider] - In 1 week Problem List Clinical Impression: Sepsis Patient/Caregiver Discharge Instructions Print Language: Citizen Of [place]
[2025-03-18] MEDS: ONDANSETRON INJ 2 MG/ML INJ 2 ML 4 MG IVP (11:17)
[2025-03-18] MEDS: SODIUM CHLORIDE 0.9% 1000 ML 1,000 ML 999 ML IV ×2 (11:18→11:58)
[2025-03-18] MEDS: ACETAMINOPHEN IVPB 1,000 MG/100 ML VIAL 250 MG IV (11:18)
[2025-03-18] MEDS: KETOROLAC INJ 30 MG/ML VIAL 15 MG IVP (11:18)
[2025-03-18] MEDS: cefTRIAXone/D5w 1gm IV premix 1 GM/50 ML BAG IV (11:18)
[2025-03-18 11:19] LABS: Base Excess, Venous 0 (-3-3); Lactate (Lactic Acid) 1.8 mMol/L (0.4-2.0); O2 Saturation, Venous 94 % (96-97); PCO2, Venous 41 mmHg (36-56); PO2, Venous 65 mmHg (15-58); pH, Venous 7.39 (7.33-7.66)
[2025-03-18 11:22] LABS: Basophils # (Auto) 0.1 Thou/mm3 (0.0-0.2); Basophils % (Auto) 0 % (0-2.5); Eosinophils # (Auto) 0.0 Thou/mm3 (0.0-0.5); Eosinophils % (Auto) 0 % (0-10); Hematocrit 33.7 % (41.0-53.0); Hemoglobin 10.9 g/dL (13.5-16.0); Immature Granulocytes Auto 0.22 Thou/mm3 (0.00-0.00); Lymphocytes # (Auto) 1.7 Thou/mm3 (1.0-4.8); Lymphocytes % (Auto) 8 % (10-50); Mean Corpuscular HGB Conc 32.3 g/dl (31.0-37.0); Mean Corpuscular Hemoglobin 27.3 pg (25.0-35.0); Mean Corpuscular Volume 84 fL (80-100); Monocytes # (Auto) 2.2 Thou/mm3 (0.0-0.8); Monocytes % (Auto) 11 % (0-12); Neutrophils # (Auto) 15.6 Thou/mm3 (1.8-7.7); Neutrophils % (Auto) 79 % (37-80); Nucleated Red Blood Cell # 0.00 Thou/mm3 (0.00-0.00); Nucleated Red Blood Cell % 0 /100 WBC (0); Platelet Count 238 Thou/mm3 (140-440); RDW Standard Deviation 53.3 fL (35.1-43.9); Red Blood Count 4.00 Miln/mm3 (4.50-5.90); White Blood Count 19.8 Thou/mm3 (3.8-10.6)
[2025-03-18 11:29] LABS: Sed Rate (ESR) 71 mm/hr (0-20)
[2025-03-18 11:56] LABS: Alanine Aminotransferase 122 U/L (10-49); Albumin, Serum 3.5 gm/dL (3.4-4.8); Albumin/Globulin Ratio 1.2 (1.2-2.2); Alkaline Phosphatase 190 U/L (46-116); Anion Gap 11 (7-16); Aspartate Amino Transferase 121 U/L (0-34); BUN/Creatinine Ratio 24 Ratio (12-20); Bilirubin,Direct 0.3 mg/dL (0.0-0.3); Bilirubin,Total 0.7 mg/dL (0.3-1.2); Blood Urea Nitrogen 29 mg/dL (9-23); C-Reactive Protein > 10.0 mg/dL (0.0-0.9); Calcium 8.4 mg/dL (8.3-10.6); Calcium (Corrected) 8.8 mg/dL (8.5-10.1); Carbon Dioxide 24.4 mMol/L (20.0-31.0); Chloride 101 mMol/L (98-107); Creatinine (Component) 1.2 mg/dL (0.6-1.3); Estimated Creatinine Clearance 53.0 mL/min (>60); Free T4 (Free Thyroxine) 1.03 ng/dL (0.89-1.76); Globulin 3.0 gm/dL (2.3-3.5); Glucose 173 mg/dL (74-106); Magnesium 2.1 mg/dL (1.6-2.6); Osmolality,Calculated 281 (275-295); Potassium 4.5 mMol/L (3.4-5.1); Procalcitonin 1.51 ng/ml (0.0-0.49); Sodium 136 mMol/L (136-145); Thyroid Stimulating Hormone 4.25 uIU/mL (0.55-4.78); Total Protein 6.5 gm/dL (5.7-8.2); Troponin I < 0.020 ng/mL (0.0-0.045); eGFR > 60 See Note
[2025-03-18 12:04] LABS: Collection Type, Urine Clean Catch
[2025-03-18 12:21] LABS: Bacteria,Urine 4+; Bilirubin,Urine Negative (Negative); Blood,Urine 1+ (Negative); Color,Urine Yellow (Lt Yel-Yel); Culture Indicated,Urine Contaminated; Glucose, Urine Negative (Negative); Ketones,Urine Negative (Negative); Leukocyte Esterase,Urine Positive (Negative); Nitrite,Urine Positive (Negative); PH,Urine 6.0 (5.0-7.0); Protein,Urine 2+ (Neg - Trace); RBC,Urine 44 /hpf (0-3); Specific Gravity,Urine 1.030 (1.001-1.035); Squamous Epithelial Cell,Urine 25 /hpf (0-5); Urobilinogen,Urine 2.0 mg/dL (0.0-1.0); WBC,Urine 337 /hpf (0-5)
[2025-03-18 12:22] LABS: Clarity,Urine Turbid (Clear/Hazy)
--- NOTE | 2025-03-18 12:25 | PD.EDADDENDU ---
Emergency Room Addendum Addendum Narrative: 1230: Care assumed from Dr. Mosqueda, the previous shift emergency physician. Past medical, surgical, social and family history reviewed. Vitals and home medications reviewed. I will assume the care of the patient at this time. Please refer to the emergency department record for history and examination from initial visit.? Physical exam by me shows patient under no acute distress at this time. 1730: Discussed test HPI, PMHx, lab, radiology results and/or management with resident working with the hospitalist. Will admit for further evaluation and management. Accepts patient for admission. Diagnoses: -Sepsis -Acute pyelonephritis Results Objective Laboratory: Laboratory Last Values WBC 19.8 Thou/mm3 (3.8-10.6) H 03/18/25 10:50 RBC 4.00 Miln/mm3 (4.50-5.90) L 03/18/25 10:50 Hgb 10.9 g/dL (13.5-16.0) L 03/18/25 10:50 Hct 33.7 % (41.0-53.0) L 03/18/25 10:50 MCV 84 fL (80-100) 03/18/25 10:50 MCH 27.3 pg (25.0-35.0) 03/18/25 10:50 MCHC 32.3 g/dl (31.0-37.0) 03/18/25 10:50 RDW Std Deviation 53.3 fL (35.1-43.9) H 03/18/25 10:50 Plt Count 238 Thou/mm3 (140-440) 03/18/25 10:50 Neut % (Auto) 79 % (37-80) 03/18/25 10:50 Lymph % (Auto) 8 % (10-50) L 03/18/25 10:50 Edmunds % (Auto) 11 % (0-12) 03/18/25 10:50 Eos % (Auto) 0 % (0-10) 03/18/25 10:50 Baso % (Auto) 0 % (0-2.5) 03/18/25 10:50 Neut # (Auto) 15.6 Thou/mm3 (1.8-7.7) H 03/18/25 10:50 Lymph # (Auto) 1.7 Thou/mm3 (1.0-4.8) 03/18/25 10:50 [place]munds # (Auto) 2.2 Thou/mm3 (0.0-0.8) H 03/18/25 10:50 Eos # (Auto) 0.0 Thou/mm3 (0.0-0.5) 03/18/25 10:50 Baso # (Auto) 0.1 Thou/mm3 (0.0-0.2) 03/18/25 10:50 Immature Gran # (Auto) 0.22 Thou/mm3 (0.00-0.00) H 03/18/25 10:50 Absolute Nucleated RBC 0.00 Thou/mm3 (0.00-0.00) 03/18/25 10:50 Immature Gran % 1 % (0-0) H 03/18/25 10:50 Nucleated RBC % 0 /100 WBC (0) 03/18/25 10:50 Smear Path Review Sent to Pathologist 03/18/25 10:50 ESR 71 mm/hr (0-20) H 03/18/25 10:50 VBG pH 7.39 (7.33-7.66) 03/18/25 10:50 VBG pCO2 41 mmHg (36-56) 03/18/25 10:50 VBG pO2 65 mmHg (15-58) H 03/18/25 10:50 VBG O2 Sat (Dilcia) 94 % (96-97) L 03/18/25 10:50 VBG Base Excess 0 (-3-3) 03/18/25 10:50 Sodium 136 mMol/L (136-145) 03/18/25 10:50 Potassium 4.5 mMol/L (3.4-5.1) 03/18/25 10:50 Chloride 101 mMol/L (98-107) 03/18/25 10:50 Carbon Dioxide 24.4 mMol/L (20.0-31.0) 03/18/25 10:50 Anion Gap 11 (7-16) 03/18/25 10:50 BUN 29 mg/dL (9-23) H 03/18/25 10:50 Creatinine 1.2 mg/dL (0.6-1.3) 03/18/25 10:50 Estim Creat Clear Calc 53.0 mL/min (>60) L 03/18/25 10:50 eGFR > 60 See Note (60-) 03/18/25 10:50 BUN/Creatinine Ratio 24 Ratio (12-20) H 03/18/25 10:50 Glucose 173 mg/dL (74-106) H 03/18/25 10:50 Calculated Osmolality 281 (275-295) 03/18/25 10:50 Lactic Acid 1.8 mMol/L (0.4-2.0) 03/18/25 10:50 Calcium 8.4 mg/dL (8.3-10.6) 03/18/25 10:50 Corrected Calcium 8.8 mg/dL (8.5-10.1) 03/18/25 10:50 Magnesium 2.1 mg/dL (1.6-2.6) 03/18/25 10:50 Total Bilirubin 0.7 mg/dL (0.3-1.2) 03/18/25 10:50 Direct Bilirubin 0.3 mg/dL (0.0-0.3) 03/18/25 10:50 AST 121 U/L (0-34) H 03/18/25 10:50 ALT 122 U/L (10-49) H 03/18/25 10:50 Alkaline Phosphatase 190 U/L (46-116) H 03/18/25 10:50 Troponin I < 0.020 ng/mL (0.0-0.045) 03/18/25 10:50 C-Reactive Prot, Quant > 10.0 mg/dL (0.0-0.9) H 03/18/25 10:50 Total Protein 6.5 gm/dL (5.7-8.2) 03/18/25 10:50 Albumin 3.5 gm/dL (3.4-4.8) 03/18/25 10:50 Globulin 3.0 gm/dL (2.3-3.5) 03/18/25 10:50 Albumin/Globulin Ratio 1.2 (1.2-2.2) 03/18/25 10:50 Procalcitonin 1.51 ng/ml (0.0-0.49) H 03/18/25 10:50 TSH 4.25 uIU/mL (0.55-4.78) 03/18/25 10:50 Free T4 1.03 ng/dL (0.89-1.76) 03/18/25 10:50 Ur Collection Type Clean Catch 03/18/25 11:58 Urine Color Yellow (Lt Yel-Yel) 03/18/25 11:58 Urine Clarity Turbid (Clear/Hazy) A 03/18/25 11:58 Urine pH 6.0 (5.0-7.0) 03/18/25 11:58 Ur Specific [place] 1.030 (1.001-1.035) 03/18/25 11:58 Urine Protein 2+ (Neg - Trace) A 03/18/25 11:58 Urine Glucose (UA) Negative (Negative) 03/18/25 11:58 Urine Ketones Negative (Negative) 03/18/25 11:58 Urine Blood 1+ (Negative) A 03/18/25 11:58 Urine Nitrite Positive (Negative) 03/18/25 11:58 Urine Bilirubin Negative (Negative) 03/18/25 11:58 Urine Urobilinogen (Auto) 2.0 mg/dL (0.0-1.0) 03/18/25 11:58 Ur Leukocyte Esterase Positive (Negative) 03/18/25 11:58 Urine RBC 44 /hpf (0-3) H 03/18/25 11:58 Urine WBC 337 /hpf (0-5) H 03/18/25 11:58 Ur Squamous Epith Cells 25 /hpf (0-5) H 03/18/25 11:58 Urine Bacteria 4+ (None) A 03/18/25 11:58 Ur Culture Indicated? Contaminated 03/18/25 11:58 Imaging: Procedure(s): XR chest 1V portable Accession Number(s): [id number] cc: Milton Mosqueda MD; Philippe Benjamin MD; SPENCER GRAHAM~ Examination: AP chest single view Technique one AP portable supine chest single view Date and time: March 18, 2025, 1112 hrs. Comparison February 16, 2025 Indications: Chest pain fever beginning 2 days ago. Findings: Mild enlargement cardiac contour. Mild vascular congestion. Air bronchograms left base retrocardiac suspicious for early left base pneumonia Impression: Suspicious for early left base pneumonia Dictated By: Philippe Benjamin MD
[2025-03-18 16:07] LABS: Path Review Blood Smear Sent to Pathologist
--- NOTE | 2025-03-18 17:59 | PD.RESHP ---
Documentation for date of: 03/18/25 [facility] History of Present Illness History of present illness: 69 year old male with past medical history for seizures on Keppra 750 mg, hyperlipidemia, and CVA coming from intermediate with increased lethargy and subjective fever for the past several days. 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 No other complaints. 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 CXR suspicious for early left base pneumonia. Blood and urine tests and COVID/influenza pending. Treatment in ED included IV fluid, Tylenol, Toradol, and Rocephin. Review of Systems Review of Systems Narrative Review of Systems: All negative except as documented in HPI. Exam Vital Signs Temp Pulse Resp BP Pulse Ox O2 Del Method O2 Flow Rate 99.0 F 92 16 105/73 95 Nasal Cannula 2 03/18/25 16:38 03/18/25 16:38 03/18/25 16:38 03/18/25 16:38 03/18/25 16:38 03/18/25 16:38 03/18/25 16:38 Narrative Exam General: Lethargic. Slightly confused. Not good historian. Appears toxic. HEENT: Conjunctivae and lids clear. No nasal congestion. Neck supple Heart: Sinus tachycardia. S1 +S2. No murmurs/rubs/gallops Lungs: No respiratory distress. Good air movement. No severe rhonchi, wheezing, rales. Abdomen: Bowel sounds present. Soft. Tender to R and L flanks Skin: Warm and dry. Neuro: No focal deficits. Reduced motor function of R upper and lower limbs following stroke. Decreased ROM of all 4 limbs Results: Labs 03/19/25 05:30 03/19/25 05:30 Labs: Short CBC 03/18/25 Range/Units 10:50 WBC 19.8 H (3.8-10.6) Thou/mm3 Hgb 10.9 L (13.5-16.0) g/dL Hct 33.7 L (41.0-53.0) % Plt Count 238 (140-440) Thou/mm3 BMP 03/18/25 10:50 Sodium 136 Potassium 4.5 Chloride 101 Carbon Dioxide 24.4 BUN 29 H Creatinine 1.2 Glucose 173 H Calcium 8.4 Cardiac Enzymes 03/18/25 Range/Units 10:50 Troponin I < 0.020 (0.0-0.045) ng/mL Liver Function 03/18/25 Range/Units 10:50 Total Bilirubin 0.7 (0.3-1.2) mg/dL Direct Bilirubin 0.3 (0.0-0.3) mg/dL AST 121 H (0-34) U/L ALT 122 H (10-49) U/L Alkaline Phosphatase 190 H (46-116) U/L Albumin 3.5 (3.4-4.8) gm/dL Urine 03/18/25 Range/Units 11:58 Urine Color Yellow (Lt Yel-Yel) Urine Clarity Turbid A (Clear/Hazy) Urine pH 6.0 (5.0-7.0) Ur Specific [place] 1.030 (1.001-1.035) Urine Protein 2+ A (Neg - Trace) Urine Glucose (UA) Negative (Negative) ABG Interpretation ABG results: 03/18/25 10:50 VBG pH 7.39 VBG pCO2 41 VBG pO2 65 H VBG Base Excess 0 Quality Measures Quality Measures none Advance care planning discussed with:: patient Medications Home Medications and Allergies Home Medications ?Medication ?Instructions ?Recorded ?Confirmed ?Type tamsulosin 0.4 mg capsule 0.4 mg PO QDAY 12/28/20 03/19/25 History atorvastatin 10 mg tablet 1 tab PO HS 03/14/22 03/19/25 History oxybutynin chloride 5 mg tablet 5 mg PO QDAY 12/10/22 03/19/25 History ascorbic acid (vitamin C) 500 mg 500 mg PO QDAY 07/02/23 03/19/25 History tablet bisacodyl 10 mg rectal suppository 10 mg AL QDAY PRN Constipation 07/02/23 03/19/25 History (Dulcolax (bisacodyl)) hydrocodone 10 mg-acetaminophen 1 tab PO Q8H PRN Pain (Scale Score 07/02/23 03/19/25 History 325 mg tablet 4-6) sodium phosphates 19 gram-7 118 ml AL QDAY PRN Constipation 07/02/23 03/19/25 History gram/118 mL enema (Fleet Enema) acetaminophen 650 mg rectal 650 mg AL Q6H PRN fever >101.5 03/19/25 03/19/25 History suppository amlodipine 10 mg tablet (Norvasc) 10 mg PO QDAY 03/19/25 03/19/25 History docusate sodium 100 mg capsule 100 mg PO QDAY 03/19/25 03/19/25 History (Col-Rite) hydrocodone 5 mg-acetaminophen 325 1 tab PO Q6H PRN pain 03/19/25 03/19/25 History mg tablet hyoscyamine sulfate 0.125 mg 0.125 mg PO Q4H PRN secretions 03/19/25 03/19/25 History disintegrating tablet lacosamide 200 mg capsule,extended 200 mg PO 2XD 03/19/25 03/19/25 History release 24 hr levetiracetam 750 mg tablet 500 mg PO 2XD 03/19/25 03/19/25 History lorazepam 0.5 mg tablet 0.5 mg PO Q6H PRN anxiety 03/19/25 03/19/25 History morphine 20 mg/5 mL (4 mg/mL) oral 2 mg PO Q4H PRN pain or SOB 03/19/25 03/19/25 History solution multivitamin (Daily Multi-Vitamin 1 tab PO QAM 03/19/25 03/19/25 History tablet) phenytoin sodium extended 100 mg 100 mg PO QDAY 03/19/25 03/19/25 History capsule (Dilantin Extended) Allergies Allergy/AdvReac Type Severity Reaction Status Date / Time No Known Allergies Allergy Verified 03/15/24 10:00 Visit Medications Acetaminophen (Acetaminophen 325 Mg Tablet) 650 mg PO Q6H PRN PRN Reason: Fever >100 or pain 1-3 Stop: 04/17/25 17:28 Enoxaparin Sodium (Enoxaparin Sod Inj 40 Mg/0.4 Ml Syringe) 40 mg SC QDAY SHILO Stop: 04/02/25 08:59 Piperacillin/Tazobactam/Dextrose (Zosyn) 3.375 gm in 50 mls @ 12.5 mls/hr IV Q8HR SHILO Stop: 03/25/25 21:59 Piperacillin/Tazobactam/Dextrose (Zosyn) 3.375 gm in 50 mls @ 100 mls/hr IV X1 ONE Stop: 03/18/25 18:29 Levetiracetam (Levetiracetam 250 Mg Tablet) 750 mg PO BID SHILO Stop: 04/17/25 20:59 Pantoprazole Sodium (Pantoprazole 40 Mg Tablet) 40 mg PO QDAY SHILO Stop: 04/18/25 08:59 Sennosides (Senna Tablet) 1 tab PO DAILY PRN; Protocol PRN Reason: CONSTIPATION Stop: 04/17/25 17:49 Discontinued Medications Acetaminophen (Ofirmev Inj) 1,000 mg in 100 mls @ 250 mls/hr IV X1 ONE Stop: 03/18/25 10:54 Last Infusion: 03/18/25 11:42 Dose: Infused Ceftriaxone Sodium/Dextrose (Rocephin/D5w 1gm Iv Premix) 1 gm in 50 mls @ 100 mls/hr IV X1 ONE Stop: 03/18/25 11:00 Last Infusion: 03/18/25 11:48 Dose: Infused Sodium Chloride (Ns) 1,000 mls @ 999 mls/hr IV .Q1H1M ONE Stop: 03/18/25 11:31 Last Infusion: 03/18/25 13:30 Dose: Infused Sodium Chloride (Ns) 1,000 mls @ 999 mls/hr IV .Q1H1M ONE Stop: 03/18/25 11:44 Last Infusion: 03/18/25 13:45 Dose: Infused Ketorolac Tromethamine (Ketorolac Inj 30 Mg/Ml Vial) 15 mg IVP X1 ONE Stop: 03/18/25 10:32 Last Admin: 03/18/25 11:18 Dose: 15 mg Ondansetron HCl (Ondansetron Inj 2 Mg/Ml Inj 2 Ml) 4 mg IVP X1 ONE; Protocol Stop: 03/18/25 10:32 Last Admin: 03/18/25 11:17 Dose: 4 mg Assessment & Plan Plan Assessment: 69 year old male with past medical history for seizures, hyperlipidemia, CVA admitted due to sepsis likely secondary to UTI and community-acquired PNA. Admitted for IV abx. #Sepsis #UTI #Pyelonepritis #Community acquired pneumonia Systemic signs present Fever. Tachycardia. Tachypnea. Toxic appearing WBC 19, Hgb 10.9, Plt 238 Procalcitonin 1.51 ESR 71 CMP: Na 136, K 4.5, Glucose 173, BUN/Cr 24, Glucose 173 LFTs: AST 121, ALT 122, Alk Phos 190 U/A: RBC 337, WBC 337, Leuk + CXR: Suspicious for early left base pneumonia Urine Cx pending Blood Cx pending COVID/Flu pending Plan Zosyn 3.375g q8h Consider ordering CT abdomen to evaluate infection and chronic hematuria F/U urine Cx, blood Cx O2 as needed #Liver derangement LFTs: AST 121, ALT 122, Alk Phos 190 Plan Trend LFTs #Hx of Seizures -On home dose Keppra 750mg BID #Constipation -Senna #Hyperlipidemia - Med recon pending - F/U lipid profile Health Maintenance: Diet: regular GI prophylaxis: protonix DVT prophylaxis: enoxaparin Antibiotics: ceftriaxone CODE STATUS: full Disposition: telemetry Case discussed with my attending Dr. Yoseph Ragsdale MD PGY-1 Attending Provider Attestation/Addendum 69-year-old male patient from a convalescent facility past medical history of CVA with right hemiparesis, seizure, hyperlipidemia, bedbound admitted for sepsis secondary to pyelonephritis. Patient has chronic constipation. He has abnormal liver functions. Patient has seen tachycardic. He is weak. He has poorly nourished. Patient is arousable. He answers appropriately. He was able to follow simple commands. He was admitted for IV antibiotic treatment. Will check culture results. The patient has chronic Arevalo catheter. This may be related to UTI. I discussed with and supervised the resident physician who took care of this patient. I agree with the assessment and plan as above..
[2025-03-18] MEDS: PIPER/TAZO 3.375 GM PREMIX 3.375 GM/50 ML BAG IV ×2 (19:29→22:20)
--- NOTE | 2025-03-18 21:14 | XR_ITS ---
Examination: Abdomen sonogram, complete Date and time of exam: March 18, 8025, 10:39 AM INDICATIONS: Generalized abdominal pain beginning 2 days ago. Technique: Multiple real-time grayscale transabdominal sonographic images of the abdomen have been obtained. Findings: Small gallstones versus gallbladder sludge Gallbladder wall 0.3 cm Common bile duct 0.6 cm no stones Pancreas aorta obscured by bowel gas. Liver 13.8 cm smooth contour Normal hepatopedal portal venous and Patent IVC Right kidney 9.1 cm renal cortex 20.3 cm Left kidney 10.6 cm renal cortex is 1.1 cm Lower pole left renal cyst 18 mm Spleen 9.9 cm IMPRESSION: Small gallstones versus gallbladder sludge No common bile duct stones
[2025-03-19] VITALS (11 sets, daily range): BP systolic 108–136; BP diastolic 61–89; PULSE 94–107; RESP 15–20; TEMP 36.7–37.4; O2SAT 92–100; BMI 25.9
[2025-03-19] MEDS: HYDROcodone/APAP 5/325 TABLET 1 TAB PO ×3 (01:05→18:32)
--- NOTE | 2025-03-19 03:05 | PRELIM_ITS ---
Ultrasound Abdomen with Doppler and wave Doppler spectral analysis. March 18, 2025 at 2239 hours Clinical history: ast alt elevation. Technique: Grayscale and color flow images of the abdomen are provided. Hepatic and portal veins were also imaged with color flow images. Comparison: None. Findings: The liver is normal in echogenicity. No intrahepatic biliary ductal dilatation. Gallstone. No gallbladder wall thickening or pericholecystic fluid is demonstrated. The common bile duct is normal in caliber at 6.2 mm. No free fluid is demonstrated on the submitted images. The pancreas was not visualized. The right kidney measures 9.1 cm. The left kidney measures 10.6 cm. There is no hydronephrosis and the corticomedullary differentiation is maintained. Small simple cyst in the left kidney. The spleen is normal measuring 9.9 cm in length. The abdominal aorta and inferior vena cava to the extent visualized are within normal limits. The portal vein is patent with hepatopetal flow normal wave Doppler spectral analysis. Roper sign is not available at the time of this report. Impression: Gallstones without evidence of acute cholecystitis. Report Electronically Signed By: Noman Banuelos 03/19/2025 3:05:05 AM [EST]
[2025-03-19] MEDS: PIPER/TAZO 3.375 GM PREMIX 3.375 GM/50 ML BAG IV ×3 (05:09→21:12)
[2025-03-19 06:18] LABS: Basophils # (Auto) 0.1 Thou/mm3 (0.0-0.2); Basophils % (Auto) 0 % (0-2.5); Eosinophils # (Auto) 0.0 Thou/mm3 (0.0-0.5); Eosinophils % (Auto) 0 % (0-10); Hematocrit 32.9 % (41.0-53.0); Hemoglobin 10.1 g/dL (13.5-16.0); Immature Granulocytes Auto 0.15 Thou/mm3 (0.00-0.00); Lymphocytes # (Auto) 1.1 Thou/mm3 (1.0-4.8); Lymphocytes % (Auto) 8 % (10-50); Mean Corpuscular HGB Conc 30.7 g/dl (31.0-37.0); Mean Corpuscular Hemoglobin 27.3 pg (25.0-35.0); Mean Corpuscular Volume 89 fL (80-100); Monocytes # (Auto) 1.0 Thou/mm3 (0.0-0.8); Monocytes % (Auto) 8 % (0-12); Neutrophils # (Auto) 11.1 Thou/mm3 (1.8-7.7); Neutrophils % (Auto) 82 % (37-80); Nucleated Red Blood Cell # 0.00 Thou/mm3 (0.00-0.00); Nucleated Red Blood Cell % 0 /100 WBC (0); Platelet Count 212 Thou/mm3 (140-440); RDW Standard Deviation 57.0 fL (35.1-43.9); Red Blood Count 3.70 Miln/mm3 (4.50-5.90); White Blood Count 13.5 Thou/mm3 (3.8-10.6)
[2025-03-19 06:39] LABS: INR 1.2 (0.9-1.3); Prothrombin Time 12.9 Seconds (9.0-12.2)
[2025-03-19 06:54] LABS: Alanine Aminotransferase 100 U/L (10-49); Albumin, Serum 3.2 gm/dL (3.4-4.8); Albumin/Globulin Ratio 1.1 (1.2-2.2); Alkaline Phosphatase 157 U/L (46-116); Anion Gap 11 (7-16); Aspartate Amino Transferase 103 U/L (0-34); BUN/Creatinine Ratio 31 Ratio (12-20); Bilirubin,Total 0.5 mg/dL (0.3-1.2); Blood Urea Nitrogen 31 mg/dL (9-23); Calcium 8.3 mg/dL (8.3-10.6); Calcium (Corrected) 8.9 mg/dL (8.5-10.1); Carbon Dioxide 23.1 mMol/L (20.0-31.0); Chloride 105 mMol/L (98-107); Creatinine (Component) 1.0 mg/dL (0.6-1.3); Estimated Creatinine Clearance 63.7 mL/min (>60); Globulin 2.8 gm/dL (2.3-3.5); Glucose 134 mg/dL (74-106); Magnesium 2.0 mg/dL (1.6-2.6); Osmolality,Calculated 286 (275-295); Phosphorous 3.1 mg/dL (2.4-5.1); Potassium 4.6 mMol/L (3.4-5.1); Sodium 139 mMol/L (136-145); Total Protein 6.0 gm/dL (5.7-8.2); eGFR > 60 See Note
[2025-03-19] MEDS: PANTOPRAZOLE 40 MG TABLET PO (08:00)
[2025-03-19] MEDS: ENOXAPARIN SOD INJ 40 MG/0.4 ML SYRINGE SC (08:00)
[2025-03-19 08:58] LABS: Cardiac Risk Estimate 3.3 RATIO (4.0-6.7); Cholesterol 95 mg/dL (132-200); HDL Cholesterol 29 mg/dL (40-60); LDL Cholesterol,Calculated 47 mg/dL (0-130); Triglycerides 97 mg/dL (30-150)
--- NOTE | 2025-03-19 10:00 | CHAP ---
Patient was visited by the Spiritual care Volunteer who prayed for them. (Volunteer was in the hospital from 09:13-10:00)
[2025-03-19 12:40] LABS: Phenytoin (Dilantin) 11.4 mcg/mL
--- NOTE | 2025-03-19 13:36 | PD.RESPRO ---
Documentation for date of: 03/19/25 Subjective Subjective Interval history: Patient seen today at bedside. No overnight events. Patient continues to have altered mental status but answering more questions than yesterday. Patient comes from [facility], his baseline mentation before seizure episode on February 16 2025 was A&O x 4, socialized with everyone, was able to sit himself up and going out with family. After he was transferred out to [place] for further eval, he was found to have space-occuying lesion in brain and had tumor surgery. He returned back to nursing facility on March 04 2025 and was never the same again, lots of crying episodes, not verbalizing much or interacting with nurses as he had been. Exam Vital Signs Temp Pulse Resp BP Pulse Ox O2 Del Method O2 Flow Rate 99.3 F 107 H 17 110/65 98 Nasal Cannula 1 03/19/25 12:00 03/19/25 12:00 03/19/25 12:03/19/25 12:00 03/19/25 12:03/19/25 12:03/19/25 12:00 Narrative Exam General: Lethargic. A&O x 1 (person). Not good historian. HEENT: Conjunctivae and lids clear. No nasal congestion. Neck supple Heart: Sinus tachycardia. S1 +S2. No murmurs/rubs/gallops Lungs: No respiratory distress. Good air movement. No severe rhonchi, wheezing, rales. Abdomen: Bowel sounds present. Soft. Tender to R and L flanks Skin: Warm and dry. Neuro: No focal deficits. Reduced motor function of R upper and lower limbs following stroke. Decreased ROM of all 4 limbs Objective Labs 03/19/25 05:30 03/19/25 05:30 Labs: Laboratory Results - last 24 hr 03/18/25 03/19/25 03/19/25 10:50 05:30 11:45 WBC 13.5 H D RBC 3.70 L Hgb 10.1 L Hct 32.9 L MCV 89 MCH 27.3 MCHC 30.7 L RDW Std Deviation 57.0 H Plt Count 212 Neut % (Auto) 82 H Lymph % (Auto) 8 L [place] % (Auto) 8 Eos % (Auto) 0 Baso % (Auto) 0 Neut # (Auto) 11.1 H Lymph # (Auto) 1.1 [place] # (Auto) 1.0 H Eos # (Auto) 0.0 Baso # (Auto) 0.1 Immature Gran # (Auto) 0.15 H Absolute Nucleated RBC 0.00 Immature Gran % 1 H Nucleated RBC % 0 Smear Path Review Sent to Pathologist PT 12.9 H INR 1.2 Sodium 139 Potassium 4.6 Chloride 105 Carbon Dioxide 23.1 Anion Gap 11 BUN 31 H Creatinine 1.0 Estim Creat Clear Calc 63.7 eGFR > 60 BUN/Creatinine Ratio 31 H Glucose 134 H Calculated Osmolality 286 Calcium 8.3 Corrected Calcium 8.9 Phosphorus 3.1 Magnesium 2.0 Total Bilirubin 0.5 AST 103 H ALT 100 H Alkaline Phosphatase 157 H D Total Protein 6.0 Albumin 3.2 L Globulin 2.8 Albumin/Globulin Ratio 1.1 L Triglycerides 97 Cholesterol 95 L LDL Cholesterol, Calc 47 HDL Cholesterol 29 L Cholesterol/HDL Ratio 3.3 L Phenytoin 11.4 ABG Interpretation ABG results: 03/18/25 10:50 VBG pH 7.39 VBG pCO2 41 VBG pO2 65 H VBG Base Excess 0 Quality Measures Quality Measures none Advance care planning discussed with:: patient Assessment & Plan Assessment Current Active Medications: Generic Name Dose Route Start Last Admin Trade Name Freq PRN Reason Stop Dose Admin Acetaminophen 650 mg 03/18/25 17:29 Acetaminophen 325 Mg Tablet PO 04/17/25 17:28 Q6H PRN Fever >100 or pain 1-3 Hydrocodone Bitart/Acetaminophen 1 tab 03/18/25 21:15 03/19/25 08:00 Hydrocodone/Apap 5/325 Tablet PO 03/23/25 21:14 1 tab Q6HR PRN Administration BREAKTHROUGH PAIN Protocol Atorvastatin Calcium 10 mg 03/19/25 21:00 Atorvastatin Calcium 10 Mg Tablet PO 04/18/25 20:59 HS SHILO Enoxaparin Sodium 40 mg 03/19/25 09:00 03/19/25 08:00 Enoxaparin Sod Inj 40 Mg/0.4 Ml Syringe SC 04/02/25 08:59 40 mg QDAY SHILO Administration Piperacillin/Tazobactam/Dextrose 3.375 gm in 50 mls @ 12.5 mls/hr 03/18/25 22:00 03/19/25 05:09 Zosyn IV 03/25/25 21:59 12.5 mls/hr Q8HR SHILO Administration Levetiracetam 750 mg 03/18/25 21:00 03/19/25 08:00 Levetiracetam 250 Mg Tablet PO 04/17/25 20:59 750 mg BID SHILO Administration Home Medication- 200 mg 03/19/25 11:00 03/19/25 11:03 Please Speak With PO 04/18/25 10:59 Not Given Patient Caregiver To BID SHILO Have Rx Brought To [facility] Pantoprazole Sodium 40 mg 03/19/25 09:00 03/19/25 08:00 Pantoprazole 40 Mg Tablet PO 04/18/25 08:59 40 mg QDAY SHILO Administration Phenytoin 300 mg 03/19/25 21:00 Phenytoin 100 Mg Capsr PO 04/18/25 20:59 HS [facility] Sennosides 1 tab 03/18/25 17:50 Senna Tablet PO 04/17/25 17:49 DAILY PRN CONSTIPATION Protocol Plan 69 year old male with past medical history for seizures, hyperlipidemia, CVA admitted due to sepsis likely secondary to UTI and community-acquired PNA. Admitted for IV abx. #Sepsis - improving #Complicated UTI #Community acquired pneumonia Presented with systemic signs present Fever. Tachycardia. Tachypnea. Toxic appearing. Patient has chronic Arevalo catheter. This may be related to UTI. WBC 3.5, Hgb 10.1, Plt 212 Lactate: 1.8 Procalcitonin 1.51 ESR 71 LFTs: AST 103 (121), ALT 100 (122), Alk Phos 157 (190) U/A: RBC 337, WBC 337, Leuk + CXR: Suspicious for early left base pneumonia Urine Cx pending Blood Cx pending COVID/Flu pending Plan Zosyn 3.375g q6h F/U urine Cx, blood Cx Lactate trend (2.1 -> 1.8) O2 as needed #Transaminitis #Ischemic hepatitis DDx: NAFLD, Hepatitis, Cirrhosis, Anti-seizure meds LFTs: AST 103 (121), ALT 100 (122), Alk Phos 157 (190), Albumin 3.2 (3.5), Coag: PT 12.9, INR 1.2 Albumin 3.2 Plan Trend LFTs Hepatitis acute panel ordered #Hx of Seizures - On home dose Keppra 500mg BID - Restarted on Lacosamide 200mg PO BID and Phenytoin 300mg today #Constipation -Senna #Hyperlipidemia Chol 95, LDL 47 Plan -Lipitor 10mg qHS Health Maintenance: Diet: regular GI prophylaxis: protonix DVT prophylaxis: enoxaparin Antibiotics: Zosyn CODE STATUS: full Disposition: telemetry Case discussed with my attending Dr. Yoseph Ragsdale MD PGY-1 Attending Provider Attestation/Addendum 69-year-old patient with history of CVA, recent frontal lobe meningioma excision. Patient was admitted for UTI, sepsis. He has hypertension. The patient is arousable. He answers to questions however he is confused. He is not oriented to time and place. Will request records to review from convalescent facility. I discussed with and supervised the resident physician who took care of this patient. I agree with the assessment and plan as above.
[2025-03-19] MEDS: PHENYTOIN 100 MG CAPSR 300 MG PO (21:12)
[2025-03-19] MEDS: ATORVASTATIN CALCIUM 10 MG TABLET PO (21:12)
[2025-03-19] MEDS: LACOSAMIDE 50 MG TABLET 200 MG PO (21:12)
[2025-03-19 22:14] LABS: Hepatitis A Antibody IgM Non Reactive (Non React); Hepatitis B Core Antibody IgM Non Reactive (Non React); Hepatitis B Surface Antigen Non Reactive (Non React); Hepatitis C Antibody Reactive (Non React)
[2025-03-20] VITALS (11 sets, daily range): BP systolic 96–131; BP diastolic 67–77; PULSE 72–101; RESP 17–20; TEMP 36.7–36.8; O2SAT 94–97; BMI 25.9
[2025-03-20] MEDS: PIPER/TAZO 3.375 GM PREMIX 3.375 GM/50 ML BAG IV ×4 (05:36→23:56)
[2025-03-20 06:21] LABS: Basophils # (Auto) 0.0 Thou/mm3 (0.0-0.2); Basophils % (Auto) 0 % (0-2.5); Eosinophils # (Auto) 0.1 Thou/mm3 (0.0-0.5); Eosinophils % (Auto) 1 % (0-10); Hematocrit 27.4 % (41.0-53.0); Immature Granulocytes Auto 0.16 Thou/mm3 (0.00-0.00); Lymphocytes # (Auto) 1.4 Thou/mm3 (1.0-4.8); Lymphocytes % (Auto) 12 % (10-50); Mean Corpuscular HGB Conc 31.4 g/dl (31.0-37.0); Mean Corpuscular Hemoglobin 27.6 pg (25.0-35.0); Mean Corpuscular Volume 88 fL (80-100); Monocytes # (Auto) 1.0 Thou/mm3 (0.0-0.8); Monocytes % (Auto) 9 % (0-12); Neutrophils # (Auto) 9.2 Thou/mm3 (1.8-7.7); Neutrophils % (Auto) 77 % (37-80); Nucleated Red Blood Cell # 0.00 Thou/mm3 (0.00-0.00); Nucleated Red Blood Cell % 0 /100 WBC (0); Platelet Count 223 Thou/mm3 (140-440); RDW Standard Deviation 54.9 fL (35.1-43.9); Red Blood Count 3.12 Miln/mm3 (4.50-5.90); White Blood Count 11.9 Thou/mm3 (3.8-10.6)
[2025-03-20 06:26] LABS: Hemoglobin 8.6 g/dL (13.5-16.0)
[2025-03-20 06:51] LABS: Alanine Aminotransferase 90 U/L (10-49); Albumin, Serum 2.9 gm/dL (3.4-4.8); Albumin/Globulin Ratio 1.1 (1.2-2.2); Alkaline Phosphatase 141 U/L (46-116); Anion Gap 9 (7-16); Aspartate Amino Transferase 110 U/L (0-34); BUN/Creatinine Ratio 29 Ratio (12-20); Bilirubin,Total 0.5 mg/dL (0.3-1.2); Blood Urea Nitrogen 26 mg/dL (9-23); Calcium 8.2 mg/dL (8.3-10.6); Calcium (Corrected) 9.1 mg/dL (8.5-10.1); Carbon Dioxide 24.4 mMol/L (20.0-31.0); Chloride 105 mMol/L (98-107); Creatinine (Component) 0.9 mg/dL (0.6-1.3); Estimated Creatinine Clearance 64.9 mL/min (>60); Globulin 2.7 gm/dL (2.3-3.5); Glucose 86 mg/dL (74-106); Magnesium 2.0 mg/dL (1.6-2.6); Osmolality,Calculated 279 (275-295); Phosphorous 3.0 mg/dL (2.4-5.1); Potassium 4.1 mMol/L (3.4-5.1); Sodium 138 mMol/L (136-145); Total Protein 5.6 gm/dL (5.7-8.2); eGFR > 60 See Note
[2025-03-20] MEDS: PANTOPRAZOLE 40 MG TABLET PO (08:48)
[2025-03-20] MEDS: ENOXAPARIN SOD INJ 40 MG/0.4 ML SYRINGE SC (08:49)
[2025-03-20] MEDS: LACOSAMIDE 50 MG TABLET 200 MG PO ×2 (08:49→20:23)
--- NOTE | 2025-03-20 12:07 | PC.SS ---
Kj Pryor is a 69-year-old male admitted for Sepsis. 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 Pt is bed bound at baseline and max assist. Noman reports he is the pts DM in case of an emergency. Pt will need transport at the time of dc and possess insurance coverage for [employer]. SS will remain available for any additional needs. DC plan: [facility] DM: BrotherNoman
--- NOTE | 2025-03-20 13:31 | ESPR_ITS ---
<Statement entered by Suzette Longo MD - 03/20/25 21:36> I have reviewed the note and agree with the resident's assessment & plan with exceptions as below. I have personally reviewed labs, imaging, home meds/prior records, examined the patient, formulated and discussed management plan with the IM team. Pt examined at bedside, it was learned that pt had crainotomy for tumor that was producing mass effect and seizures at [place], will obtain old record. Pt pending Urine culture, continuing IV Abx. Pt is also on hospice at home, will reorder hospice. Repeat chemistry and Hematology in AM. Suzette Longo, PGY-2 Internal Medicine Documentation for date of: 03/20/25 Subjective Subjective Interval history: Patient seen today at bedside. No overnight events. No new complaints. Denies chest pain, sob, abdominal pain, nausea, vomiting, subjective fevers. Patient had craniotomy and resection of large right frontal tumor on 02/20/25. Patholgy consistent with meningioma. Exam Vital Signs Temp Pulse Resp BP Pulse Ox O2 Del Method O2 Flow Rate 98.2 F 96 18 131/77 H 96 Nasal Cannula 1 03/20/25 12:00 03/20/25 12:00 03/20/25 12:00 03/20/25 12:00 03/20/25 12:00 03/20/25 12:03/20/25 12:00 Narrative Exam General: Lethargic. A&O x 1 (person). Not good historian. HEENT: Conjunctivae and lids clear. No nasal congestion. Neck supple Heart: Sinus tachycardia. S1 +S2. No murmurs/rubs/gallops Lungs: No respiratory distress. Good air movement. No severe rhonchi, wheezing, rales. Abdomen: Bowel sounds present. Soft. Tender to R and L flanks Skin: Warm and dry. Neuro: No focal deficits. Reduced motor function of R upper and lower limbs following stroke. Decreased ROM of all 4 limbs Objective Labs 03/20/25 05:46 03/20/25 05:46 Labs: Laboratory Results - last 24 hr 03/19/25 03/20/25 05:30 05:46 WBC 11.9 H RBC 3.12 L Hgb 8.6 L Hct 27.4 L MCV 88 MCH 27.6 MCHC 31.4 RDW Std Deviation 54.9 H Plt Count 223 Neut % (Auto) 77 Lymph % (Auto) 12 [place] % (Auto) 9 Eos % (Auto) 1 Baso % (Auto) 0 Neut # (Auto) 9.2 H Lymph # (Auto) 1.4 [place] # (Auto) 1.0 H Eos # (Auto) 0.1 Baso # (Auto) 0.0 Immature Gran # (Auto) 0.16 H Absolute Nucleated RBC 0.00 Immature Gran % 1 H Nucleated RBC % 0 Sodium 138 Potassium 4.1 D Chloride 105 Carbon Dioxide 24.4 Anion Gap 9 BUN 26 H Creatinine 0.9 Estim Creat Clear Calc 64.9 eGFR > 60 BUN/Creatinine Ratio 29 H Glucose 86 Calculated Osmolality 279 Calcium 8.2 L Corrected Calcium 9.1 Phosphorus 3.0 Magnesium 2.0 Total Bilirubin 0.5 AST 110 H ALT 90 H Alkaline Phosphatase 141 H Total Protein 5.6 L Albumin 2.9 L Globulin 2.7 Albumin/Globulin Ratio 1.1 L Hepatitis A IgM Ab Non Reactive Hep Bs Antigen Non Reactive Hep B Core IgM Ab Non Reactive Hepatitis C Antibody Reactive A ABG Interpretation ABG results: 03/18/25 10:50 VBG pH 7.39 VBG pCO2 41 VBG pO2 65 H VBG Base Excess 0 Quality Measures Quality Measures none Advance care planning discussed with:: patient Assessment & Plan Assessment Current Active Medications: Generic Name Dose Route Start Last Admin Trade Name Freq PRN Reason Stop Dose Admin Acetaminophen 650 mg 03/18/25 17:29 Acetaminophen 325 Mg Tablet PO 04/17/25 17:28 Q6H PRN Fever >100 or pain 1-3 Hydrocodone Bitart/Acetaminophen 1 tab 03/18/25 21:15 03/19/25 18:32 Hydrocodone/Apap 5/325 Tablet PO 03/23/25 21:14 1 tab Q6HR PRN Administration BREAKTHROUGH PAIN Protocol Atorvastatin Calcium 10 mg 03/19/25 21:00 03/19/25 21:12 Atorvastatin Calcium 10 Mg Tablet PO 04/18/25 20:59 10 mg HS SHILO Administration Enoxaparin Sodium 40 mg 03/19/25 09:00 03/20/25 08:49 Enoxaparin Sod Inj 40 Mg/0.4 Ml Syringe SC 04/02/25 08:59 40 mg QDAY SHILO Administration Piperacillin/Tazobactam/Dextrose 3.375 gm in 50 mls @ 12.5 mls/hr 03/20/25 06:00 03/20/25 11:17 Zosyn IV 03/27/25 05:59 12.5 mls/hr Q6HR SHILO Administration Lacosamide 200 mg 03/19/25 14:07 03/20/25 08:49 Lacosamide 50 Mg Tablet PO 04/18/25 10:59 200 mg BID SHILO Administration Levetiracetam 750 mg 03/18/25 21:00 03/20/25 08:48 Levetiracetam 250 Mg Tablet PO 04/17/25 20:59 750 mg BID SHILO Administration Pantoprazole Sodium 40 mg 03/19/25 09:00 03/20/25 08:48 Pantoprazole 40 Mg Tablet PO 04/18/25 08:59 40 mg QDAY SHILO Administration Phenytoin 300 mg 03/19/25 21:00 03/19/25 21:12 Phenytoin 100 Mg Capsr PO 04/18/25 20:59 300 mg HS SHILO Administration Sennosides 1 tab 03/18/25 17:50 Senna Tablet PO 04/17/25 17:49 DAILY PRN CONSTIPATION Protocol Plan Assessment 69 year old male with past medical history for seizures, hyperlipidemia, CVA admitted due to sepsis likely secondary to UTI and community-acquired PNA. Admitted for IV abx. #Sepsis - resolved #Complicated UTI #Community acquired pneumonia Presented with systemic signs present Fever. Tachycardia. Tachypnea. Toxic appearing. Patient has chronic Arevalo catheter. This may be related to UTI. WBC 11.9 (13.5), Hgb 8.6 (10.1), Plt 223 (212) Lactate: 1.8 Procalcitonin 1.51 ESR 71 U/A: RBC 337, WBC 337, Leuk + CXR: Suspicious for early left base pneumonia Urine Cx sent 03/19/25 Blood Cx no growth after 48h Plan Zosyn 3.375g q6h Urine Cx pending (sent 03/19/25) O2 as needed #Transaminitis #Hepatitis C positive #Ischemic hepatitis DDx: NAFLD, Hepatitis, Cirrhosis, Anti-seizure meds Hepatis C positive LFTs: AST 110, ALT 90, Alk Phos 141, Albumin 2.9 Coag: PT 12.9, INR 1.2 Plan Trend LFTs #Hx of meningioma Underwent craniotomy and resection of large right frontal tumor on 02/20/25 at [facility]. Patholgy was consistent with meningioma. Plan - F/U Neurology outpatient for continued care #Hx of Seizures - On home dose Keppra 500mg BID - Restarted on Lacosamide 200mg PO BID and Phenytoin 300mg #Constipation -Senna #Hyperlipidemia Chol 95, LDL 47 Plan -Lipitor 10mg qHS Health Maintenance: Diet: regular GI prophylaxis: protonix DVT prophylaxis: enoxaparin Antibiotics: Zosyn CODE STATUS: full Disposition: telemetry Case discussed with my attending Dr. Hameed and senior resident Dr. Qing Ragsdale MD PGY-1 Attending Provider Attestation/Addendum 69-year-old male patient with history of CVA, recent right frontal lobe tumor resection admitted for UTI sepsis. The patient is on IV antibiotics. He has seizure disorder currently on lacosamide, Keppra and phenytoin. No seizure recurrence reported. The patient is resting when we made rounds today. I discussed with and supervised the resident physician who took care of this patient. I agree with the assessment and plan as above.
--- NOTE | 2025-03-20 14:02 | PC.PT ---
PT eval only. 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 RN made aware.
--- NOTE | 2025-03-20 16:38 | PC.SS ---
Rounding: on IV ABX, DC plan back to [facility]
[2025-03-20] MEDS: PHENYTOIN 100 MG CAPSR 300 MG PO (20:23)
[2025-03-20] MEDS: ATORVASTATIN CALCIUM 10 MG TABLET PO (20:23)
[2025-03-20] MEDS: HYDROcodone/APAP 5/325 TABLET 1 TAB PO (20:29)
[2025-03-21] VITALS (13 sets, daily range): BP systolic 110–143; BP diastolic 66–94; PULSE 70–101; RESP 14–94; TEMP 36.1–36.8; O2SAT 91–95; BMI 25.7
[2025-03-21] MEDS: PIPER/TAZO 3.375 GM PREMIX 3.375 GM/50 ML BAG IV ×3 (05:45→17:45)
[2025-03-21 06:34] LABS: Basophils # (Auto) 0.1 Thou/mm3 (0.0-0.2); Basophils % (Auto) 0 % (0-2.5); Eosinophils # (Auto) 0.1 Thou/mm3 (0.0-0.5); Eosinophils % (Auto) 1 % (0-10); Hematocrit 29.7 % (41.0-53.0); Hemoglobin 9.3 g/dL (13.5-16.0); Immature Granulocytes Auto 0.24 Thou/mm3 (0.00-0.00); Lymphocytes # (Auto) 1.4 Thou/mm3 (1.0-4.8); Lymphocytes % (Auto) 11 % (10-50); Mean Corpuscular HGB Conc 31.3 g/dl (31.0-37.0); Mean Corpuscular Hemoglobin 27.2 pg (25.0-35.0); Mean Corpuscular Volume 87 fL (80-100); Monocytes # (Auto) 1.2 Thou/mm3 (0.0-0.8); Monocytes % (Auto) 10 % (0-12); Neutrophils # (Auto) 9.0 Thou/mm3 (1.8-7.7); Neutrophils % (Auto) 75 % (37-80); Nucleated Red Blood Cell # 0.00 Thou/mm3 (0.00-0.00); Nucleated Red Blood Cell % 0 /100 WBC (0); Platelet Count 275 Thou/mm3 (140-440); RDW Standard Deviation 54.0 fL (35.1-43.9); Red Blood Count 3.42 Miln/mm3 (4.50-5.90); White Blood Count 11.9 Thou/mm3 (3.8-10.6)
[2025-03-21 06:50] LABS: Alanine Aminotransferase 73 U/L (10-49); Albumin, Serum 3.1 gm/dL (3.4-4.8); Albumin/Globulin Ratio 1.1 (1.2-2.2); Alkaline Phosphatase 258 U/L (46-116); Anion Gap 14 (7-16); Aspartate Amino Transferase 92 U/L (0-34); BUN/Creatinine Ratio 21 Ratio (12-20); Bilirubin,Total 0.7 mg/dL (0.3-1.2); Blood Urea Nitrogen 17 mg/dL (9-23); Calcium 8.4 mg/dL (8.3-10.6); Calcium (Corrected) 9.1 mg/dL (8.5-10.1); Carbon Dioxide 21.6 mMol/L (20.0-31.0); Chloride 103 mMol/L (98-107); Creatinine (Component) 0.8 mg/dL (0.6-1.3); Estimated Creatinine Clearance 73.0 mL/min (>60); Globulin 2.8 gm/dL (2.3-3.5); Glucose 67 mg/dL (74-106); Magnesium 1.8 mg/dL (1.6-2.6); Osmolality,Calculated 277 (275-295); Phosphorous 3.1 mg/dL (2.4-5.1); Potassium 3.9 mMol/L (3.4-5.1); Sodium 139 mMol/L (136-145); Total Protein 5.9 gm/dL (5.7-8.2); eGFR > 60 See Note
[2025-03-21] MEDS: LACOSAMIDE 50 MG TABLET 200 MG PO ×2 (09:13→20:26)
[2025-03-21] MEDS: PANTOPRAZOLE 40 MG TABLET PO (09:13)
[2025-03-21] MEDS: ENOXAPARIN SOD INJ 40 MG/0.4 ML SYRINGE SC (09:13)
--- NOTE | 2025-03-21 12:21 | PC.SS ---
Updated clinicals sent to [facility] and [facility]
--- NOTE | 2025-03-21 13:07 | ESPR_ITS ---
<Statement entered by Suzette Longo MD - 03/21/25 21:57> I have reviewed the note and agree with the resident's assessment & plan with exceptions as below. I have personally reviewed labs, imaging, home meds/prior records, examined the patient, formulated and discussed management plan with the IM team. Pt examined at bedside today. He continues to not complete his meals, consulted RD and started Drobaninol for appetite. RD recommends Ensure Protein BID and Mechanical Dysphagia 2 regular diet. Pending Urine Culture to result, on IV Zosyn. Will deescalate abx upon culture sensitives. Anticipate DC within next 24-48 hrs. Pt is on hospice. Repeat hematology and chemistry iN AM. Suzette Longo, PGY-2 Internal Medicine Documentation for date of: 03/21/25 Subjective Subjective Interval history: Patient examined at bedtime. No overnight events. Appears confused. Alert only to person. Appears more lethargic compared to yesterday. Not eating, have not had any food in the past 24 hours. AM glucose was 67 today. Patient does not verbalize much, tends to answer in one-word. Exam Vital Signs Temp Pulse Resp BP Pulse Ox O2 Del Method O2 Flow Rate 98.0 F 92 18 143/94 H 94 L Room Air 1 03/21/25 12:00 03/21/25 12:00 03/21/25 12:00 03/21/25 12:00 03/21/25 12:00 03/21/25 08:00 03/20/25 19:46 Narrative Exam General: Lethargic. A&O x 1 (person). Not good historian. HEENT: Conjunctivae and lids clear. No nasal congestion. Neck supple Heart: S1 +S2. No murmurs/rubs/gallops Lungs: No respiratory distress. Good air movement. No severe rhonchi, wheezing, rales. Abdomen: Bowel sounds present. Soft. Tender to R and L flanks Skin: Warm and dry. Neuro: No focal deficits. Reduced motor function of R upper and lower limbs following stroke. Decreased ROM of all 4 limbs Objective Labs 03/22/25 05:36 03/22/25 05:36 Labs: Laboratory Results - last 24 hr 03/21/25 05:35 WBC 11.9 H RBC 3.42 L Hgb 9.3 L Hct 29.7 L MCV 87 MCH 27.2 MCHC 31.3 RDW Std Deviation 54.0 H Plt Count 275 D Neut % (Auto) 75 Lymph % (Auto) 11 [place] % (Auto) 10 Eos % (Auto) 1 Baso % (Auto) 0 Neut # (Auto) 9.0 H Lymph # (Auto) 1.4 [place] # (Auto) 1.2 H Eos # (Auto) 0.1 Baso # (Auto) 0.1 Immature Gran # (Auto) 0.24 H Absolute Nucleated RBC 0.00 Immature Gran % 2 H Nucleated RBC % 0 Sodium 139 Potassium 3.9 Chloride 103 Carbon Dioxide 21.6 Anion Gap 14 BUN 17 Creatinine 0.8 Estim Creat Clear Calc 73.0 eGFR > 60 BUN/Creatinine Ratio 21 H Glucose 67 L Calculated Osmolality 277 Calcium 8.4 Corrected Calcium 9.1 Phosphorus 3.1 Magnesium 1.8 Total Bilirubin 0.7 AST 92 H ALT 73 H Alkaline Phosphatase 258 H D Total Protein 5.9 Albumin 3.1 L Globulin 2.8 Albumin/Globulin Ratio 1.1 L ABG Interpretation ABG results: 03/18/25 10:50 VBG pH 7.39 VBG pCO2 41 VBG pO2 65 H VBG Base Excess 0 Quality Measures Quality Measures none Advance care planning discussed with:: patient Assessment & Plan Assessment Current Active Medications: Generic Name Dose Route Start Last Admin Trade Name Freq PRN Reason Stop Dose Admin Acetaminophen 650 mg 03/18/25 17:29 Acetaminophen 325 Mg Tablet PO 04/17/25 17:28 Q6H PRN Fever >100 or pain 1-3 Hydrocodone Bitart/Acetaminophen 1 tab 03/18/25 21:15 03/20/25 20:29 Hydrocodone/Apap 5/325 Tablet PO 03/23/25 21:14 1 tab Q6HR PRN Administration BREAKTHROUGH PAIN Protocol Atorvastatin Calcium 10 mg 03/19/25 21:00 03/20/25 20:23 Atorvastatin Calcium 10 Mg Tablet PO 04/18/25 20:59 10 mg HS SHILO Administration Dextrose 25 ml 03/21/25 11:53 Dextrose 50%-Water Inj 50 Ml Syringe IV 04/20/25 11:52 Q15MIN PRN BG 50-70 responsive npo pt Dextrose 50 ml 03/21/25 11:53 Dextrose 50%-Water Inj 50 Ml Syringe IV 04/20/25 11:52 Q15MIN PRN BG <50 OR BG <70 & pt unresponsive Dronabinol 2.5 mg 03/21/25 17:00 Dronabinol 2.5 Mg Capsule PO 04/20/25 16:59 BIDAC SHILO Enoxaparin Sodium 40 mg 03/19/25 09:00 03/21/25 09:13 Enoxaparin Sod Inj 40 Mg/0.4 Ml Syringe SC 04/02/25 08:59 40 mg QDAY SHILO Administration Glucagon 1 mg 03/21/25 11:53 Glucagon Inj 1 Mg Vial IM Q15MIN PRN BG <70, and no IV access Piperacillin/Tazobactam/Dextrose 3.375 gm in 50 mls @ 12.5 mls/hr 03/20/25 06:00 03/21/25 11:36 Zosyn IV 03/27/25 05:59 12.5 mls/hr Q6HR SHILO Administration Lacosamide 200 mg 03/19/25 14:07 03/21/25 09:13 Lacosamide 50 Mg Tablet PO 04/18/25 10:59 200 mg BID SHILO Administration Levetiracetam 750 mg 03/18/25 21:00 03/21/25 09:13 Levetiracetam 250 Mg Tablet PO 04/17/25 20:59 750 mg BID SHILO Administration Pantoprazole Sodium 40 mg 03/19/25 09:00 03/21/25 09:13 Pantoprazole 40 Mg Tablet PO 04/18/25 08:59 40 mg QDAY SHILO Administration Phenytoin 300 mg 03/19/25 21:00 03/20/25 20:23 Phenytoin 100 Mg Capsr PO 04/18/25 20:59 300 mg HS SHILO Administration Sennosides 1 tab 03/18/25 17:50 Senna Tablet PO 04/17/25 17:49 DAILY PRN CONSTIPATION Protocol Plan Assessment 69 year old male with past medical history for seizures, hyperlipidemia, CVA admitted due to sepsis likely secondary to UTI and community-acquired PNA. Admitted for IV abx. #Complicated UTI #Community acquired pneumonia #Sepsis - ruled out Presented with systemic signs present Fever. Tachycardia. Tachypnea. Toxic appearing. Patient has chronic Arevalo catheter. This may be related to UTI. WBC 11.9 (13.5), Hgb 8.6 (10.1), Plt 223 (212) Lactate: 1.8 Procalcitonin 1.51 ESR 71 U/A: RBC 337, WBC 337, Leuk + CXR: Suspicious for early left base pneumonia Urine Cx sent 03/19/25 Blood Cx no growth after 48h Plan Zosyn 3.375g q6h Urine Cx pending (sent 03/19/25) O2 as needed #Poor oral intake Patient has had nothing to eat in the past 24 hours Plan Dietitian consulted today Dronabinol 2.5 mg started today D50 push given #Transaminitis #Chronic Hepatitis C positive DDx: NAFLD, Hepatitis, Cirrhosis, Anti-seizure meds Hepatis C positive LFTs: AST 110, ALT 90, Alk Phos 141, Albumin 2.9 Coag: PT 12.9, INR 1.2 Plan Trend LFTs #Hx of meningioma Underwent craniotomy and resection of large right frontal tumor on 02/20/25 at [facility]. Patholgy was consistent with meningioma. Plan - F/U Neurology outpatient for continued care #Hx of Seizures - On home dose Keppra 500mg BID - Restarted on Lacosamide 200mg PO BID and Phenytoin 300mg #Constipation -Senna #Hyperlipidemia Chol 95, LDL 47 Plan -Lipitor 10mg qHS Health Maintenance: Diet: regular GI prophylaxis: protonix DVT prophylaxis: enoxaparin Antibiotics: Zosyn CODE STATUS: full Disposition: telemetry Case discussed with my attending Dr. Camacho and senior resident Dr. Qing Ragsdale MD PGY-1 Attending Provider Attestation/Addendum I attest that I was physically present for the evaluation, physical examination, lab and imaging review of the patient with the residents. I discussed the case with the residents and agree with the findings and plans of care as documented above. Maxim Camacho MD
[2025-03-21] MEDS: HYDROcodone/APAP 5/325 TABLET 1 TAB PO (17:46)
[2025-03-21] MEDS: ATORVASTATIN CALCIUM 10 MG TABLET PO (20:26)
[2025-03-21] MEDS: PHENYTOIN 100 MG CAPSR 300 MG PO (20:26)
[2025-03-22] VITALS (7 sets, daily range): BP systolic 107–142; BP diastolic 66–87; PULSE 82–91; RESP 15–95; TEMP 36.1–36.4; O2SAT 95–96
[2025-03-22] MEDS: PIPER/TAZO 3.375 GM PREMIX 3.375 GM/50 ML BAG IV ×5 (00:38→17:05)
[2025-03-22 06:28] LABS: Basophils # (Auto) 0.1 Thou/mm3 (0.0-0.2); Basophils % (Auto) 1 % (0-2.5); Eosinophils # (Auto) 0.1 Thou/mm3 (0.0-0.5); Eosinophils % (Auto) 0 % (0-10); Hematocrit 28.2 % (41.0-53.0); Hemoglobin 9.2 g/dL (13.5-16.0); Immature Granulocytes Auto 0.70 Thou/mm3 (0.00-0.00); Lymphocytes # (Auto) 1.4 Thou/mm3 (1.0-4.8); Lymphocytes % (Auto) 11 % (10-50); Mean Corpuscular HGB Conc 32.6 g/dl (31.0-37.0); Mean Corpuscular Hemoglobin 27.2 pg (25.0-35.0); Mean Corpuscular Volume 83 fL (80-100); Monocytes # (Auto) 1.4 Thou/mm3 (0.0-0.8); Monocytes % (Auto) 12 % (0-12); Neutrophils # (Auto) 8.6 Thou/mm3 (1.8-7.7); Neutrophils % (Auto) 71 % (37-80); Nucleated Red Blood Cell # 0.00 Thou/mm3 (0.00-0.00); Nucleated Red Blood Cell % 0 /100 WBC (0); Platelet Count 315 Thou/mm3 (140-440); RDW Standard Deviation 51.2 fL (35.1-43.9); Red Blood Count 3.38 Miln/mm3 (4.50-5.90); White Blood Count 12.2 Thou/mm3 (3.8-10.6)
[2025-03-22 06:58] LABS: Alanine Aminotransferase 79 U/L (10-49); Albumin, Serum 3.2 gm/dL (3.4-4.8); Albumin/Globulin Ratio 1.1 (1.2-2.2); Alkaline Phosphatase 371 U/L (46-116); Anion Gap 10 (7-16); Aspartate Amino Transferase 109 U/L (0-34); BUN/Creatinine Ratio 20 Ratio (12-20); Bilirubin,Total 0.6 mg/dL (0.3-1.2); Blood Urea Nitrogen 14 mg/dL (9-23); Calcium 8.3 mg/dL (8.3-10.6); Calcium (Corrected) 8.9 mg/dL (8.5-10.1); Carbon Dioxide 26.6 mMol/L (20.0-31.0); Chloride 103 mMol/L (98-107); Creatinine (Component) 0.7 mg/dL (0.6-1.3); Estimated Creatinine Clearance 83.4 mL/min (>60); Globulin 2.8 gm/dL (2.3-3.5); Glucose 134 mg/dL (74-106); Magnesium 1.8 mg/dL (1.6-2.6); Osmolality,Calculated 281 (275-295); Phosphorous 1.9 mg/dL (2.4-5.1); Potassium 3.4 mMol/L (3.4-5.1); Sodium 140 mMol/L (136-145); Total Protein 6.0 gm/dL (5.7-8.2); eGFR > 60 See Note
--- NOTE | 2025-03-22 07:17 | CHAP ---
Patient was visited by a Spiritual Care Volunteer on 03/21/2025 between 1350 and 1654 and received comfort, encouragement and/or prayer.
[2025-03-22] MEDS: PANTOPRAZOLE 40 MG TABLET PO (09:52)
[2025-03-22] MEDS: LACOSAMIDE 50 MG TABLET 200 MG PO (09:53)
[2025-03-22] MEDS: ENOXAPARIN SOD INJ 40 MG/0.4 ML SYRINGE SC (09:53)
[2025-03-22] MEDS: NAPH,KPH MBDB 1 PACKET (1.5 GM) 2 PACKET PO (10:53)
[2025-03-22] MEDS: HYDROcodone/APAP 5/325 TABLET 1 TAB PO (10:59)
--- NOTE | 2025-03-22 11:24 | ESDS_ITS ---
<Statement entered by Suzette Longo MD - 03/22/25 22:21> I have reviewed the note and agree with the resident's assessment & plan with exceptions as below. I have personally reviewed labs, imaging, home meds/prior records, examined the patient, formulated and discussed management plan with the IM team. Pt to follow discharge instructions as outlined below. Pt to be discharged with additional days of Levaquin for sensitive Enterobacter UTI. Pt to be discharged to SNF with hospice. Suzette Longo, PGY-2 Internal Medicine Planned Discharge Date 03/22/25 DS: Providers Provider Date of admission: 03/18/25 17:30 Primary care physician: Jerrod Nuno PA-C Admitting Provider: Alejandro Hameed MD Attending Provider on Admission: Maxim Camacho MD Consults: 03/19/25 16:13 Referral Physical Therapy Routine Comment: Physician Instructions: 03/20/25 13:17 Referral Hospice Routine Comment: on [place] office 03/21/25 08:38 Referral Registered Dietitian Routine Comment: hypoglycemia, failure to thrive Attending Provider on DC: Blayne Lubin MD Discharging Provider: Blayne Lubin MD DS: Diagnosis Problem List Completed Was Problem List Reviewed/Reconciled?: Yes Hospital Course Hospital Course Hospital course: 69 year old male with past medical history for seizures, hyperlipidemia, and CVA coming from senior living with increased lethargy and subjective fever and admitted due to complicated UTI and community-acquired PNA. Admitted for IV abx. 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 ED course: EKG: Sinus tachycardia (111 bpm) with nonspecific ST-T changes. CXR showed early left base pneumonia. Treatment in ED included IV fluid, Tylenol, Toradol, and Rocephin. Urine culture grew Enterobacter cloacae. Patient received 3 days of IV antibiotics and was transition to oral levofloxacin x 4 days outpatient. While in hospital RD was consulted as patient was not eating and recommended Ensure Protein BID and Mechanical Dysphagia 2 regular diet. Discharge Instructions: Follow-up with PCP within one week Take meds as prescribed Finish your antibiotic, Levaquin for your UTI Repeat CMP with one week to check on liver enzymes Recommend a Mechanical dysphagia II diet, and also Ensure Plus Protein Continue with Hospice Care Return to ER if your symptoms worsen or return Problem list: #Complicated UTI #Community acquired pneumonia #Transaminitis #Chronic Hepatitis C positive #Hx of meningioma #Hx of Seizures #Constipation #Hyperlipidemia Case discussed with my attending Dr. Lubin, and senior resident Dr. Qing Ragsdale MD PGY1 Time Spent with Patient Time attestation: Total time spent providing and/or coordinating discharge services: Time spent: Greater than 30 minutes Exam Vital Signs Temp Pulse Resp BP Pulse Ox O2 Del Method O2 Flow Rate 97.2 F 85 20 123/79 95 Room Air 1 03/22/25 08:00 03/22/25 08:08 03/22/25 08:08 03/22/25 08:00 03/22/25 08:00 03/22/25 08:00 03/20/25 19:46 Narrative Exam General: Lethargic. A&O x 1 (person). Not good historian. HEENT: Conjunctivae and lids clear. No nasal congestion. Neck supple Heart: S1 +S2. No murmurs/rubs/gallops Lungs: No respiratory distress. Good air movement. No severe rhonchi, wheezing, rales. Abdomen: Bowel sounds present. Soft. Tender to R and L flanks Skin: Warm and dry. Neuro: No focal deficits. Reduced motor function of R upper and lower limbs following stroke. Decreased ROM of all 4 limbs Discharge Plan Plan Patient Disposition: Xfer Skilled Nsg Fac (SNF) Disposition Comment: [facility] Patient condition on transfer: Stable Care Plan Goals: Discharge Instructions: Follow up with PCP within one week Take meds as prescribed Finish your antibiotic, Levaquin for your UTI Repeat CMP with one week to check on liver enzymes Recommend a Mechanical dysphagia II diet, and also Ensure Plus Protein Continue with Hospice Care Return to ER if your symptoms worsen or return Prescriptions/Referrals Prescriptions/Med Rec: New levofloxacin 750 mg tablet 750 mg PO QDAY 4 Days Qty: 4 0RF Rx Instructions: Take one tablet by mouth every day Continued tamsulosin 0.4 mg Capsule 0.4 mg PO QDAY atorvastatin 10 mg tablet 1 tab PO HS Patient Comments: TAKE 1 TABLET BY MOUTH EVERYDAY AT BEDTIME oxybutynin chloride 5 mg Tablet 5 mg PO QDAY ascorbic acid (vitamin C) 500 mg Tablet 500 mg PO QDAY bisacodyl [Dulcolax (bisacodyl)] 10 mg Suppository 10 mg AZ QDAY PRN (Reason: Constipation) acetaminophen 650 mg suppository 650 mg AZ Q6H PRN (Reason: fever >101.5) Patient Comments: INSERT ONE SUPPOSITORY RECTALLY EVERY 6 HOURS NEEDED FOR FEVER amlodipine [Norvasc] 10 mg tablet 10 mg PO QDAY docusate sodium [Col-Rite] 100 mg capsule 100 mg PO QDAY hydrocodone-acetaminophen 5-325 mg tablet 1 tab PO Q6H PRN (Reason: pain) hyoscyamine sulfate 0.125 mg tablet,disintegrating 0.125 mg PO Q4H PRN (Reason: secretions) Patient Comments: TAKE ONE TABLET BY MOUTH EVERY 4 HOURS NEEDED FOR excess secretions lacosamide 200 mg capsule,extended release 24hr 200 mg PO 2XD levetiracetam 750 mg tablet 500 mg PO 2XD Rx Instructions: give 3 tablet by mouth 2 times a day lorazepam 0.5 mg tablet 0.5 mg PO Q6H PRN (Reason: anxiety) Patient Comments: TAKE ONE TABLET BY MOUTH EVERY 6 HOURS NEEDED anxiety, restlessness or agitation multivitamin [Daily Multi-Vitamin] Tablet 1 tab PO QAM phenytoin sodium extended [Dilantin Extended] 100 mg capsule 100 mg PO QDAY Rx Instructions: give 3 capsules by mouth at bedtime morphine 20 mg/5 mL (4 mg/mL) solution 2 mg PO Q4H PRN (Reason: pain or SOB) Rx Instructions: give 0.5ml every 4 hours for moderate pain or SOB, give 1ml every 2 hours as needed for severe pain or SOB Discontinued hydrocodone-acetaminophen 10-325 mg Tablet 1 tab PO Q8H PRN (Reason: Pain (Scale Score 4-6)) Fleet Enema 19-7 gram/118 mL Enema 118 ml AZ QDAY PRN (Reason: Constipation) Referrals: Jerrod Nuno PA-C [Primary Care Provider] - Patient/Caregiver Discharge Instructions Discharge Activity: activity as tolerated Education Materials: Anatomy of the Male Urinary Tract, Treating Pneumonia, Acute Kidney Failure Dc Print Language: Armenian Stand Alone Forms: [employer] Info., Patient Portal Info Letter Discharge Order Discharge Orders: Discharge (Routine); Ordered 03/22/25 Ordered By: Logan Wei Quality Discharge Quality Measures VTE prophylaxis MD Attestestation MD Attestation I have examined the patient, reviewed labs and imaging findings, discussed the case with the resident(s), and reviewed entered orders. I agree with the plan of care as outlined in this note. Time Spent: [address] Amee MD
--- NOTE | 2025-03-22 11:46 | PC.SS ---
SS called [facility] to initiate transport to [facility]. Trip #[id number].
--- NOTE | 2025-03-22 12:30 | PC.SS ---
SS contacted [facility] to check if [facility] released to them, Gema stated no. SS therefore called [facility] and inquired on Trip #[id number], per rep it was assigned to [facility]. SS informed them of information obtained by Gema. They stated the routing team will have to call, to give them time they have up to 4 hrs.
--- NOTE | 2025-03-22 13:30 | PC.SS ---
SS contacted [place] to check on transport, still hasn't been released by [facility].
--- NOTE | 2025-03-22 13:50 | PC.SS ---
SS contacted [facility] in regards to transport, per Love we are still pending routing team to release to [place].
--- NOTE | 2025-03-22 15:35 | PC.SS ---
SS contacted [facility] to check on status, still pending release to [place].
--- NOTE | 2025-03-22 15:37 | PC.SS ---
SS spoke to Perico with [place], and Jennifer with [facility] to update on transport barrier.
--- NOTE | 2025-03-22 16:14 | PC.SS ---
SS contacted [facility] to check on status, SS spoke to Kelly who apologized for the issues, she pushed request to transport routing team to contact [facility] to release Trip ID. SS still waiting for a call from [facility]. All paper work sent vale KEITH. SS updated FANG, Portia ext [phone]
--- NOTE | 2025-03-22 16:31 | PC.SS ---
SS called [place], still no release from routing department ([facility]). SS informed Gema if they do if she can please arrange with [facility]ANG Pearce ext [phone] who is here until 1730.
--- NOTE | 2025-03-22 17:04 | PC.SS ---
SS update: contacted [facility] for update on transportation. Provided them reference number and they informed ETA is 7:30pm with [facility]. Confirmed with [facility] dispatch team. Notified [facility] and SNF staff Stephanie on the ETA provided. grain elevator clerk Chip informed to notify [facility].
--- NOTE | 2025-03-22 17:45 | PC.LAC ---
Report called and given to snf nurse Sabiha at [facility]. Patients ETA approx [phone] via ambulance today. Pt to be discharged back to [facility].
--- NOTE | 2025-03-22 19:38 | PC.NURSE ---
Pt picked up by ambulance IV 22g to left hand removed along with tele box, report given to SNF by Adina EARL.
== END 2025-03-22 19:38 | disposition skilled nursing facility (03) | DRG 871 ==
LOC: SERX 15:52 → SERHOLD 18:06 → S3NX 03-19 00:07
PROVIDERS: Emergency Medicine; Admitting Provider Internal Medicine; Emergency Provider Emergency Medicine; PCP Physician Assistant; Visit Provider Student in an Organized Health Care Education/Training Program
DX: A41.59 Other Gram-negative sepsis (principal); J18.9 Pneumonia, unspecified organism; K72.00 Acute and subacute hepatic failure without coma; N10 Acute pyelonephritis; I69.351 Hemiplegia and hemiparesis following cerebral infarction affecting right dominant side; Z16.30 Resistance to unspecified antimicrobial drugs; E78.5 Hyperlipidemia, unspecified; K59.00 Constipation, unspecified; G40.909 Epilepsy, unspecified, not intractable, without status epilepticus; D32.9 Benign neoplasm of meninges, unspecified; I10 Essential (primary) hypertension; B18.2 Chronic viral hepatitis C; Z51.5 Encounter for palliative care; Z99.3 Dependence on wheelchair; Z87.891 Personal history of nicotine dependence; B96.89 Other specified bacterial agents as the cause of diseases classified elsewhere
CPT/HCPCS: 36415; 71045; 76700; 80053; 80061; 80074; 80185; 81001; 82248; 82803; 83605; 83735; 84100; 84145; 84439; 84443; 84484; 85025; 85610; 85652; 86140; 87040; 87077; 87081; 87086; 87186; 87400; 87811; 93005; 93225; 96361; 96365; 96367; 96368; 96375; 97161; 99285; J0131; J0696; J1650; J1885; J2405; J2543; J7030; Q0167; A9270